=== PATIENT | female | born 1930 ===

== ENCOUNTER 2016-11-06 12:10 | Emergency (ER) | payer OTHER ==
--- NOTE | 2016-11-06 13:04 | ED PDOC ---
Lower Extremity Pain/Injury Time Seen by Provider: 11/06/16 12:40 Chief Complaint (Nursing): Abnormal Skin Integrity Chief Complaint (Provider): Lower Extremity Problem/Injury History Per: Patient History/Exam Limitations: no limitations Onset/Duration Of Symptoms: Hrs (a few hours prior to arrival ) Additional Complaint(s): 12:40 Taryn Sanchez, 86 year old female presents to the ED on 11/06/16 after experiencing an injury to her lower right foot a few hours prior to arrival. The patient states that she was walking in her kitchen, tripped, and banged her right Achilles tendon in furniture. The patient denies any loss of consciousness , dizziness, or chest pain post injury. The patient has a past medical history inclusive of hypertension and her Tetanus shot is up to date. Past Medical History Reviewed: Historical Data, Nursing Documentation, Vital Signs - Medical History PMH: Fractures (vertebral compression; rib ), HTN, Osteoporosis Denies: Arthritis, CHF, COPD, HIV, Hypercholesterolemia, Hypothyroidism, Chronic Kidney Disease, Rheumatoid Arthritis - Family History Family History: States: Unknown Family Hx - Living Arrangements Living Arrangements: With Family - Social History Current smoker - smoking cessation education provided: No - Immunization History Hx Tetanus Toxoid Vaccination: Yes (4 years ago while she was in [place]) - Home Medications Home Medications: Ambulatory Orders Medication Instructions Recorded Aspirin [Aspirin EC] 81 mg PO DAILY 08/11/14 Acetaminophen [Tylenol Extra 500 mg PO Q6 PRN 05/01/16 Strength] Isosorbide Mononitrate [Imdur] 30 mg PO DAILY 05/01/16 Losartan [Cozaar] 50 mg PO DAILY 05/01/16 Megestrol [Megace] 10 ml PO BID 05/01/16 Metoprolol Succinate [Toprol XL] 25 mg PO DAILY 05/01/16 Alendronate [Fosamax] 70 mg PO QWK@0730 #0 tab 05/05/16 Calcium Gluconate [calcium 500 mg PO TID #0 tab 05/05/16 gluconate] Cephalexin [cephalexin] 500 mg PO BID #10 cap 05/05/16 Cyanocobalamin (Vitamin B-12) 1,000 mcg PO DAILY #0 tablet.er 05/05/16 [Vitamin B-12] Ergocalciferol [Drisdol 50,000 1 cap PO Q7D #0 cap 05/05/16 Intl Units Cap] Sulfamethoxazole/Trimethoprim 1 tab PO BID #14 tab 11/06/16 [Bactrim DS 800 mg-160 mg] - Allergies Allergies/Adverse Reactions: Allergies Allergy/AdvReac Type Severity Reaction Status Date / Time No Known Allergies Allergy Verified 11/06/16 12:32 Review of Systems ROS Statement: Except As Marked, All Systems Reviewed And Found Negative Cardiovascular: Negative for: Chest Pain Musculoskeletal: Positive for: Foot Pain (right achilles tendon injury ) Neurological: Negative for: Dizziness, Other (no loss of consciousness ) Physical Exam - Reviewed Nursing Documentation Reviewed: Yes Vital Signs Reviewed: Yes - Physical Exam Appears: Positive for: Non-toxic, No Acute Distress Head Exam: Positive for: ATRAUMATIC, NORMOCEPHALIC Skin: Positive for: Normal Color, Warm, Dry Extremity: Positive for: Normal ROM, Other (4 cm avulsion of right achilles tendon) Neurologic/Psych: Positive for: Alert (awake), Oriented (x3). Negative for: Motor/Sensory Deficits Medical Decision Making Medical Decision Makin:40 Initial Impression: 86 year old female with an avulsion to her right Achilles tendon Initial Plan: * Wound Care Scribe Attestation: Documented by Dede Fenton, acting as a scribe for Makeda Lee MD. Provider Scribe Attestation: All medical record entries made by the Scribe were at my direction and personally dictated by me. I have reviewed the chart and agree that the record accurately reflects my personal performance of the history, physical exam, medical decision making, and the department course for this patient. I have also personally directed, reviewed, and agree with the discharge instructions and disposition. Disposition - Clinical Impression Clinical Impression: Avulsion of skin of right lower leg - Patient ED Disposition Is Patient to be Admitted: No Doctor Will See Patient In The: Office Counseled Patient/Family Regarding: Diagnosis, Need For Followup, Rx Given - Disposition Referrals: Brando Romo MD [Family Provider] - 11/08/16 [facility] [Outside] [employer] [Outside] Disposition: Routine/Home Disposition Time: 13:19 Condition: STABLE Prescriptions: Sulfamethoxazole/Trimethoprim [Bactrim DS 800 mg-160 mg] 1 tab PO BID #14 tab Instructions: Skin Avulsion (ED), Acute Wound Care (ED) Print Language: PORTUGUESE - POA Present On Arrival: Falls Or Trauma
[2016-11-06 13:17] VITALS: BP 127/90; PULSE 106; RESP 93; TEMP 97; O2SAT 93
[2016-11-06] MEDS ORDERED: Tmp-Smz 800 mg-160 mg DS Tab PO STA (13:17)
[2016-11-06] MEDS ORDERED: Tmp-Smz 800 mg-160 mg DS Tab ONE (13:24)
== END 2016-11-06 13:40 | disposition home or self-care (01) ==
LOC: H.ER 12:10
DX: S81.801A Unspecified open wound, right lower leg, initial encounter (principal); W22.8XXA Striking against or struck by other objects, initial encounter; Y92.000 Kitchen of unspecified non-institutional (private) residence as the place of occurrence of the external cause; I10 Essential (primary) hypertension; M81.0 Age-related osteoporosis without current pathological fracture; Z79.82 Long term (current) use of aspirin

== ENCOUNTER 2016-12-26 16:29 | Observation (INO) | payer MEDICARE, OTHER ==
[2016-12-26 16:34] VITALS: RESP 18; O2SAT 92
--- NOTE | 2016-12-26 17:46 | ED PDOC ---
HPI: Chest Pain Time Seen by Provider: 12/26/16 16:40 Chief Complaint (Nursing): Rib Injury Chief Complaint (Provider): Chest Pain History Per: Patient, EMS, Family (son), Ap Operator ([employer] #[id number]) History/Exam Limitations: no limitations Current Symptoms Are (Timing): Still Present Severity: Moderate Quality: "Pain" Additional Complaint(s): Taryn Sanchez is a 86 y/o female presenting to the ER on 12/26/2016 via EMS with complaints of right sided chest pain onset last night. Patient states pain began when she attempted to pecan picker an object under the stove. She has been feeling chest pain intermittently ever since she was diagnosed with rib fracture one year ago in same area. However, she states her pain has been at its worst yesterday. She denies blunt trauma, hematuria, palpitations, left sided chest pain, history of DVT/ PE/ leg pain, other injuries, cough, or hemoptysis. Past Medical History Reviewed: Historical Data, Nursing Documentation, Vital Signs Vital Signs: Last Vital Signs Temp 97.9 F 12/26/16 23:09 Pulse 86 12/26/16 23:05 Resp 18 12/26/16 23:09 BP 144/100 H 12/26/16 23:05 Pulse Ox 92 L 12/26/16 23:08 - Medical History PMH: Fractures (vertebral compression; rib ), HTN, Osteoporosis Denies: Arthritis, CHF, COPD, HIV, Hypercholesterolemia, Hypothyroidism, Chronic Kidney Disease, Rheumatoid Arthritis - Surgical History Surgical History: No Surg Hx - Family History Family History: States: Unknown Family Hx - Living Arrangements Living Arrangements: With Family - Social History Current smoker - smoking cessation education provided: No Alcohol: None Drugs: Denies - Immunization History Hx Tetanus Toxoid Vaccination: Yes (4 years ago while she was in [place]) - Home Medications Home Medications: Ambulatory Orders Medication Instructions Recorded Acetaminophen [Tylenol Extra 500 mg PO Q6 PRN 05/01/16 Strength] Losartan [Cozaar] 50 mg PO DAILY 05/01/16 Alendronate [Fosamax] 70 mg PO QWK 12/26/16 Isosorbide Dinitrate [Isosorbide 30 mg PO DAILY 12/26/16 Dinitrate] Lidocaine 5% [Lidoderm] 1 ea TD DAILY PRN #10 patch 12/26/16 Metoprolol Tartrate [Lopressor] 25 mg PO DAILY 12/26/16 - Allergies Allergies/Adverse Reactions: Allergies Allergy/AdvReac Type Severity Reaction Status Date / Time No Known Allergies Allergy Verified 11/06/16 12:32 Review of Systems ROS Statement: Except As Marked, All Systems Reviewed And Found Negative Cardiovascular: Positive for: Chest Pain. Negative for: Palpitations Respiratory: Negative for: Cough, Hemoptysis, Sputum Genitourinary Female: Negative for: Hematuria Physical Exam - Reviewed Nursing Documentation Reviewed: Yes Vital Signs Reviewed: Yes - Physical Exam Appears: Positive for: Non-toxic, No Acute Distress Head Exam: Positive for: ATRAUMATIC, NORMOCEPHALIC Skin: Positive for: Normal Color. Negative for: Rash Eye Exam: Positive for: Normal appearance, EOMI, PERRL Neck: Positive for: Normal Cardiovascular/Chest: Positive for: Regular Rate, Rhythm. Negative for: Chest Non Tender (minimal right sided axillary chest wall tenderness) Respiratory: Positive for: Normal Breath Sounds. Negative for: Wheezing, Respiratory Distress Gastrointestinal/Abdominal: Positive for: Normal Exam, Soft. Negative for: Tenderness Back: Positive for: Normal Inspection. Negative for: L CVA Tenderness, R CVA Tenderness Extremity: Positive for: Normal ROM. Negative for: Deformity, Swelling Neurologic/Psych: Positive for: Alert, Oriented, Other (pt is able to speak in complete sentences ). Negative for: Motor/Sensory Deficits - Laboratory Results Result Diagrams: 12/26/16 17:31 12/26/16 17:31 - ECG O2 Sat by Pulse Oximetry: 92 Medical Decision Making Medical Decision Makin:40 Initial Impression- 86 y/o female with right-sided chest pain Initial Plan- * CT Angio Chest * EKG * BNP * CMP * Troponin * CBC w/ differential * Urinalysis Pt will be placed under ED Observation. See ED OBS for further progress. Documented by Ayad Rodriguez, acting as a scribe for Familia Cobb PA-C All medical record entries made by the Scribe were at my direction and personally dictated by me. I have reviewed the chart and agree that the record accurately reflects my personal performance of the history, physical exam, medical decision making, and the department course for this patient. I have also personally directed, reviewed, and agree with the discharge instructions and disposition. ED OBSERVATION Discharge: Yes Date of observation admission: 12/26/16 Time of observation admission: 17:32 - Observation admission statement Patient is being placed in observation because:: Secondary to extensive ED workup - Goals of Observation Goals of observation are:: Pending labs and CT Angio - Progress Note Progress Note: 12/26/16 22:05 Pt. in no distress. 12/26/16 23:06 CT chest w/ contrast: IMPRESSION: Cardiomegaly and atherosclerotic disease, no aneurysm, dissection or pulmonary embolus; small left effusion with bibasilar airspace disease, atelectasis and or infiltrate; osteopenia with multiple compression fractures and exaggeration of thoracic kyphosis R rib series: no acute fx Pt. informed of results using credit consultant [id number]. Reports no chest pain or SOB. Repeat POX: 96% on RA, BP: 146/90, HR: 88 Case d/w Dr. Gayle who states pt. can be discharged with lidoderm patch. Disposition - Clinical Impression Clinical Impression: Chest pain - Patient ED Disposition Is Patient to be Admitted: No - Disposition Disposition: Routine/Home Disposition Time: 23:08 Condition: STABLE
[2016-12-26 17:48] LABS: BASO % 0.4 % (0.0-2.0); LYMPH # 0.9 K/uL (1.0-4.3); LYMPH % 17.9 % (20.0-40.0); MEAN CELL VOLUME 97.3 fl (81.0-99.0); MEAN CORPUSCULAR HEMOGLOBIN 32.5 pg (27.0-31.0); MEAN CORPUSCULAR HGB CONC 33.5 g/dL (33.0-37.0); MEAN PLATELET VOLUME 7.7 fl (7.2-11.7); MONO # 0.3 K/uL (0.0-0.8); MONO % 5.3 % (0.0-10.0); NEUT # 3.6 K/uL (1.8-7.0); NEUT % 75.4 % (50.0-75.0); NRBC % 0.3 % (0.0-0.0); RBC 3.67 Mil/uL (3.80-5.20); RED CELL DISTRIBUTION WIDTH 16.6 % (11.5-14.5); WHITE BLOOD COUNT 4.8 K/uL (4.8-10.8)
[2016-12-26 18:01] LABS: ALB/GLOB RATIO 0.7 (1.0-2.1); ALBUMIN 4.1 g/dL (3.5-5.0); ALT/SGPT 28 U/L (9-52); AST/SGOT 35 U/L (14-36); BLOOD UREA NITROGEN 11 mg/dl (7-17); CALCIUM 9.8 mg/dL (8.4-10.2); GFR AFRICAN-AMERICAN > 60; GFR NON-AFRICAN AMERICAN > 60
[2016-12-26 18:14] LABS: B-TYPE NATRIURETIC PEPTIDE 922 pg/ml (0-900)
[2016-12-26] MEDS ORDERED: Iohexol 300 100 ML IJ ONE (20:31)
[2016-12-26] MEDS ORDERED: Sodium Chloride 0.9% 50 ML IV ONE (20:31)
--- NOTE | 2016-12-26 21:46 | CT ---
EXAM: CT Angiography Chest With Intravenous Contrast CLINICAL HISTORY: 86 years old, female; Pain; Chest pain; Right-sided chest pain; Additional info: R sided chest pain; Hypoxic TECHNIQUE: Axial computed tomographic angiography images of the chest with intravenous contrast using pulmonary embolism protocol. This CT exam was performed using one or more of the following dose reduction techniques: automated exposure control, adjustment of the mA and/or kV according to patient size, and/or use of iterative reconstruction technique. MIP reconstructed images were created and reviewed. Coronal and sagittal reformatted images were created and reviewed. CONTRAST: 65 mL of omnipaque administered intravenously. EXAM DATE/TIME: 12/26/2016 5:16 PM COMPARISON: Prior images are not available for review. FINDINGS: Heart, aorta and Pulmonary arteries: The heart is enlarged. There are coronary calcifications. There is no pericardial effusion. The aorta is mildly ectatic. There calcifications in the aorta and great vessels. There are no pulmonary emboli. Lungs and pleural spaces: Trachea and main bronchi are patent. Lungs are hyperinflated. There is apical pleural-parenchymal scarring. There is atelectasis/scarring at both lung bases. There is a small left effusion. Mediastinum: There are pathologically enlarged mediastinal or hilar nodes. The esophagus is unremarkable. Thyroid: Thyroid is unremarkable Bones/joints: There is exaggeration of the thoracic kyphosis. Bony structures are diffusely osteopenic. There is mild loss of height T4, T5, T7 and T11. There is moderate compression deformity L1. There is severe compression deformities and wedging T6, T8, T9 and T12.Bony structures are osteopenic. Soft tissues: unremarkable Lymph nodes: See above. Upper abdomen: There are no acute abnormalities in the visualized portion of the abdomen. IMPRESSION: Cardiomegaly and atherosclerotic disease, no aneurysm, dissection or pulmonary embolus; small left effusion with bibasilar airspace disease, atelectasis and or infiltrate; osteopenia with multiple compression fractures and exaggeration of thoracic kyphosis Additional findings as described above.
--- NOTE | 2016-12-26 22:15 | RAD ---
EXAM: XR Right Ribs and AP Chest, 3 or More Views CLINICAL HISTORY: 86 years old, female; Pain; Other: Right sided chest pain; Additional info: R sided chest pain TECHNIQUE: Frontal and oblique views of the right ribs and frontal view of the chest. EXAM DATE/TIME: 12/26/2016 6:36 PM COMPARISON: CTA chest 12/26/16 FINDINGS: Heart: The heart is enlarged. Mediastinum: Aorta is uncoiled. There are calcifications in the aortic wall. Hilar contours are unremarkable Vascularity: Pulmonary vascularity is normal. Lungs: There is mild prominence of interstitial markings. There patchy opacities at the lung bases. Pleura: There are no large effusions. Osseous structures: Bony structures are osteopenic. There degenerative changes in the spine. There are multiple compression fractures. Severe osteopenia limits evaluation of the ribs. No acute displaced rib fractures are visualized. Monitor leads obscure right-sided ribs Upper abdomen: There is contrast during prior study kidneys collecting systems and ureters. Impression: Cardiomegaly and atherosclerotic disease; minimal airspace disease at both lung bases; osteopenia and multiple compression fractures; no acute displaced rib fracture identified An acute nondisplaced rib fracture may be radiographically occult
[2016-12-26 23:09] VITALS: BP 144/100; PULSE 86; TEMP 97.9
--- NOTE | 2016-12-27 08:19 | CARD ---
APPROVED REPORT EKG Measurement Heart [id number] [id number] <Conclusion> Normal sinus rhythm Voltage criteria for left ventricular hypertrophy Cannot rule out Anteroseptal infarct, age undetermined Prolonged QT Abnormal ECG
== END 2016-12-26 23:09 | disposition home or self-care (01) ==
LOC: H.ER 16:29 → H.EROBSV 17:32
PROVIDERS: ADMIT Emergency Medicine; ATTEND Emergency Medicine
DX: R07.9 Chest pain, unspecified (principal); I10 Essential (primary) hypertension; M81.0 Age-related osteoporosis without current pathological fracture
CPT/HCPCS: 71101; 71275; 80053; 83880; 84484; 85025; 93005; 99284; G0378; Q9967

== ENCOUNTER 2017-05-01 14:28 | Emergency (ER) | payer MEDICARE, OTHER ==
[2017-05-01 14:34] VITALS: TEMP 97; O2SAT 99
--- NOTE | 2017-05-01 14:49 | ED PDOC ---
HPI: General Adult Time Seen by Provider: 05/01/17 14:36 Chief Complaint (Nursing): Abnormal Skin Integrity Chief Complaint (Provider): Abnormal Skin Interity History Per: Patient History/Exam Limitations: no limitations Onset/Duration Of Symptoms: Hrs (x 2) Have you had recent travel within the past 21 days to any of the following countries: [place], [place], [place] or [place]?: No Current Symptoms Are (Timing): Still Present Additional Complaint(s): Taryn is an 86 year old female, who was brought by EMS, presents to the Emergency Department for evaluation of a skin avulsion on her right arm. Patient states that at around 13:00 she was sitting on a chair where she tried to reach for the refrigerator, but upon reaching the refrigerator, she fell on her side. Per homemaker, grandson called her at 14:00. Denies head trauma, loss of consciousness. PMD: Brando Romo Past Medical History Reviewed: Historical Data, Nursing Documentation, Vital Signs Vital Signs: Last Vital Signs Temp 97.0 F L 05/01/17 14:29 Pulse 95 H 05/01/17 14:45 Resp 20 05/01/17 14:45 BP 161/95 H 05/01/17 14:45 Pulse Ox 99 05/01/17 15:22 - Medical History PMH: Fractures (vertebral compression; rib ), HTN, Osteoporosis Denies: Arthritis, CHF, COPD, HIV, Hypercholesterolemia, Hypothyroidism, Chronic Kidney Disease, Rheumatoid Arthritis - Family History Family History: States: Unknown Family Hx - Immunization History Hx Tetanus Toxoid Vaccination: Yes (4 years ago while she was in [place]) - Home Medications Home Medications: Ambulatory Orders Medication Instructions Recorded Acetaminophen [Tylenol Extra 500 mg PO Q6 PRN 05/01/16 Strength] Losartan [Cozaar] 50 mg PO DAILY 05/01/16 Alendronate [Fosamax] 70 mg PO QWK 12/26/16 Isosorbide Dinitrate [Isosorbide 30 mg PO DAILY 12/26/16 Dinitrate] Lidocaine 5% [Lidoderm] 1 ea TD DAILY PRN #10 patch 12/26/16 Metoprolol Tartrate [Lopressor] 25 mg PO DAILY 12/26/16 - Allergies Allergies/Adverse Reactions: Allergies Allergy/AdvReac Type Severity Reaction Status Date / Time No Known Allergies Allergy Verified 11/06/16 12:32 Review of Systems ROS Statement: Except As Marked, All Systems Reviewed And Found Negative Neurological: Negative for: Other (loss of consciousness nad head trauma) Physical Exam - Reviewed Nursing Documentation Reviewed: Yes Vital Signs Reviewed: Yes - Physical Exam Appears: Positive for: Non-toxic, No Acute Distress Head Exam: Positive for: NORMAL INSPECTION Skin: Negative for: Normal Color (see comments) Respiratory: Negative for: Respiratory Distress Extremity: Positive for: Normal ROM (Full ROM elbow, shoulder, and wrist) Neurologic/Psych: Positive for: Alert Comments: (+): right arm - 4 X 4 cm skin avulsion ; bleeding control; no tenderness - ECG O2 Sat by Pulse Oximetry: 99 (RA) Pulse Ox Interpretation: Normal Medical Decision Making Medical Decision Makin yo with skin avulsion of arm. - sterile dressing Pt BP elevated, states she did not take her 2 antihypertensives, has medications in ED, instructed to take now. Disposition - Clinical Impression Clinical Impression: Skin avulsion - Disposition Disposition: Routine/Home Disposition Time: 15:01 Condition: STABLE Additional Instructions: FOLLOW-UP WITH PMD FOR REEVALUATION. Instructions: Skin Avulsion (ED) Forms: [employer] (Slovenian) Print Language: SAO TOMEAN
[2017-05-01 15:40] VITALS: BP 161/95; PULSE 95; RESP 20
== END 2017-05-01 15:40 | disposition home or self-care (01) ==
LOC: H.ER 14:28
DX: T14.8XXA Other injury of unspecified body region, initial encounter (principal); W22.8XXA Striking against or struck by other objects, initial encounter; Y92.89 Other specified places as the place of occurrence of the external cause

== ENCOUNTER 2017-05-12 11:38 | Observation (INO) | payer MEDICARE, OTHER ==
--- NOTE | 2017-05-12 12:04 | ED PDOC ---
HPI: Chest Pain Time Seen by Provider: 05/12/17 11:55 Chief Complaint (Nursing): Chest Pain History Per: Patient Onset/Duration Of Symptoms: Days (3) Current Symptoms Are (Timing): Intermittent Episodes Severity: Mild Pain Scale Rating Of: 2 Quality: Tightness Associated Symptoms: denies: Dyspnea Modifying Factors: None Exacerbating Factors: None Additional Complaint(s): Substernal chest pain described as tightness, nonradiating. No SOB x 3 days. No fever or cough, no leg pain Past Medical History Vital Signs: Last Vital Signs Temp 97.7 F 05/12/17 11:45 Pulse 78 05/12/17 11:45 Resp 18 05/12/17 11:45 BP 156/87 H 05/12/17 11:45 Pulse Ox 94 L 05/12/17 12:04 - Medical History PMH: Fractures (vertebral compression; rib ), HTN, Osteoporosis Denies: Arthritis, CHF, COPD, HIV, Hypercholesterolemia, Hypothyroidism, Chronic Kidney Disease, Rheumatoid Arthritis - Family History Family History: States: Unknown Family Hx - Immunization History Hx Tetanus Toxoid Vaccination: Yes (4 years ago while she was in [place]) - Home Medications Home Medications: Ambulatory Orders Medication Instructions Recorded Acetaminophen [Tylenol Extra 500 mg PO Q6 PRN 05/01/16 Strength] Losartan [Cozaar] 50 mg PO DAILY 05/01/16 Alendronate [Fosamax] 70 mg PO QWK 12/26/16 Isosorbide Dinitrate [Isosorbide 30 mg PO DAILY 12/26/16 Dinitrate] Lidocaine 5% [Lidoderm] 1 ea TD DAILY PRN #10 patch 12/26/16 Metoprolol Tartrate [Lopressor] 25 mg PO DAILY 12/26/16 - Allergies Allergies/Adverse Reactions: Allergies Allergy/AdvReac Type Severity Reaction Status Date / Time No Known Allergies Allergy Verified 11/06/16 12:32 Review of Systems ROS Statement: Except As Marked, All Systems Reviewed And Found Negative Cardiovascular: Positive for: Chest Pain Physical Exam - Reviewed Nursing Documentation Reviewed: Yes Vital Signs Reviewed: Yes - Physical Exam Appears: Positive for: Non-toxic, No Acute Distress Head Exam: Positive for: ATRAUMATIC, NORMAL INSPECTION, NORMOCEPHALIC Skin: Positive for: Normal Color, Warm, DRY Eye Exam: Positive for: EOMI, Normal appearance, PERRL ENT: Positive for: Normal ENT Inspection Neck: Positive for: Normal, Painless ROM Cardiovascular/Chest: Positive for: Regular Rate, Rhythm Respiratory: Positive for: CNT, Normal Breath Sounds Gastrointestinal/Abdominal: Positive for: Normal Exam, Bowel Sounds, Soft Back: Negative for: Normal Inspection (Kyphotic) Extremity: Positive for: Normal ROM Neurologic/Psych: Positive for: Alert, Oriented - Laboratory Results Result Diagrams: 05/12/17 12:20 05/12/17 12:20 - ECG O2 Sat by Pulse Oximetry: 94 Disposition - Clinical Impression Clinical Impression: Chest pain - Patient ED Disposition Is Patient to be Admitted: Yes - Disposition Disposition Time: 13:10 Condition: STABLE Forms: [employer] (Wolof) - Pt Status Changed To: Hospital Disposition Of: Observation - POA Present On Arrival: None
[2017-05-12 12:46] LABS: ALKALINE PHOSPHATASE 95 U/L (38-126); ALT/SGPT 19 U/L (9-52); AST/SGOT 22 U/L (14-36); BILIRUBIN,TOTAL 0.6 mg/dl (0.2-1.3); BLOOD UREA NITROGEN 14 mg/dl (7-17); CALCIUM 9.2 mg/dL (8.4-10.2); CARBON DIOXIDE 30 mmol/L (22-30); CHLORIDE 103 mmol/L (98-107); GFR AFRICAN-AMERICAN > 60; GLUCOSE,RANDOM 99 mg/dL (65-105); POTASSIUM 3.9 MMOL/L (3.6-5.0); SODIUM 146 mmol/l (132-148); TOTAL PROTEIN 9.3 G/DL (6.3-8.2)
[2017-05-12 12:50] LABS: ALB/GLOB RATIO 0.7 (1.0-2.1)
[2017-05-12 13:05] LABS: BASO % 0.3 % (0.0-2.0); EOS # 0.1 K/uL (0.0-0.7); EOS % 2.7 % (0.0-4.0); HEMATOCRIT 27.4 % (34.0-47.0); LYMPH % 31.9 % (20.0-40.0); MEAN PLATELET VOLUME 6.9 fl (7.2-11.7); MONO # 0.2 K/uL (0.0-0.8); MONO % 7.6 % (0.0-10.0); NEUT # 1.8 K/uL (1.8-7.0); NEUT % 57.5 % (50.0-75.0); NRBC % 0.4 % (0.0-0.0); RED CELL DISTRIBUTION WIDTH 17.1 % (11.5-14.5); WHITE BLOOD COUNT 3.2 K/uL (4.8-10.8)
--- NOTE | 2017-05-12 13:08 | RAD ---
HISTORY: cough COMPARISON: Chest radiograph dated 12/26/2016. FINDINGS: LUNGS: Stable chronic prominence of the bilateral interstitial markings. No focal consolidation. PLEURA: No significant pleural effusion identified, no pneumothorax apparent. CARDIOVASCULAR: Atherosclerotic aortic calcifications. Unchanged cardiomediastinal silhouette. OSSEOUS STRUCTURES: Unchanged. VISUALIZED UPPER ABDOMEN: Normal. OTHER FINDINGS: None. IMPRESSION: Stable chronic prominence of the bilateral interstitial markings. No focal consolidation or pleural effusion.
--- NOTE | 2017-05-12 13:09 | CARD ---
APPROVED REPORT EKG Measurement Heart [id number] <Conclusion> Normal sinus rhythm Minimal voltage criteria for LVH, may be normal variant Septal infarct, age undetermined Abnormal ECG
[2017-05-13 08:08] LABS: BASO % 0.2 % (0.0-2.0); EOS # 0.1 K/uL (0.0-0.7); EOS % 2.3 % (0.0-4.0); HEMATOCRIT 26.7 % (34.0-47.0); LYMPH # 1.2 K/uL (1.0-4.3); LYMPH % 36.9 % (20.0-40.0); MEAN CELL VOLUME 98.9 fl (81.0-99.0); MEAN CORPUSCULAR HEMOGLOBIN 33.1 pg (27.0-31.0); MEAN CORPUSCULAR HGB CONC 33.5 g/dL (33.0-37.0); MONO # 0.2 K/uL (0.0-0.8); NEUT # 1.8 K/uL (1.8-7.0); NEUT % 53.6 % (50.0-75.0); NRBC % 0.4 % (0.0-0.0); RED CELL DISTRIBUTION WIDTH 17.4 % (11.5-14.5); WHITE BLOOD COUNT 3.4 K/uL (4.8-10.8)
[2017-05-13 08:17] LABS: BLOOD UREA NITROGEN 16 mg/dl (7-17); CALCIUM 9.4 mg/dL (8.4-10.2); CARBON DIOXIDE 32 mmol/L (22-30); CHLORIDE 102 mmol/L (98-107); CHOLESTEROL 96 mg/dL (0-199); GFR AFRICAN-AMERICAN > 60; GLUCOSE,RANDOM 85 mg/dL (65-105); POTASSIUM 4.3 MMOL/L (3.6-5.0); SODIUM 144 mmol/l (132-148)
[2017-05-13 08:44] LABS: THYROID STIMULATING HORMONE 0.52 mIU/ML (0.46-4.68)
[2017-05-13] MEDS ORDERED: Enoxaparin 40 mg Syringe SC SCH (09:00)
[2017-05-13] MEDS ORDERED: Metoprolol Succinate 25 mg XL Tab PO SCH (09:00)
[2017-05-13 11:53] VITALS: TEMP 98.1; O2SAT 99
--- NOTE | 2017-05-13 12:42 | CARD ---
APPROVED REPORT EKG Measurement Heart [id number] <Conclusion> Normal sinus rhythm Minimal voltage criteria for LVH, may be normal variant Septal infarct, age undetermined Abnormal ECG
--- NOTE | 2017-05-13 12:46 | CARD ---
APPROVED REPORT EKG Measurement Heart [id number] <Conclusion> Normal sinus rhythm Minimal voltage criteria for LVH, may be normal variant Anterior infarct, age undetermined Abnormal ECG
--- NOTE | 2017-05-13 13:01 | CP.PCM.CON ---
History of Present Illness - History of Present Illness History of Present Illness: this 86-year-old hypertensive female came to the emergency room complaining of a vague sense of chest discomfort for approximately 3 days and finally came to the emergency room when this became more pronounced. This was not accompanied by any nausea vomiting palpitations or sudden shortness of breath. The patient does admit that there is tenderness in the right second intercostal space in the parasternal area. She denies any injury to this region. She is a hypertensive who denies any history of diabetes or prior myocardial infarction. She does not have any symptoms of congestive cardiac failure such as shortness of breath or pedal edema or orthopnea. She denied any history of smoking. She admitted to taking antihypertensives medications for a long time. Physical examination shows a thin built frail elderly female lying comfortably in bed who indicates that there is tenderness in the right parasternal region second intercostal space. Her heart rate was 64 bpm and regular and her blood pressure shirlene 110/70 mmHg. Her jugular venous pressure was not elevated and there was no edema over the lower extremities. The patient is markedly kyphotic. Her extremities were warm and and nailbeds were pink. There was no central or peripheral cyanosis. There was no clubbing. The apex was not palpable.her first and second heart sounds were normal. There was no S3 gallop and there were no rales. Abdomen was nontender and there was no organomegaly. Her electrocardiogram showed sinus rhythm with a pattern suggestive of left ventricular hypertrophy and lateral Q waves from V3 to V6. Multiple electrocardiograms did not show any evolving ST-T abnormalities of fresh Q waves. Her troponin up to 3 times in a row 8 hours apart was negative for any evidence of myocyte injury. Her hemoglobin and hematocrit show a mild drop from her hemoglobin levels of December and her MCV has gradually increased from 90 to approximately 100. B12 deficiency or folate deficiency should BE ruled out. Her BUN and creatinine were normal. Impression: chest wall pain in the patient with a history of hypertension. Acute coronary syndrome has been ruled out. The patient may be allowed to return home and be managed as an outpatient. Past Patient History - Tetanus Immunizations Tetanus Immunization: Unknown - Past Medical History & Family History Past Medical History?: Yes - Past Social History Smoking Status: Never Smoked - CARDIAC Hx Congestive Heart Failure: No Hx Hypercholesterolemia: No Hx Hypertension: Yes - PULMONARY Hx Chronic Obstructive Pulmonary Disease (COPD): No - NEUROLOGICAL Hx Neurological Disorder: No HX Cerebrovascular Accident: No - HEENT Hx HEENT Problems: No - RENAL Hx Chronic Kidney Disease: No - ENDOCRINE/METABOLIC Hx Hypothyroidism: No - HEMATOLOGICAL/ONCOLOGICAL Hx Human Immunodeficiency Virus (HIV): No - INTEGUMENTARY Hx Dermatological Problems: No - MUSCULOSKELETAL/RHEUMATOLOGICAL Hx Falls: Yes (FELL 2 DAYS AGO) Hx Osteoporosis: Yes Other/Comment: VERTEBRAL COMPRESSION FX. KYPHOSIS - GASTROINTESTINAL Hx Gastrointestinal Disorders: Yes Hx Constipation: Yes - GENITOURINARY/GYNECOLOGICAL Hx Genitourinary Disorders: No - PSYCHIATRIC Hx Substance Use: No - SURGICAL HISTORY Hx Surgeries: No - ANESTHESIA Hx Anesthesia: No Hx Anesthesia Reactions: No Hx Malignant Hyperthermia: No Has any member of the family had a problem w/ anesthesia?: No Meds Allergies/Adverse Reactions: Allergies Allergy/AdvReac Type Severity Reaction Status Date / Time No Known Allergies Allergy Verified 11/06/16 12:32 - Medications Medications: Current Medications Alendronate Sodium (Fosamax) 70 mg PO QWK@0730 [facility] Aspirin (Aspirin) 325 mg PO DAILY [facility] Last Admin: 05/13/17 08:51 Dose: 325 mg Enoxaparin Sodium (Lovenox) 40 mg SC DAILY [facility] PRN Reason: Protocol Last Admin: 05/13/17 08:52 Dose: 40 mg Isosorbide Mononitrate (Imdur Er) 30 mg PO DAILY [facility] Last Admin: 05/13/17 08:51 Dose: 30 mg Losartan Potassium (Cozaar) 25 mg PO DAILY [facility] Last Admin: 05/13/17 08:51 Dose: 25 mg Metoprolol Succinate (Toprol Xl) 25 mg PO DAILY [facility] Last Admin: 05/13/17 08:51 Dose: 25 mg Results - Vital Signs Recent Vital Signs: Last Vital Signs Temp 98.1 F 05/13/17 11:52 Pulse 109 H 05/13/17 11:52 Resp 18 05/13/17 11:52 BP 98/61 L 05/13/17 11:52 Pulse Ox 99 05/13/17 11:52 - Labs Result Diagrams: 05/13/17 06:30 05/13/17 06:30 Labs: Laboratory Results - last 24 hr 05/12/17 05/12/17 05/13/17 12:20 20:30 06:30 WBC 3.2 L RBC 2.74 L Hgb 9.0 L D Hct 27.4 L MCV 100.0 H D MCH 33.0 H MCHC 33.0 RDW 17.1 H Plt Count 204 MPV 6.9 L Neut % (Auto) 57.5 Lymph % (Auto) 31.9 Clark % (Auto) 7.6 Eos % (Auto) 2.7 Baso % (Auto) 0.3 Neut # 1.8 Lymph # 1.0 Clark # 0.2 Eos # 0.1 Baso # 0.0 Sodium 144 Potassium 4.3 Chloride 102 Carbon Dioxide 32 H Anion Gap 14 BUN 16 Creatinine 0.6 L Est GFR ( Amer) > 60 Est GFR (Non-Af Amer) > 60 Random Glucose 85 Calcium 9.4 Troponin I < 0.0120 0.0140 Triglycerides 59 Cholesterol 96 LDL Cholesterol Direct 30 HDL Cholesterol 40 TSH 3rd Generation 0.52 05/13/17 06:30 WBC 3.4 L RBC 2.70 L Hgb 8.9 L Hct 26.7 L MCV 98.9 MCH 33.1 H MCHC 33.5 RDW 17.4 H Plt Count 224 MPV 7.0 L Neut % (Auto) 53.6 Lymph % (Auto) 36.9 Clark % (Auto) 7.0 Eos % (Auto) 2.3 Baso % (Auto) 0.2 Neut # 1.8 Lymph # 1.2 Clark # 0.2 Eos # 0.1 Baso # 0.0 Sodium Potassium Chloride Carbon Dioxide Anion Gap BUN Creatinine Est GFR ( Amer) Est GFR (Non-Af Amer) Random Glucose Calcium Troponin I Triglycerides Cholesterol LDL Cholesterol Direct HDL Cholesterol TSH 3rd Generation
--- NOTE | 2017-05-13 15:54 | CP.PCM.HP ---
Past Patient History - Tetanus Immunizations Tetanus Immunization: Unknown - Past Medical History & Family History Past Medical History?: Yes - Past Social History Smoking Status: Never Smoked - CARDIAC Hx Congestive Heart Failure: No Hx Hypercholesterolemia: No Hx Hypertension: Yes - PULMONARY Hx Chronic Obstructive Pulmonary Disease (COPD): No - NEUROLOGICAL Hx Neurological Disorder: No HX Cerebrovascular Accident: No - HEENT Hx HEENT Problems: No - RENAL Hx Chronic Kidney Disease: No - ENDOCRINE/METABOLIC Hx Hypothyroidism: No - HEMATOLOGICAL/ONCOLOGICAL Hx Human Immunodeficiency Virus (HIV): No - INTEGUMENTARY Hx Dermatological Problems: No - MUSCULOSKELETAL/RHEUMATOLOGICAL Hx Falls: Yes (FELL 2 DAYS AGO) Hx Osteoporosis: Yes Other/Comment: VERTEBRAL COMPRESSION FX. KYPHOSIS - GASTROINTESTINAL Hx Gastrointestinal Disorders: Yes Hx Constipation: Yes - GENITOURINARY/GYNECOLOGICAL Hx Genitourinary Disorders: No - PSYCHIATRIC Hx Substance Use: No - SURGICAL HISTORY Hx Surgeries: No - ANESTHESIA Hx Anesthesia: No Hx Anesthesia Reactions: No Hx Malignant Hyperthermia: No Has any member of the family had a problem w/ anesthesia?: No Meds Allergies/Adverse Reactions: Allergies Allergy/AdvReac Type Severity Reaction Status Date / Time No Known Allergies Allergy Verified 11/06/16 12:32 Results - Vital Signs Recent Vital Signs: Last Vital Signs Temp 98.1 F 05/13/17 11:52 Pulse 109 H 05/13/17 11:52 Resp 18 05/13/17 11:52 BP 98/61 L 05/13/17 11:52 Pulse Ox 99 05/13/17 11:52 - Labs Result Diagrams: 05/13/17 06:30 05/13/17 06:30 Labs: Laboratory Results - last 24 hr 05/12/17 05/13/17 05/13/17 20:30 06:30 06:30 WBC 3.4 L RBC 2.70 L Hgb 8.9 L Hct 26.7 L MCV 98.9 MCH 33.1 H MCHC 33.5 RDW 17.4 H Plt Count 224 MPV 7.0 L Neut % (Auto) 53.6 Lymph % (Auto) 36.9 Porter % (Auto) 7.0 Eos % (Auto) 2.3 Baso % (Auto) 0.2 Neut # 1.8 Lymph # 1.2 Porter # 0.2 Eos # 0.1 Baso # 0.0 Sodium 144 Potassium 4.3 Chloride 102 Carbon Dioxide 32 H Anion Gap 14 BUN 16 Creatinine 0.6 L Est GFR ( Amer) > 60 Est GFR (Non-Af Amer) > 60 Random Glucose 85 Calcium 9.4 Troponin I < 0.0120 0.0140 Triglycerides 59 Cholesterol 96 LDL Cholesterol Direct 30 HDL Cholesterol 40 TSH 3rd Generation 0.52
--- NOTE | 2017-05-13 15:55 | CP.PCM.DIS ---
Provider - Provider Date of Admission: 05/12/17 13:11 Attending physician: Seamus Taylor MD Time Spent in preparation of Discharge (in minutes): 25 Hospital Course - Lab Results Lab Results: Most Recent Lab Values WBC 3.4 K/uL (4.8-10.8) L 05/13/17 06:30 RBC 2.70 Mil/uL (3.80-5.20) L 05/13/17 06:30 Hgb 8.9 g/dL (12.0-16.0) L 05/13/17 06:30 Hct 26.7 % (34.0-47.0) L 05/13/17 06:30 MCV 98.9 fl (81.0-99.0) 05/13/17 06:30 MCH 33.1 pg (27.0-31.0) H 05/13/17 06:30 MCHC 33.5 g/dL (33.0-37.0) 05/13/17 06:30 RDW 17.4 % (11.5-14.5) H 05/13/17 06:30 Plt Count 224 K/uL (130-400) 05/13/17 06:30 MPV 7.0 fl (7.2-11.7) L 05/13/17 06:30 Neut % (Auto) 53.6 % (50.0-75.0) 05/13/17 06:30 Lymph % (Auto) 36.9 % (20.0-40.0) 05/13/17 06:30 Hubbard % (Auto) 7.0 % (0.0-10.0) 05/13/17 06:30 Eos % (Auto) 2.3 % (0.0-4.0) 05/13/17 06:30 Baso % (Auto) 0.2 % (0.0-2.0) 05/13/17 06:30 Neut # 1.8 K/uL (1.8-7.0) 05/13/17 06:30 Lymph # 1.2 K/uL (1.0-4.3) 05/13/17 06:30 Hubbard # 0.2 K/uL (0.0-0.8) 05/13/17 06:30 Eos # 0.1 K/uL (0.0-0.7) 05/13/17 06:30 Baso # 0.0 K/uL (0.0-0.2) 05/13/17 06:30 Sodium 144 mmol/l (132-148) 05/13/17 06:30 Potassium 4.3 MMOL/L (3.6-5.0) 05/13/17 06:30 Chloride 102 mmol/L (98-107) 05/13/17 06:30 Carbon Dioxide 32 mmol/L (22-30) H 05/13/17 06:30 Anion Gap 14 (10-20) 05/13/17 06:30 BUN 16 mg/dl (7-17) 05/13/17 06:30 Creatinine 0.6 mg/dl (0.7-1.2) L 05/13/17 06:30 Est GFR ( Amer) > 60 05/13/17 06:30 Est GFR (Non-Af Amer) > 60 05/13/17 06:30 Random Glucose 85 mg/dL (65-105) 05/13/17 06:30 Calcium 9.4 mg/dL (8.4-10.2) 05/13/17 06:30 Total Bilirubin 0.6 mg/dl (0.2-1.3) 05/12/17 12:20 AST 22 U/L (14-36) 05/12/17 12:20 ALT 19 U/L (9-52) 05/12/17 12:20 Alkaline Phosphatase 95 U/L (38-126) 05/12/17 12:20 Troponin I 0.0140 ng/mL (0.00-0.120) 05/13/17 06:30 Total Protein 9.3 G/DL (6.3-8.2) H 05/12/17 12:20 Albumin 3.7 g/dL (3.5-5.0) 05/12/17 12:20 Globulin 5.6 gm/dL (2.2-3.9) H 05/12/17 12:20 Albumin/Globulin Ratio 0.7 (1.0-2.1) L 05/12/17 12:20 Triglycerides 59 mg/DL (0-149) 05/13/17 06:30 Cholesterol 96 mg/dL (0-199) 05/13/17 06:30 LDL Cholesterol Direct 30 mg/dL (0-129) 05/13/17 06:30 HDL Cholesterol 40 MG/DL (30-70) 05/13/17 06:30 TSH 3rd Generation 0.52 mIU/ML (0.46-4.68) 05/13/17 06:30 Discharge Exam - Head Exam Head Exam: ATRAUMATIC, NORMAL INSPECTION, NORMOCEPHALIC Discharge Plan - Follow Up Plan Condition: STABLE Disposition: HOME/ ROUTINE Instructions: Chest Pain (DC)
[2017-05-13 15:56] VITALS: BP 93/56; PULSE 99; RESP 16
[2017-05-15] MEDS ORDERED: ALENDRONATE 70 MG TAB PO SCH (07:30)
== END 2017-05-13 16:58 | disposition home or self-care (01) ==
LOC: H.ER 11:38 → H.ERHOLD 13:11 → H.TEL 16:32
PROVIDERS: ADMIT Internal Medicine; ATTEND Internal Medicine
DX: R07.89 Other chest pain (principal); R07.9 Chest pain, unspecified; I10 Essential (primary) hypertension; M40.209 Unspecified kyphosis, site unspecified; M48.50XA Collapsed vertebra, not elsewhere classified, site unspecified, initial encounter for fracture; M81.0 Age-related osteoporosis without current pathological fracture; K59.00 Constipation, unspecified; W19.XXXA Unspecified fall, initial encounter
CPT/HCPCS: 36415; 71010; 80048; 80053; 80061; 84443; 84484; 85025; 93005; 99283; G0378; J1650

== ENCOUNTER 2017-07-01 14:26 | Inpatient (IN) | payer MEDICARE, OTHER ==
[2017-07-01] MEDS ORDERED: Nitroglycerin 2% Ointment Foilpak UD TOP STA (15:28)
[2017-07-01] MEDS ORDERED: EnalaprilAT 1.25 mg/ml Inj IV STA (15:28)
[2017-07-01] MEDS ORDERED: EnalaprilAT 1.25 mg/ml Inj ONE (15:34)
[2017-07-01 15:47] LABS: ABG ALLEN TEST YES; ARTERIAL BLOOD GAS HCO3 29.6 mmol/L (21-28); ARTERIAL BLOOD GAS PCO2 47 mm/Hg (35-45); ARTERIAL BLOOD GAS PH 7.43 (7.35-7.45); ARTERIAL BLOOD GAS PO2 89 mm/Hg (80-100); ARTERIAL BLOOD GAS TCO2 32.6 mmol/L (22-28)
--- NOTE | 2017-07-01 16:06 | RAD ---
HISTORY: sob COMPARISON: Chest radiograph dated 05/12/2017. FINDINGS: LUNGS: Stable chronic prominence of the bilateral interstitial markings. PLEURA: No significant pleural effusion identified, no pneumothorax apparent. CARDIOVASCULAR: Atherosclerotic aortic calcifications. Cardiomediastinal silhouette unchanged. OSSEOUS STRUCTURES: Unchanged. VISUALIZED UPPER ABDOMEN: Normal. OTHER FINDINGS: None. IMPRESSION: Stable chronic prominence of the bilateral interstitial markings. No focal consolidation or pleural effusion.
--- NOTE | 2017-07-01 16:17 | ED PDOC ---
HPI: SOB/CHF/COPD Chief Complaint (Provider): SOB, back pain History Per: Patient History/Exam Limitations: no limitations Onset/Duration Of Symptoms: Days Current Symptoms Are (Timing): Still Present <Dora Ledezma - Last Filed: 07/01/17 19:53> <Ally Gayle - Last Filed: 07/02/17 15:13> Time Seen by Provider: 07/01/17 14:53 Chief Complaint (Nursing): Shortness Of Breath Additional Complaint(s): Pt brought in for evaluation of back pain for 2 weeks since most recent fall by he son and granddaughter. On arrival patient appears SOB and granddaughter states they did not notice patient having difficulty breathing at home. Pt denies chest pain at this time. Pt states she has had chest pain, mild over the last week on/off but did not mention it to family. Family and patient deny similar in the past. Family reports multiple falls in the last year. Dressing on right upper arm, and 2 on right lower leg with tape on skin. Family reports only HTN however patient taking isosorbide. (Dora Ledezma) Supervising Attending Note - Supervising Attending Note The Documented history was done by the: Physician Rolling Up Machine Operator, Attending Physician The documented physical exam was done by the: Physician Rolling Up Machine Operator, Attending Physician - Attestation: I have personally seen and examined this patient.: Yes I have fully participated in the care of the patient.: Yes I have reviewed all pertinent clinical information, including history, physical exam and plan: Yes <Ally Gayle - Last Filed: 07/02/17 15:13> Past Medical History Reviewed: Historical Data, Nursing Documentation, Vital Signs - Medical History PMH: CHF (?), Fractures (vertebral compression; rib ), HTN, Osteoporosis Denies: Arthritis, COPD, HIV, Hypercholesterolemia, Hypothyroidism, Chronic Kidney Disease, Rheumatoid Arthritis - Family History Family History: States: Unknown Family Hx - Living Arrangements Living Arrangements: Other (teaching aide comes daily) - Immunization History Hx Tetanus Toxoid Vaccination: Yes (4 years ago while she was in [place]) <Dora Ledezma - Last Filed: 07/01/17 19:53> <Ally Gayle - Last Filed: 07/02/17 15:13> Vital Signs: Last Vital Signs Temp 98.2 F 07/02/17 12:15 Pulse 97 H 07/02/17 12:15 Resp 18 07/02/17 12:15 BP 90/60 L 07/02/17 12:15 Pulse Ox 98 07/02/17 12:15 - Home Medications Home Medications: Ambulatory Orders Medication Instructions Recorded Alendronate Sodium [Binosto] 70 mg PO DAILY 07/01/17 Aspirin [Aspirin Chewable] 81 mg PO DAILY 07/01/17 Calcium Carbonate/Vitamin D3 1 tab PO DAILY 07/01/17 [Os-Rajeev 500-Vit D3 200 Caplet] Isosorbide Mononitrate ER [Imdur 30 mg PO DAILY 07/01/17 ER] Losartan [Cozaar] 50 mg PO DAILY 07/01/17 Metoprolol Tartrate [Lopressor] 25 mg PO DAILY 07/01/17 - Allergies Allergies/Adverse Reactions: Allergies Allergy/AdvReac Type Severity Reaction Status Date / Time No Known Allergies Allergy Verified 11/06/16 12:32 Review of Systems ROS Statement: Except As Marked, All Systems Reviewed And Found Negative Constitutional: Negative for: Fever, Chills Cardiovascular: Positive for: Chest Pain (None current, but over the last week ) Respiratory: Positive for: Shortness of Breath Musculoskeletal: Positive for: Back Pain, Other (Rib pain from previous fracture and fall ) Skin: Positive for: Other (right arm, right leg ) Psych: Negative for: Withdrawal <Doar Ledezma - Last Filed: 07/01/17 19:53> Physical Exam - Reviewed Nursing Documentation Reviewed: Yes Vital Signs Reviewed: Yes - Physical Exam Appears: Positive for: Well, Non-toxic, No Acute Distress Head Exam: Positive for: ATRAUMATIC, NORMAL INSPECTION, NORMOCEPHALIC Skin: Positive for: Warm. Negative for: Normal Color (Healing abrasion on right upper arm and right lower anterior leg, (+) abrasion on right lower anterior leg which scab removed while removing dressing and mild bleeding ) Eye Exam: Positive for: Normal appearance ENT: Positive for: Normal ENT Inspection Neck: Positive for: Normal, Painless ROM Cardiovascular/Chest: Negative for: Regular Rate, Rhythm (Tachycardi ) Respiratory: Positive for: Accessory Muscle Use, Crackles, Respiratory Distress. Negative for: Normal Breath Sounds Gastrointestinal/Abdominal: Positive for: Normal Exam, Bowel Sounds. Negative for: Tenderness Back: Positive for: Normal Inspection Extremity: Positive for: Normal ROM Neurologic/Psych: Positive for: Alert, Oriented <Dora Ledezma - Last Filed: 07/01/17 19:53> - Laboratory Results Result Diagrams: 07/01/17 16:06 07/01/17 15:20 - ECG O2 Sat by Pulse Oximetry: 98 <Dora Ledezma - Last Filed: 07/01/17 19:53> - Laboratory Results Result Diagrams: 07/01/17 16:06 07/01/17 15:20 - Critical Care Total Time (In Min): 45 Documented Critical Care: Time excludes all time spent performint seperately billable procedures <Ally Gayle - Last Filed: 07/02/17 15:13> Medical Decision Making <Dora Ledezma - Last Filed: 07/01/17 19:53> <Ally Gayle - Last Filed: 07/02/17 15:13> Medical Decision Making: PT seen and examined by Dr. Gayle. Pt endorsed pending CT scan of the chest. (Dora Ledezma) Reevaluations at 2h and 4h post arrival, patient appears much more comfortable and less dyspneic with improved lung sounds Accession No. : [id number] Patient Name / ID : GLENN TAVAREZ / [id number] Exam Date : 07/01/2017 18:57:30 ( Approved ) Study Comment : Sex / Age : F / 86Y Creator : Nany Perez MD Dictator : Business Editor : Communications Electrician Supervisor : Nany Perez MD Approver2 : Report Date : 07/01/2017 20:32:00 My Comment : [facility] Division of Radiology [address] [place] [address] Tel. no. Patient Name: CORBY ELIZABETH Pt. Address: [address] [place] [address] Rec #: [id number] [place] [id number] Ordering Dr: Irwin NIEVES, Ally Landeros Pt HOME Order Location: [facility] : 1930 Female Age: 86 Order #: [id number] Reason for exam: sob CT Scan ANGIO CHEST PE PROTOCOL Exam Date: 07/01/17 This imaging exam was performed at [facility] EXAM: CT Angiography Chest With Intravenous Contrast CLINICAL HISTORY: 86 years old, female; Signs and symptoms; Other: SOB TECHNIQUE: Axial computed tomographic angiography images of the chest with intravenous contrast using pulmonary embolism protocol. All CT scans at this facility use one or more dose reduction techniques, viz.: automated exposure control; ma/kV adjustment per patient size (including targeted exams where dose is matched to indication; i.e. head); or iterative reconstruction technique. MIP reconstructed images were created and reviewed. Coronal and sagittal reformatted images were created and reviewed. CONTRAST: 80 mL of visipaque administered intravenously. COMPARISON: CT - ANGIO CHEST PE PROTOCOL 2016-12-26 20:35 FINDINGS: Pulmonary arteries: No acute abnormality as visualized. No pulmonary embolism. Aorta: Atherosclerosis. Tortuous aorta. No thoracic aortic aneurysm. Lungs: Mild bronchiectasis and peribronchial cuffing. Hyperinflated lung vargas. Apical scarring. Atelectasis/scarring at the lung bases. Pleural space: Trace left effusion. No pneumothorax. Heart: Cardiomegaly. No significant pericardial effusion. Bones: Exaggerated thoracic kyphosis. Severe compression deformities at T5- T9 and T12. Moderate compression deformity at L1. Mild height loss involving remainder of vertebral bodies. Correlate for osteoporosis. Lymph nodes: No enlarged lymph nodes. IMPRESSION: Mild bronchiectasis and peribronchial cuffing. Hyperinflated lung vargas. Apical scarring. Atelectasis/scarring at the lung bases. Trace left effusion. No evidence of pulmonary embolism. Cardiomegaly. Atherosclerosis. Compression fractures as above. Dictated By: Nany Perez MD Dictated Date/Time: 07/01/172031 Signed By: Nany Perez Date Signed: 2031 Transcribed By: KAVIN Transcribe Date/Time : 07/01/172031 DAVID/SHIRAZ Pt to be hospitalized for mild CHF, bronchitis, dyspnea. Episode of hypotension in ER, improved with small fluid bolus 250cc. (Ally Gayle) Disposition - Patient ED Disposition Is Patient to be Admitted: Transfer of Care - Disposition Disposition: Transfer of Care Disposition Time: 19:56 <Dora Ledezma - Last Filed: 07/01/17 19:53> - Patient ED Disposition Is Patient to be Admitted: Yes Counseled Patient/Family Regarding: Studies Performed, Diagnosis - Pt Status Changed To: Hospital Disposition Of: Inpatient - Admit Certification Admit to Inpatient:: After my assessment, the patient will require hospitalization for at least two midnights. This is because of the severity of symptoms shown, intensity of services needed, and/or the medical risk in this patient being treated as an outpatient. - POA Present On Arrival: Falls Or Trauma (at home per family) <Ally Gayle - Last Filed: 07/02/17 15:13> - Clinical Impression Clinical Impression: Shortness of breath, Dyspnea, Bronchitis, Acute exacerbation of CHF ( congestive heart failure) - Disposition Condition: GUARDED
[2017-07-01 16:24] LABS: BASO % 0.2 % (0.0-2.0); EOS % 0.7 % (0.0-4.0); HEMOGLOBIN 9.8 g/dL (12.0-16.0); LYMPH # 0.8 K/uL (1.0-4.3); LYMPH % 15.8 % (20.0-40.0); MEAN CELL VOLUME 99.6 fl (81.0-99.0); MEAN CORPUSCULAR HEMOGLOBIN 33.4 pg (27.0-31.0); MEAN CORPUSCULAR HGB CONC 33.6 g/dL (33.0-37.0); MEAN PLATELET VOLUME 7.7 fl (7.2-11.7); MONO # 0.2 K/uL (0.0-0.8); MONO % 5.2 % (0.0-10.0); NEUT # 3.7 K/uL (1.8-7.0); NEUT % 78.1 % (50.0-75.0); NRBC % 0.3 % (0.0-0.0); RBC 2.94 Mil/uL (3.80-5.20); RED CELL DISTRIBUTION WIDTH 18.5 % (11.5-14.5); WHITE BLOOD COUNT 4.8 K/uL (4.8-10.8)
[2017-07-01] MEDS ORDERED: Piperacillin/Tazobact 3.375 GM in Sodium Chloride 0.9% 100 ML IV STA (16:50)
[2017-07-01] MEDS ORDERED: levoFLOXacin 500 mg in D5W 500 MG/100 ML BAG IVPB STA (16:52)
[2017-07-01 17:24] LABS: INR 1.2 (0.9-1.2); PARTIAL THROMBOPLASTIN TIME 31.5 Seconds (25.6-37.1); PROTHROMBIN TIME 12.9 Seconds (9.8-13.1)
[2017-07-01] MEDS ORDERED: Piperacillin/Tazobact 3.375 gm Inj IVPB ONE (17:54)
[2017-07-01] MEDS ORDERED: levoFLOXacin 500 mg in D5W 500 MG/100 ML BAG IVPB ONE (17:54)
[2017-07-01 18:10] LABS: B-TYPE NATRIURETIC PEPTIDE 932 pg/ml (0-900)
[2017-07-01 18:13] LABS: BLOOD UREA NITROGEN 11 mg/dl (7-17); GFR AFRICAN-AMERICAN > 60; GFR NON-AFRICAN AMERICAN > 60
[2017-07-01 18:14] LABS: ALB/GLOB RATIO 0.7 (1.0-2.1); ALBUMIN 4.1 g/dL (3.5-5.0); ALT/SGPT 12 U/L (9-52); AST/SGOT 46 U/L (14-36); CALCIUM 9.8 mg/dL (8.4-10.2); MAGNESIUM 1.7 MG/DL (1.6-2.3)
[2017-07-01] MEDS ORDERED: Iodixanol 320 MG/ML 100 ML BOTTLE IV ONE (18:54)
[2017-07-01] MEDS ORDERED: Sodium Chloride 0.9% 50 ML IV ONE (18:54)
--- NOTE | 2017-07-01 20:32 | CT ---
EXAM: CT Angiography Chest With Intravenous Contrast CLINICAL HISTORY: 86 years old, female; Signs and symptoms; Other: SOB TECHNIQUE: Axial computed tomographic angiography images of the chest with intravenous contrast using pulmonary embolism protocol. All CT scans at this facility use one or more dose reduction techniques, viz.: automated exposure control; ma/kV adjustment per patient size (including targeted exams where dose is matched to indication; i.e. head); or iterative reconstruction technique. MIP reconstructed images were created and reviewed. Coronal and sagittal reformatted images were created and reviewed. CONTRAST: 80 mL of visipaque administered intravenously. COMPARISON: CT - ANGIO CHEST PE PROTOCOL 2016-12-26 20:35 FINDINGS: Pulmonary arteries: No acute abnormality as visualized. No pulmonary embolism. Aorta: Atherosclerosis. Tortuous aorta. No thoracic aortic aneurysm. Lungs: Mild bronchiectasis and peribronchial cuffing. Hyperinflated lung vargas. Apical scarring. Atelectasis/scarring at the lung bases. Pleural space: Trace left effusion. No pneumothorax. Heart: Cardiomegaly. No significant pericardial effusion. Bones: Exaggerated thoracic kyphosis. Severe compression deformities at T5-T9 and T12. Moderate compression deformity at L1. Mild height loss involving remainder of vertebral bodies. Correlate for osteoporosis. Lymph nodes: No enlarged lymph nodes. IMPRESSION: Mild bronchiectasis and peribronchial cuffing. Hyperinflated lung vargas. Apical scarring. Atelectasis/scarring at the lung bases. Trace left effusion. No evidence of pulmonary embolism. Cardiomegaly. Atherosclerosis. Compression fractures as above.
[2017-07-01] MEDS ORDERED: Sodium Chloride 0.9% 250 ML IV STA (21:22)
[2017-07-02] MEDS ORDERED: Influenza Vaccine 18yr & older 0.5 ML/45 MCG SYR IM ONE (06:00)
[2017-07-02] MEDS ORDERED: Pneumococcal 23-Valent Vaccine IM ONE (06:00)
[2017-07-02] MEDS ORDERED: Albuterol-Ipratrop 3 mg / 0.5 (3 ml) UD INH PRN ×2 (07:45→23:20)
[2017-07-02] MEDS ORDERED: ALENDRONATE 70 MG TAB PO SCH ×2 (08:00→23:20)
[2017-07-02] MEDS ORDERED: Enoxaparin 30 mg Syringe SC SCH (09:00)
[2017-07-02] MEDS ORDERED: Calcium-Vit D 500 mg-200 Units Tab UD PO SCH (09:00)
[2017-07-02] MEDS ORDERED: levoFLOXacin 500 MG TAB PO SCH (09:00)
[2017-07-02] MEDS ORDERED: Metoprolol Succinate 25 mg XL Tab PO SCH (09:45)
[2017-07-02] MEDS ORDERED: Oxycodone/Acetaminophen 5/325 mg Tab PO ONE (22:24)
--- NOTE | 2017-07-02 22:40 | CP.PCM.HP ---
History of Present Illness - History of Present Illness History of Present Illness: This is an 86 y/o female admitted for worsening of cough and SOB for the past few days. She has a hx of HTN and was noted to be in atrial fibrillation. Family claims that she started getting easily winded with light activity. Medical hx Atrial fibrillation HTN CHF Present on Admission - Present on Admission Any Indicators Present on Admission: No History of DVT/PE: No History of Uncontrolled Diabetes: No Urinary Catheter: No Decubitus Ulcer Present: No Review of Systems - Respiratory Respiratory: Cough, Dyspnea Past Patient History - Tetanus Immunizations Tetanus Immunization: Unknown - Past Medical History & Family History Past Medical History?: Yes - Past Social History Smoking Status: Never Smoked - CARDIAC Hx Cardiac Disorders: Yes - PULMONARY Hx Chronic Obstructive Pulmonary Disease (COPD): No - NEUROLOGICAL Hx Neurological Disorder: No HX Cerebrovascular Accident: No - HEENT Hx HEENT Problems: No - RENAL Hx Chronic Kidney Disease: No - ENDOCRINE/METABOLIC Hx Hypothyroidism: No - HEMATOLOGICAL/ONCOLOGICAL Hx Human Immunodeficiency Virus (HIV): No - INTEGUMENTARY Hx Dermatological Problems: No - MUSCULOSKELETAL/RHEUMATOLOGICAL Hx Musculoskeletal Disorders: Yes Hx Falls: Yes - GASTROINTESTINAL Hx Gastrointestinal Disorders: Yes Hx Constipation: Yes - GENITOURINARY/GYNECOLOGICAL Hx Genitourinary Disorders: No - PSYCHIATRIC Hx Psychophysiologic Disorder: No Hx Substance Use: No - SURGICAL HISTORY Hx Surgeries: No - ANESTHESIA Hx Anesthesia: Yes Hx Anesthesia Reactions: No Hx Malignant Hyperthermia: No Meds Allergies/Adverse Reactions: Allergies Allergy/AdvReac Type Severity Reaction Status Date / Time No Known Allergies Allergy Verified 11/06/16 12:32 Physical Exam - Head Exam Head Exam: NORMAL INSPECTION - Eye Exam Eye Exam: Normal appearance - ENT Exam ENT Exam: Mucous Membranes Moist - Respiratory Exam Respiratory Exam: Decreased Breath Sounds, Rales - Cardiovascular Exam Cardiovascular Exam: REGULAR RHYTHM - GI/Abdominal Exam GI & Abdominal Exam: Normal Bowel Sounds - Neurological Exam Neurological exam: CN II-XII Intact - Psychiatric Exam Psychiatric exam: Anxious Results - Vital Signs Recent Vital Signs: Last Vital Signs Temp 98.8 F 07/02/17 20:01 Pulse 108 H 07/02/17 20:01 Resp 18 07/02/17 20:01 BP 111/72 07/02/17 20:01 Pulse Ox 98 07/02/17 20:01 - Labs Result Diagrams: 07/07/17 05:50 07/07/17 05:50 Labs: Laboratory Results - last 24 hr 07/01/17 07/02/17 23:30 06:55 Troponin I 0.0250 0.0260 Assessment & Plan (1) Acute exacerbation of CHF (congestive heart failure) Status: Acute (2) Atrial fibrillation Status: Acute (3) Non-STEMI (non-ST elevated myocardial infarction) Status: Acute (4) Anemia Status: Acute - Assessment and Plan (Free Text) Plan: Start iv lasix Cardiology eval ICU oxygen troponin cont meds ECHO.
[2017-07-02] MEDS ORDERED: Metoprolol 1 mg/ml Inj IVP ONE ×2 (23:02)
[2017-07-02] MEDS ORDERED: Digoxin 500 mcg/2ml (0.5 mg/2ml) Inj ONE (23:08)
[2017-07-02] MEDS ORDERED: Sodium Chloride 0.9% 250 ML IV SCH (23:15)
[2017-07-02] MEDS ORDERED: Potassium Chloride 20 mEq ER Tab PO ONE (23:54)
--- NOTE | 2017-07-03 00:34 | PCM.RRT ---
<Nathaly Parekh - Last Filed: 07/03/17 00:27> CONSULTING SALES MANAGER Nurse Assessment - Situation Location: [address] [place] [address] Room Number: 401-1 CONSULTING SALES MANAGER Reason for Call: Tachycardia CONSULTING SALES MANAGER Called By: RN - IV IV Inserted during CONSULTING SALES MANAGER?: No IV Fluids Initiated During CONSULTING SALES MANAGER?: IV fluid 0.9 NS 250ml bolus - Respiratory Oxygen Delivery Method: Nasal Cannula Received Nebulizer Treatments: No Was the Patient Ventilated with Bag/Mask 100% O2?: No Secretions Suctioned?: (N/A) Was the Patient Intubated?: No Was the Patient Placed on a Ventilator?: No - Medication Medications Administered During CONSULTING SALES MANAGER: 1) Lopressor 2.5mg IV x 1. 2) Digoxin 0.25mg IV x 1 - Diagnostic Test Ordered EKG: Yes (Showed Afib with RVR) Chest X-Ray: No CT Scan: No Other Diagnostic Test Ordered: NO CPR started during CONSULTING SALES MANAGER?: No - Vital Signs Vital Signs: Rapid Response Vital Sign Blood Pressure 91/56 Pulse Rate 190 Respiratory Rate 12 Temperature 98.6 F Oxygen Saturation 99 - Time CONSULTING SALES MANAGER Ended Time CONSULTING SALES MANAGER Ended: 23:12 - Vital Signs at end of CONSULTING SALES MANAGER Vital Signs at end of CONSULTING SALES MANAGER: Rapid Response End Vital Sign Blood Pressure 107/67 Pulse Rate 133 Respiratory Rate 12 Temperature 98.5 F O2 Sat by Pulse Oximetry 98 - Recommendations CONSULTING SALES MANAGER Level of Care Recommendations: Transfer to ICU I.Reason for CONSULTING SALES MANAGER - A) Acute Change in Patient: Subjective: CONSULTING SALES MANAGER was called by nurse for a 86 y/o F with PMHx of HTN, CHF?, osteoporosis because elevated heart rate ( 180s-190),and hypotension. Patient was admitted for worsening cough and SOB, and mild CHF exacerbation, bronchitis, and dyspnea. Patient was alert, awake, and oriented X 3 on arrival. Denies chest pain. VS: HR: 185, BP: 90/53, oxygen sat on NC 99 %, RR: 20 - Neurological Status (Select all that apply): Alert, Oriented, Verbal, Follows Commands - Respiratory Oxygen Delivery Method: Nasal Cannula @L/min - Constitutional Appears: Non-toxic, No Acute Distress - Eyes Eye Exam: Normal appearance - Respiratory Exam Respiratory Exam: Rales (lung bases bilateral), NORMAL BREATHING PATTERN. absent: Rhonchi, Wheezes - Cardiovascular Exam Cardiovascular Exam: Tachycardia, Irregular Rhythm, +S1, +S2 - GI/Abdominal Exam GI & Abdominal Exam: Soft, Normal Bowel Sounds. absent: Distended, Guarding, Rigid, Tenderness - Neurological Exam Neurological Exam: Alert, Awake, Oriented x3 - Extremities Exam Extremities Exam: Normal Inspection. absent: Calf Tenderness, Pedal Edema Plan - Assessment of Findings&Treatment Plan 86 y/o F with new onset A fib with RVR and hypotension Plan: EKG stat showed A fib with RVR NS 250 ml bolus once Metoprolol 2.5 mg IV once Digoxin 0.25 mg IV once Hold lasix, isosorbide mono, losartan 50 mg for now because hypotension TRansfer to ICU for close monitoring c/w Dr. Fernandez CONSULTING SALES MANAGER leader : Dr. Fernandez <Asim Avelar - Last Filed: 07/09/17 14:48> CONSULTING SALES MANAGER Nurse Assessment - Vital Signs Vital Signs: Rapid Response Vital Sign Blood Pressure 91/56 Pulse Rate 190 Respiratory Rate 12 Temperature 98.6 F Oxygen Saturation 99 - Vital Signs at end of CONSULTING SALES MANAGER Vital Signs at end of CONSULTING SALES MANAGER: Rapid Response End Vital Sign Blood Pressure 107/67 Pulse Rate 133 Respiratory Rate 12 Temperature 98.5 F O2 Sat by Pulse Oximetry 98
--- NOTE | 2017-07-03 01:20 | CP.PCM.CON ---
History of Present Illness - History of Present Illness History of Present Illness: CC/Reason for ICU: A fib with RVR and hypotension Brief HPI: This is an 86 y/o F with MHx of HTN and possibly CHF (though not clearly documented) who was admitted for SOB, and is being treated for respiratory infection and vol overload. This evening an [employer] was called as patient was in A fib with RVR with low BP. Patient herself without any complaints. Phys Ex: Gen: NAD, frail CV: Irregularly irregular, tachycardic Pulm: ?crackles and occasional rhonchi b/l Abd: NT/ND +BS Ext: No c/c/e Neuro: a/o x 3, no deficits EKG: A fib with RVR to 160-180s A/P: 86 y/o female with what appears to be new A fib in setting of ?CHF and ? CAP. -Will move to ICU given low BP with A fib RVR -Patient given small bolus of IVF -Metoprolol 2.5 mg IV x 1 -Dig 0.25 mg IV x 1 -Replete K -Check trops, TSH -Echo in AM -Cardiology consult per primary Critical care time spent: 60 min Past Patient History - Tetanus Immunizations Tetanus Immunization: Unknown - Past Medical History & Family History Past Medical History?: Yes - Past Social History Smoking Status: Never Smoked - CARDIAC Hx Cardiac Disorders: Yes - PULMONARY Hx Chronic Obstructive Pulmonary Disease (COPD): No - NEUROLOGICAL Hx Neurological Disorder: No HX Cerebrovascular Accident: No - HEENT Hx HEENT Problems: No - RENAL Hx Chronic Kidney Disease: No - ENDOCRINE/METABOLIC Hx Hypothyroidism: No - HEMATOLOGICAL/ONCOLOGICAL Hx Human Immunodeficiency Virus (HIV): No - INTEGUMENTARY Hx Dermatological Problems: No - MUSCULOSKELETAL/RHEUMATOLOGICAL Hx Musculoskeletal Disorders: Yes Hx Falls: Yes - GASTROINTESTINAL Hx Gastrointestinal Disorders: Yes Hx Constipation: Yes - GENITOURINARY/GYNECOLOGICAL Hx Genitourinary Disorders: No - PSYCHIATRIC Hx Psychophysiologic Disorder: No Hx Substance Use: No - SURGICAL HISTORY Hx Surgeries: No - ANESTHESIA Hx Anesthesia: Yes Hx Anesthesia Reactions: No Hx Malignant Hyperthermia: No Meds Allergies/Adverse Reactions: Allergies Allergy/AdvReac Type Severity Reaction Status Date / Time No Known Allergies Allergy Verified 11/06/16 12:32 - Medications Medications: Current Medications Albuterol/Ipratropium (Duoneb 3 Mg/0.5 Mg (3 Ml) Ud) 3 ml INH RQID PRN PRN Reason: Shortness of Breath Alendronate Sodium (Fosamax) 70 mg PO QWK [facility] Aspirin (Aspirin Chewable) 81 mg PO DAILY [facility] Calcium/Vitamin D (Oyster Shell Calcium/Vitamin D 500 Mg-200 Iu) 1 tab PO DAILY [facility] Digoxin (Lanoxin) 0.25 mg IVP ONCE ONE Stop: 07/03/17 23:07 Enoxaparin Sodium (Lovenox) 30 mg SC DAILY [facility] PRN Reason: Protocol Potassium Chloride (Potassium Cl 10meq/50ml Sterile Water) 50 mls @ 50 mls/hr IVPB Q1 [facility] Stop: 07/03/17 05:59 Isosorbide Mononitrate (Imdur Er) 30 mg PO DAILY [facility] Levofloxacin (Levaquin) 500 mg PO DAILY [facility] PRN Reason: Protocol Losartan Potassium (Cozaar) 50 mg PO DAILY [facility] Metoprolol Succinate (Toprol Xl) 25 mg PO DAILY [facility] Ondansetron HCl (Zofran Inj) 4 mg IVP Q6 PRN PRN Reason: Nausea/Vomiting Results - Vital Signs Recent Vital Signs: Last Vital Signs Temp 98.4 F 07/02/17 23:15 Pulse 156 H 07/02/17 23:15 Resp 16 07/02/17 23:15 BP 88/59 L 07/02/17 23:15 Pulse Ox 98 07/02/17 20:01 - Labs Result Diagrams: 07/01/17 16:06 07/01/17 15:20 Labs: Laboratory Results - last 24 hr 07/02/17 06:55 Troponin I 0.0260
[2017-07-03] MEDS ORDERED: Potassium CL 10 MEQ/50 ML 50 ML IVPB SCH (02:00)
[2017-07-03] MEDS ORDERED: Potassium Chloride 40 MEQ in Sodium Chloride 0.9% 500 ML IV SCH (02:00)
[2017-07-03 05:31] LABS: HEMOGLOBIN 8.2 g/dL (12.0-16.0); MEAN CELL VOLUME 101.8 fl (81.0-99.0); MEAN CORPUSCULAR HEMOGLOBIN 33.8 pg (27.0-31.0); MEAN CORPUSCULAR HGB CONC 33.2 g/dL (33.0-37.0); RBC 2.44 Mil/uL (3.80-5.20); RED CELL DISTRIBUTION WIDTH 18.6 % (11.5-14.5); WHITE BLOOD COUNT 5.9 K/uL (4.8-10.8)
[2017-07-03 05:46] LABS: CALCIUM 9.3 mg/dL (8.4-10.2)
[2017-07-03 05:49] LABS: TROPONIN I 0.119 ng/mL (0.00-0.120)
[2017-07-03] MEDS ORDERED: Metoprolol Succinate 25 mg XL Tab PO SCH (09:00)
[2017-07-03] MEDS ORDERED: Potassium Chloride 20 mEq ER Tab PO ONE ×2 (09:00)
[2017-07-03] MEDS: levoFLOXacin 500 MG TAB PO SCH (09:08)
[2017-07-03] MEDS: Enoxaparin 30 mg Syringe SC SCH (09:08)
[2017-07-03] MEDS: Calcium-Vit D 500 mg-200 Units Tab UD PO SCH (09:09)
[2017-07-03 11:00] LABS: ALB/GLOB RATIO 0.6 (1.0-2.1); ALBUMIN 3.4 g/dL (3.5-5.0); ALT/SGPT 20 U/L (9-52); AST/SGOT 36 U/L (14-36); BLOOD UREA NITROGEN 26 mg/dl (7-17); CALCIUM 9.5 mg/dL (8.4-10.2); GFR AFRICAN-AMERICAN > 60; GFR NON-AFRICAN AMERICAN > 60; MAGNESIUM 2.1 MG/DL (1.6-2.3)
[2017-07-03] MEDS ORDERED: Metoprolol Succinate 25 mg XL Tab PO ONE (11:31)
--- NOTE | 2017-07-03 12:19 | CP.CCUPN ---
CCU Subjective - Physician Review Subjective (Free Text): 86 y/o female with pmx of chronic diastolic heart failure, pulmonary HTN, moderate to severe mitral regurgitation resulting in enlargement of left atrium. Patient admitted to ICU for A-fib/flutter. 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 Patient's RVR resolved. Patient seen at bedside. Patient c/o palpitations denies any chest pain. Patient sleeping comfortably on telemetry rate controlled. 07/03/17 11:58 CCU Objective - Vital Signs / Intake & Output Vital Signs (Last 4 hours): Vital Signs Temp Pulse Resp BP Pulse Ox 07/03/17 11:39 74 117/73 07/03/17 10:00 99 H 21 94/59 L 100 07/03/17 09:43 153 H 111/59 L 99 07/03/17 09:09 142 H 115/80 07/03/17 08:00 98.9 F 84 10 L 88/53 L 100 Intake and Output (Last 8hrs): Intake & Output 07/02/17 07/03/17 07/03/17 22:59 06:59 14:59 Intake Total 1210 520 620 Output Total 200 200 Balance 1010 320 620 Weight 72 lb 9 oz Intake: IV 520 500 Oral 1200 120 Free Water Flush 10 Output: Urine 200 200 Urethral (Alvarado) 200 200 - Physical Exam Physical Exam Limitations: Negative for: Altered Mental Status Head: Positive for: Normocephalic Pupils: Positive for: PERRL Neck: Positive for: Normal Range of Motion, JVD Respiratory/Chest: Positive for: Rales Cardiovascular: Positive for: Murmurs, Normal S1, S2, Irregular Rhythm. Negative for: Regular Rate and Rhythm Abdomen: Positive for: Tenderness, Normal Bowel Sounds Upper Extremity: Positive for: Normal Inspection Lower Extremity: Positive for: Normal Inspection, Other (atrophy) - Medications Active Medications: Active Medications Generic Name Dose Route Start Last Admin Trade Name Freq PRN Reason Stop Dose Admin Alendronate Sodium 70 mg 07/02/17 23:20 Fosamax PO QWK [facility] Aspirin 81 mg 07/03/17 09:00 07/03/17 09:08 Aspirin Chewable PO 81 mg DAILY [facility] Administration Calcium/Vitamin D 1 tab 07/03/17 09:00 07/03/17 09:09 Oyster Shell Calcium/Vitamin D 500 Mg-200 Iu PO 1 tab DAILY [facility] Administration Digoxin 0.25 mg 07/03/17 23:06 Lanoxin IVP 07/03/17 23:07 ONCE ONE Enoxaparin Sodium 30 mg 07/03/17 09:00 07/03/17 09:08 Lovenox SC 30 mg DAILY J[facility] Administration Protocol Diltiazem HCl 100 mg/ Sodium 100 mls @ 5 mls/hr 07/03/17 09:45 07/03/17 10:00 Chloride IV 07/04/17 05:44 0 mg/hr .Q20H ONE 0 mls/hr Protocol Titration 5 MG/HR Isosorbide Mononitrate 30 mg 07/03/17 09:00 Imdur Er PO DAILY [facility] Levofloxacin 500 mg 07/03/17 09:00 07/03/17 09:08 Levaquin PO 500 mg DAILY [facility] Administration Protocol Metoprolol Succinate 50 mg 07/04/17 09:00 Toprol Xl PO DAILY [facility] Ondansetron HCl 4 mg 07/03/17 01:04 Zofran Inj IVP Q6 PRN Nausea/Vomiting - Patient Studies Lab Studies: Microbiology Studies 07/01/17 15:30 Blood Culture - Preliminary Blood NO GROWTH AFTER 24 HOURS 07/01/17 15:50 Blood Culture - Preliminary Blood NO GROWTH AFTER 24 HOURS Lab Studies 07/03/17 07/03/17 07/03/17 Range/Units 11:16 10:38 04:35 WBC 5.9 (4.8-10.8) K/uL RBC 2.44 L (3.80-5.20) Mil/uL Hgb 8.2 L (12.0-16.0) g/dL Hct 24.8 L (34.0-47.0) % MCV 101.8 H D (81.0-99.0) fl MCH 33.8 H (27.0-31.0) pg MCHC 33.2 (33.0-37.0) g/dL RDW 18.6 H (11.5-14.5) % Plt Count 185 (130-400) K/uL Sodium 145 (132-148) mmol/l Potassium 4.9 (3.6-5.0) MMOL/L Chloride 101 (98-107) mmol/L Carbon Dioxide 33 H (22-30) mmol/L Anion Gap 16 (10-20) BUN 26 H (7-17) mg/dl Creatinine 0.8 (0.7-1.2) mg/dl Est GFR ( Amer) > 60 Est GFR (Non-Af Amer) > 60 Random Glucose 127 H (65-105) mg/dL Calcium 9.5 (8.4-10.2) mg/dL Phosphorus 3.4 (2.5-4.5) mg/dl Magnesium 2.1 (1.6-2.3) MG/DL Total Bilirubin 0.5 (0.2-1.3) mg/dl AST 36 D (14-36) U/L ALT 20 (9-52) U/L Alkaline Phosphatase 86 (38-126) U/L Troponin I 0.1800 H* (0.00-0.120) ng/mL Total Protein 8.9 H (6.3-8.2) G/DL Albumin 3.4 L (3.5-5.0) g/dL Globulin 5.5 H (2.2-3.9) gm/dL Albumin/Globulin Ratio 0.6 L (1.0-2.1) TSH 3rd Generation (0.46-4.68) mIU/ML 07/03/17 Range/Units 04:35 WBC (4.8-10.8) K/uL RBC (3.80-5.20) Mil/uL Hgb (12.0-16.0) g/dL Hct (34.0-47.0) % MCV (81.0-99.0) fl MCH (27.0-31.0) pg MCHC (33.0-37.0) g/dL RDW (11.5-14.5) % Plt Count (130-400) K/uL Sodium 143 (132-148) mmol/l Potassium 6.0 H (3.6-5.0) MMOL/L Chloride 100 (98-107) mmol/L Carbon Dioxide 33 H (22-30) mmol/L Anion Gap 16 (10-20) BUN 29 H (7-17) mg/dl Creatinine 1.1 (0.7-1.2) mg/dl Est GFR ( Amer) 57 Est GFR (Non-Af Amer) 47 Random Glucose 117 H (65-105) mg/dL Calcium 9.3 (8.4-10.2) mg/dL Phosphorus (2.5-4.5) mg/dl Magnesium (1.6-2.3) MG/DL Total Bilirubin (0.2-1.3) mg/dl AST (14-36) U/L ALT (9-52) U/L Alkaline Phosphatase (38-126) U/L Troponin I 0.1190 (0.00-0.120) ng/mL Total Protein (6.3-8.2) G/DL Albumin (3.5-5.0) g/dL Globulin (2.2-3.9) gm/dL Albumin/Globulin Ratio (1.0-2.1) TSH 3rd Generation 1.19 (0.46-4.68) mIU/ML Laboratory Results - last 24 hr 07/03/17 07/03/17 07/03/17 04:35 04:35 10:38 WBC 5.9 RBC 2.44 L Hgb 8.2 L Hct 24.8 L MCV 101.8 H D MCH 33.8 H MCHC 33.2 RDW 18.6 H Plt Count 185 Sodium 143 145 Potassium 6.0 H 4.9 Chloride 100 101 Carbon Dioxide 33 H 33 H Anion Gap 16 16 BUN 29 H 26 H Creatinine 1.1 0.8 Est GFR ( Amer) 57 > 60 Est GFR (Non-Af Amer) 47 > 60 Random Glucose 117 H 127 H Calcium 9.3 9.5 Phosphorus 3.4 Magnesium 2.1 Total Bilirubin 0.5 AST 36 D ALT 20 Alkaline Phosphatase 86 Troponin I 0.1190 Total Protein 8.9 H Albumin 3.4 L Globulin 5.5 H Albumin/Globulin Ratio 0.6 L TSH 3rd Generation 1.19 07/03/17 11:16 WBC RBC Hgb Hct MCV MCH MCHC RDW Plt Count Sodium Potassium Chloride Carbon Dioxide Anion Gap BUN Creatinine Est GFR ( Amer) Est GFR (Non-Af Amer) Random Glucose Calcium Phosphorus Magnesium Total Bilirubin AST ALT Alkaline Phosphatase Troponin I 0.1800 H* Total Protein Albumin Globulin Albumin/Globulin Ratio TSH 3rd Generation EKG/Cardiology Studies: Cardiology / EKG Studies 07/03/17 EKG [ELECTROCARDIOGRAM] Stat Comment: Mode Of Transportation: Reason For Exam: rapid heart rate Fingerstick Blood Sugar Results: 100 Critical Care Progress Note - Nutrition Nutrition: Nutrition Category Date Time Status Heart Healthy Diet [DIET] Diets 07/02/17 Breakfast Active Assessment/Plan - Assessment and Plan (Free Text) Plan: A-fib/flutter: new onset, 2nd valvular heart disease (mitral regurgitation) resulting in left atrial enlargement, pulmonary congestion and pulmonary HTN, start AV samina dory cardioselective, no wheezing, (+)rales, (+)JVD), obtain cardiology input, CHADscore >2, risks/benefits of AC to be discussed with patient -at risk of CAD: ACS (+): consider oral asa, palvix, av samina dory and statin , given age trop (+) -anemia: check iron profile, folate and B12 level, fecal occult blood, continue to monito, obtain active type and screen -Chronic Co2 retention with pulmonary HTN: obtain PFT suspect restrictive lung disease with possible obstructive pattern, pulmonary follow up, keep spo2 >92 -continue dvt/pud ppx -continue to monitor - Date & Time Date: 07/03/17 Time: 12:29
--- NOTE | 2017-07-03 15:25 | CARD ---
APPROVED REPORT EXAM: Two-dimensional and M-mode echocardiogram with Doppler and color Doppler. Other Information Quality : LimitedRhythm : NSR INDICATION Abnormal EKG/Arrhythmia 2D DIMENSIONS LVEF (%)55.0 (>50%) Aortic Valve AI P 1/2 [id number] Mitral Valve MV E Iczzazei03.4cm/sMV DECEL [id number] A Xcefcesb52.1cm/s MV HRE60ggM/A ratio0.8MVA (PHT)4.16cm2 TDI Lateral E' Peak V7.09cm/sE/Lateral E'8.1E/Medial E'0.0 Tricuspid Valve TR Peak [id number] [id number] Peak Gr.24mmHg [id number] LEFT VENTRICLE The left ventricle is normal size. There is normal left ventricular wall thickness. The left ventricular function is normal. The left ventricular ejection fraction is within the normal range. There is normal LV segmental wall motion. Transmitral Doppler flow pattern is Grade I-abnormal relaxation pattern. RIGHT VENTRICLE The right ventricle is normal size. There is normal right ventricular wall thickness. The right ventricular systolic function is normal. ATRIA The left atrium is mildly dilated. The right atrium size is normal. AORTIC VALVE The aortic valve is mildly thickened. There is mild aortic regurgitation. There is no aortic valvular stenosis. MITRAL VALVE The mitral valve is mildly thickened. There is no mitral valve stenosis. Mitral regurgitation is mild. TRICUSPID VALVE The tricuspid valve is normal in structure. There is mild tricuspid regurgitation. There is mild pulmonary hypertension. PULMONIC VALVE The pulmonary valve is normal in structure. There is no pulmonic valvular regurgitation. GREAT VESSELS The aortic root is normal in size. The IVC was not visualized. PERICARDIAL EFFUSION The pericardium appears normal. <Conclusion> The left ventricle is normal size. There is normal left ventricular wall thickness. The left ventricular function is normal. The left ventricular ejection fraction is within the normal range. There is normal LV segmental wall motion. Transmitral Doppler flow pattern is Grade I-abnormal relaxation pattern. There is mild aortic regurgitation. Mitral regurgitation is mild. There is mild tricuspid regurgitation. There is mild pulmonary hypertension.
--- NOTE | 2017-07-03 16:43 | CARD ---
APPROVED REPORT EKG Measurement Heart [id number] <Conclusion> Atrial fibrillation with rapid ventricular response Moderate voltage criteria for LVH, may be normal variant Abnormal ECG
--- NOTE | 2017-07-03 16:48 | CARD ---
APPROVED REPORT EKG Measurement Heart [id number] <Conclusion> Atrial fibrillation with rapid ventricular response Minimal voltage criteria for LVH, may be normal variant ST & T wave abnormality, consider inferior ischemia ST & T wave abnormality, consider anterolateral ischemia Abnormal ECG
[2017-07-03] MEDS ORDERED: Digoxin 500 mcg/2ml (0.5 mg/2ml) Inj IVP ONE ×2 (23:06)
[2017-07-04 06:20] LABS: HEMOGLOBIN 6.8 g/dL (12.0-16.0); MEAN CELL VOLUME 104.4 fl (81.0-99.0); MEAN CORPUSCULAR HEMOGLOBIN 33.3 pg (27.0-31.0); MEAN CORPUSCULAR HGB CONC 31.9 g/dL (33.0-37.0); RBC 2.05 Mil/uL (3.80-5.20); RED CELL DISTRIBUTION WIDTH 18.9 % (11.5-14.5); WHITE BLOOD COUNT 3.5 K/uL (4.8-10.8)
[2017-07-04 06:30] LABS: BLOOD UREA NITROGEN 14 mg/dl (7-17); CALCIUM 7.6 mg/dL (8.4-10.2); GFR AFRICAN-AMERICAN > 60; GFR NON-AFRICAN AMERICAN > 60
[2017-07-04] MEDS: Enoxaparin 30 mg Syringe SC SCH (08:55)
[2017-07-04] MEDS: Metoprolol Succinate 50 mg XL Tab PO SCH (08:56)
[2017-07-04] MEDS: levoFLOXacin 500 MG TAB PO SCH ×2 (08:56→17:10)
[2017-07-04] MEDS: Calcium-Vit D 500 mg-200 Units Tab UD PO SCH (08:56)
[2017-07-04] MEDS: diltiaZEM 180 mg/24 Hours CD Cap PO SCH (11:25)
[2017-07-04] MEDS ORDERED: Metoprolol Succinate 25 mg XL Tab PO ONE (11:27)
--- NOTE | 2017-07-04 13:13 | CP.PCM.PN ---
<Miranda Beatty - Last Filed: 07/04/17 14:22> Subjective - Date & Time of Evaluation Date of Evaluation: 07/04/17 Time of Evaluation: 10:30 - Subjective Subjective: Patient seen and examined at bedside with attending- Dr. Avelar. Alert and Awake , cooperative with exam. Appears cachectic and chronically ill. On supplemental O2 via nasal cannula. Objective - Vital Signs/Intake and Output Vital Signs (last 24 hours): Temp Pulse Resp BP Pulse Ox 98.4 F 14 L 14 139/76 99 07/04/17 12:00 07/04/17 12:00 07/04/17 12:00 07/04/17 12:00 07/04/17 12:00 Intake and Output: 07/04/17 07/04/17 06:59 18:59 Intake Total 50 130 Output Total 400 200 Balance -350 -70 - Medications Medications: Current Medications Acetaminophen (Tylenol 325mg Tab) 650 mg PO Q6 PRN PRN Reason: Pain, Mild (1-3) Last Admin: 07/04/17 12:22 Dose: 650 mg Alendronate Sodium (Fosamax) 70 mg PO QWK [facility] Aspirin (Aspirin Chewable) 81 mg PO DAILY [facility] Last Admin: 07/04/17 08:56 Dose: 81 mg Calcium/Vitamin D (Oyster Shell Calcium/Vitamin D 500 Mg-200 Iu) 1 tab PO DAILY [facility] Last Admin: 07/04/17 08:56 Dose: 1 tab Diltiazem HCl (Cardizem Cd) 180 mg PO DAILY [facility] Last Admin: 07/04/17 11:25 Dose: 180 mg Enoxaparin Sodium (Lovenox) 30 mg SC DAILY [facility] PRN Reason: Protocol Last Admin: 07/04/17 08:55 Dose: 30 mg Isosorbide Mononitrate (Imdur Er) 30 mg PO DAILY [facility] Levofloxacin (Levaquin) 500 mg PO DAILY [facility] PRN Reason: Protocol Last Admin: 07/04/17 08:56 Dose: 500 mg Metoprolol Succinate (Toprol Xl) 50 mg PO DAILY [facility] Last Admin: 07/04/17 08:56 Dose: 50 mg - Labs Labs: 07/04/17 06:13 07/04/17 06:13 PT 12.9 Seconds (9.8-13.1) 07/01/17 15:20 INR 1.2 (0.9-1.2) 07/01/17 15:20 APTT 31.5 Seconds (25.6-37.1) 07/01/17 15:20 - Constitutional Appears: Cachectic, Chronically Ill - Head Exam Head Exam: ATRAUMATIC, NORMOCEPHALIC - Eye Exam Eye Exam: EOMI - ENT Exam ENT Exam: Mucous Membranes Moist - Neck Exam Neck Exam: Full ROM - Respiratory Exam Respiratory Exam: Decreased Breath Sounds (diffuse), Rhonchi (diffuse) - Cardiovascular Exam Cardiovascular Exam: REGULAR RHYTHM Additional comments: abnormal heart sounds - GI/Abdominal Exam GI & Abdominal Exam: Soft, Normal Bowel Sounds. absent: Tenderness - Extremities Exam Extremities Exam: Full ROM. absent: Pedal Edema - Neurological Exam Neurological Exam: Alert, Awake - Psychiatric Exam Psychiatric exam: Flat Affect, Normal Mood - Skin Skin Exam: Dry, Warm Assessment and Plan - Assessment and Plan (Free Text) Assessment: 86 yr old F admitted for CHF exacerbation and acute bronchitis, [employer] called yesterday for acute onset A-fib with RVR and transferred to ICU. -continue medical management in ICU -cardiology consult appreciated: : will follow recommendations -was on cardizem drip at 5mg/hr; now Cardizem 180mg PO QD -supplemental O2 via nasal cannula to keep SpO2 > 92% -Levofloxacin 500mg PO QD <Asim Avelar - Last Filed: 07/09/17 14:42> Objective - Vital Signs/Intake and Output Vital Signs (last 24 hours): Temp Pulse Resp BP Pulse Ox 97.4 F L 71 23 156/82 H 89 L 07/09/17 13:30 07/09/17 13:30 07/09/17 13:30 07/09/17 13:36 07/09/17 13:30 - Medications Medications: Current Medications Acetaminophen (Tylenol 325mg Tab) 650 mg PO Q6 PRN PRN Reason: Pain, Mild (1-3) Last Admin: 07/08/17 17:53 Dose: 650 mg Alendronate Sodium (Fosamax) 70 mg PO QWK [facility] Amiodarone HCl (Cordarone) 200 mg PO DAILY [facility] Last Admin: 07/09/17 08:01 Dose: 200 mg Aspirin (Aspirin Chewable) 81 mg PO DAILY [facility] Last Admin: 07/09/17 08:00 Dose: 81 mg Calcium/Vitamin D (Oyster Shell Calcium/Vitamin D 500 Mg-200 Iu) 1 tab PO DAILY [facility] Last Admin: 07/09/17 08:02 Dose: 1 tab Diltiazem HCl (Cardizem Cd) 180 mg PO DAILY [facility] Last Admin: 07/09/17 08:00 Dose: 180 mg Docusate Sodium (Colace) 100 mg PO BID [facility] Last Admin: 07/09/17 08:01 Dose: 100 mg Enoxaparin Sodium (Lovenox) 40 mg SC DAILY [facility] PRN Reason: Protocol Last Admin: 07/09/17 07:59 Dose: 40 mg Ferrous Sulfate (Feosol Liq) 300 mg PO TID [facility] Last Admin: 07/09/17 12:29 Dose: 300 mg Furosemide (Lasix) 20 mg IVP STAT STA Stop: 07/09/17 14:37 Nitroglycerin/Dextrose (Nitroglycerin 50 Mg/250 Ml D5w) 50 mg in 250 mls @ 3 mls/hr IV .Q24H ONE; 10 MCG/MIN PRN Reason: Protocol Stop: 07/10/17 14:38 Isosorbide Mononitrate (Imdur Er) 30 mg PO DAILY [facility] Levofloxacin (Levaquin) 500 mg PO DAILY@1700 [facility] PRN Reason: Protocol Last Admin: 07/08/17 17:07 Dose: 500 mg Lidocaine (Lidoderm) 1 ea TD DAILY [facility] Last Admin: 07/09/17 07:59 Dose: 1 ea Megestrol Acetate (Megace) 400 mg PO DAILY [facility] Last Admin: 07/09/17 08:02 Dose: 400 mg Metoprolol Succinate (Toprol Xl) 50 mg PO DAILY [facility] Last Admin: 07/09/17 08:02 Dose: 50 mg Tramadol HCl (Ultram) 50 mg PO DAILY PRN PRN Reason: Pain, severe (8-10) - Labs Labs: 07/07/17 05:50 07/07/17 05:50 PT 12.9 Seconds (9.8-13.1) 07/01/17 15:20 INR 1.2 (0.9-1.2) 07/01/17 15:20 APTT 31.5 Seconds (25.6-37.1) 07/01/17 15:20 Assessment and Plan (1) Acute exacerbation of CHF (congestive heart failure) Status: Acute (2) Atrial fibrillation Status: Acute (3) Non-STEMI (non-ST elevated myocardial infarction) Status: Acute (4) Anemia Status: Acute - Assessment and Plan (Free Text) Plan: I was present during evaluation and discussed with Dr Beatty re plans of care and mgt. Asim Avelar M.D.
--- NOTE | 2017-07-04 16:16 | CP.PCM.CON ---
History of Present Illness - History of Present Illness History of Present Illness: I was asked to see patient by Dr Avelar. Patient is a 86 year old female with PMH HTN, hypercholesterolemia, who initially presented with cough and dyspnea. She was found to be in atrial fibrillation with RVR. She was transferred to ICU. Cardizem was given. The patient is now in sinus rhythm. Review of Systems - Review of Systems Systems not reviewed;Unavailable: Dementia Past Patient History - Tetanus Immunizations Tetanus Immunization: Unknown - Past Medical History & Family History Past Medical History?: Yes - Past Social History Smoking Status: Never Smoked - CARDIAC Hx Cardiac Disorders: Yes - PULMONARY Hx Chronic Obstructive Pulmonary Disease (COPD): No - NEUROLOGICAL Hx Neurological Disorder: No HX Cerebrovascular Accident: No - HEENT Hx HEENT Problems: No - RENAL Hx Chronic Kidney Disease: No - ENDOCRINE/METABOLIC Hx Hypothyroidism: No - HEMATOLOGICAL/ONCOLOGICAL Hx Human Immunodeficiency Virus (HIV): No - INTEGUMENTARY Hx Dermatological Problems: No - MUSCULOSKELETAL/RHEUMATOLOGICAL Hx Musculoskeletal Disorders: Yes Hx Falls: Yes - GASTROINTESTINAL Hx Gastrointestinal Disorders: Yes Hx Constipation: Yes - GENITOURINARY/GYNECOLOGICAL Hx Genitourinary Disorders: No - PSYCHIATRIC Hx Psychophysiologic Disorder: No Hx Substance Use: No - SURGICAL HISTORY Hx Surgeries: No - ANESTHESIA Hx Anesthesia: Yes Hx Anesthesia Reactions: No Hx Malignant Hyperthermia: No Meds Allergies/Adverse Reactions: Allergies Allergy/AdvReac Type Severity Reaction Status Date / Time No Known Allergies Allergy Verified 11/06/16 12:32 - Medications Medications: Current Medications Acetaminophen (Tylenol 325mg Tab) 650 mg PO Q6 PRN PRN Reason: Pain, Mild (1-3) Last Admin: 07/04/17 12:22 Dose: 650 mg Alendronate Sodium (Fosamax) 70 mg PO QWK [facility] Aspirin (Aspirin Chewable) 81 mg PO DAILY [facility] Last Admin: 07/04/17 08:56 Dose: 81 mg Calcium/Vitamin D (Oyster Shell Calcium/Vitamin D 500 Mg-200 Iu) 1 tab PO DAILY [facility] Last Admin: 07/04/17 08:56 Dose: 1 tab Diltiazem HCl (Cardizem Cd) 180 mg PO DAILY [facility] Last Admin: 07/04/17 11:25 Dose: 180 mg Enoxaparin Sodium (Lovenox) 30 mg SC DAILY [facility] PRN Reason: Protocol Last Admin: 07/04/17 08:55 Dose: 30 mg Isosorbide Mononitrate (Imdur Er) 30 mg PO DAILY [facility] Levofloxacin (Levaquin) 500 mg PO DAILY@1700 [facility] PRN Reason: Protocol Metoprolol Succinate (Toprol Xl) 50 mg PO DAILY [facility] Last Admin: 07/04/17 08:56 Dose: 50 mg Physical Exam - Constitutional Appears: Non-toxic - Head Exam Head Exam: NORMAL INSPECTION - Eye Exam Eye Exam: Normal appearance - ENT Exam ENT Exam: Mucous Membranes Moist - Respiratory Exam Respiratory Exam: NORMAL BREATHING PATTERN - Cardiovascular Exam Cardiovascular Exam: REGULAR RHYTHM - GI/Abdominal Exam GI & Abdominal Exam: Normal Bowel Sounds - Rectal Exam Rectal Exam: Deferred - Extremities Exam Extremities exam: Negative for: pedal edema - Back Exam Back exam: NORMAL INSPECTION - Neurological Exam Neurological exam: Alert - Psychiatric Exam Psychiatric exam: Normal Affect - Skin Skin Exam: Normal Color Results - Vital Signs Recent Vital Signs: Last Vital Signs Temp 98.4 F 07/04/17 12:00 Pulse 14 L 07/04/17 12:00 Resp 22 07/04/17 14:00 BP 119/62 07/04/17 14:00 Pulse Ox 100 07/04/17 14:00 - Labs Result Diagrams: 07/04/17 06:13 07/04/17 06:13 Labs: Laboratory Results - last 24 hr 07/04/17 07/04/17 06:13 06:13 WBC 3.5 L RBC 2.05 L Hgb 6.8 L Hct 21.4 L MCV 104.4 H D MCH 33.3 H MCHC 31.9 L RDW 18.9 H Plt Count 147 Sodium 144 Potassium 3.7 Chloride 110 H Carbon Dioxide 25 Anion Gap 13 BUN 14 Creatinine 0.5 L Est GFR ( Amer) > 60 Est GFR (Non-Af Amer) > 60 Random Glucose 76 Calcium 7.6 L - EKG Data EKG Interpreted by: Myself Assessment & Plan (1) Atrial fibrillation Assessment and Plan: no documented history. LV function is normal by echocardiogram. currently in sinus rhythm. recommend repeat Hgb. The patient may need transfusion. I will not anticaogulate for atrial fibrillation given anemia. Status: Acute
[2017-07-05 05:40] LABS: HEMOGLOBIN 9.1 g/dL (12.0-16.0); MEAN CELL VOLUME 101.1 fl (81.0-99.0); MEAN CORPUSCULAR HEMOGLOBIN 33.6 pg (27.0-31.0); MEAN CORPUSCULAR HGB CONC 33.2 g/dL (33.0-37.0); RBC 2.72 Mil/uL (3.80-5.20); RED CELL DISTRIBUTION WIDTH 18.3 % (11.5-14.5); WHITE BLOOD COUNT 5.1 K/uL (4.8-10.8)
--- NOTE | 2017-07-05 08:26 | CARD ---
APPROVED REPORT EKG Measurement Heart [id number] <Conclusion> Sinus tachycardia Moderate voltage criteria for LVH, may be normal variant Cannot rule out Inferior infarct, age undetermined Cannot rule out anterolateral infarct, age undetermined Abnormal ECG
[2017-07-05] MEDS: Metoprolol Succinate 50 mg XL Tab PO SCH (09:45)
[2017-07-05] MEDS: Calcium-Vit D 500 mg-200 Units Tab UD PO SCH (09:46)
[2017-07-05] MEDS: Enoxaparin 30 mg Syringe SC SCH (09:46)
--- NOTE | 2017-07-05 11:53 | CP.CCUPN ---
CCU Subjective - Physician Review Subjective (Free Text): Awake and alert, denies any chest discomfort, SOB dizziness, palpitations at bed rest. BP borderline at 95 systolic, HR 79 in A flutter with 4:1 conduction at time and alternating with A fib with same controlled VR. No fever spikes. Other vitals and I/O's reviewed. ROS: No other pertinent negs or positives on 10+ system review. PMSFH: All other Nursing and physician documentation reviewed to date; no new pertinent info noted relevant to current medical problems. CXR: none pending EKG: A flutter 79/min, no new ischemic changes IMPRESSION / MAJOR PROBLEMS NOW: 1. s/p rapid A flutter / A Fib 2. Possible NSTEMI 3. s/p Azotemia / Dehydration 4. 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 Chronic disease Anemia PLAN: 1. Will space out PO Metoprolol Succ and Cardizem dosing. IV Cardizem to stop now. 2. Continue ASA, nitrates, add Statin, and may need increase in BB dose. 3. Check TFTs. 4. Increase Lovenox to usual dose from renal dosing. 5. Stable for transfer to [facility] bed. Discontinue Alvarado. CCU Objective - Vital Signs / Intake & Output Vital Signs (Last 4 hours): Vital Signs Temp Pulse Resp BP Pulse Ox 07/05/17 09:57 110 H 10 L 100/63 98 07/05/17 09:45 108 H 100/63 07/05/17 08:00 98.2 F 85 17 101/62 100 Intake and Output (Last 8hrs): Intake & Output 07/04/17 07/05/17 07/05/17 22:59 06:59 14:59 Intake Total 120 0 Output Total 350 Balance 120 -350 Intake: IV 0 0 Oral 120 0 Output: Urine 350 Urethral (Alvarado) 350 - Physical Exam Head: Positive for: Normocephalic Pupils: Positive for: PERRL Extroacular Muscles: Positive for: EOMI Conjunctiva: Negative for: Icteric Neck: Positive for: Normal Range of Motion. Negative for: JVD Respiratory/Chest: Positive for: Clear to Auscultation. Negative for: Accessory Muscle Use Cardiovascular: Positive for: Murmurs, Normal S1, S2, Irregular Rhythm. Negative for: Regular Rate and Rhythm Abdomen: Positive for: Normal Bowel Sounds. Negative for: Tenderness, Distention, Mass/Organomegaly Upper Extremity: Positive for: Normal Inspection Lower Extremity: Positive for: Normal Inspection, Other (atrophy). Negative for : CALF TENDERNESS, Cyanosis Neurological: Positive for: GCS=15, Motor Func Grossly Intact Skin: Positive for: Warm, Dry. Negative for: Rashes Psychiatric: Positive for: Alert, Oriented x 3 - Medications Active Medications: Active Medications Generic Name Dose Route Start Last Admin Trade Name Freq PRN Reason Stop Dose Admin Acetaminophen 650 mg 07/04/17 01:19 07/04/17 12:22 Tylenol 325mg Tab PO 650 mg Q6 PRN Administration Pain, Mild (1-3) Alendronate Sodium 70 mg 07/02/17 23:20 Fosamax PO QWK [facility] Aspirin 81 mg 07/03/17 09:00 07/05/17 09:45 Aspirin Chewable PO 81 mg DAILY [facility] Administration Calcium/Vitamin D 1 tab 07/03/17 09:00 07/05/17 09:46 Oyster Shell Calcium/Vitamin D 500 Mg-200 Iu PO 1 tab DAILY [facility] Administration Diltiazem HCl 180 mg 07/04/17 11:15 07/04/17 11:25 Cardizem Cd PO 180 mg DAILY [facility] Administration Docusate Sodium 100 mg 07/04/17 18:15 07/05/17 09:45 Colace PO 100 mg BID [facility] Administration Enoxaparin Sodium 30 mg 07/03/17 09:00 07/05/17 09:46 Lovenox SC 30 mg DAILY [facility] Administration Protocol Isosorbide Mononitrate 30 mg 07/03/17 09:00 Imdur Er PO DAILY [facility] Levofloxacin 500 mg 07/04/17 17:00 07/04/17 17:10 Levaquin PO Not Given DAILY@1700 [facility] Protocol Metoprolol Succinate 50 mg 07/04/17 09:00 07/05/17 09:45 Toprol Xl PO 50 mg DAILY [facility] Administration - Patient Studies Lab Studies: Microbiology Studies 07/01/17 15:30 Blood Culture - Preliminary Blood NO GROWTH AFTER 3 DAYS 07/01/17 15:50 Blood Culture - Preliminary Blood NO GROWTH AFTER 3 DAYS 07/02/17 08:37 MRSA Culture (Admit) - Final Naris MRSA NOT DETECTED Lab Studies 07/05/17 07/05/17 07/05/17 Range/Units 07:27 05:25 05:00 WBC (4.8-10.8) K/uL RBC (3.80-5.20) Mil/uL Hgb (12.0-16.0) g/dL Hct (34.0-47.0) % MCV (81.0-99.0) fl MCH (27.0-31.0) pg MCHC (33.0-37.0) g/dL RDW (11.5-14.5) % Plt Count (130-400) K/uL POC Glucose (mg/dL) 146 H (65-110) mg/dL Blood Type A POSITIVE Blood Type Confirm A POSITIVE Antibody Screen Negative Crossmatch See Detail BBK History Checked No verified bt 07/05/17 Range/Units 05:00 WBC 5.1 (4.8-10.8) K/uL RBC 2.72 L (3.80-5.20) Mil/uL Hgb 9.1 L D (12.0-16.0) g/dL Hct 27.5 L (34.0-47.0) % MCV 101.1 H D (81.0-99.0) fl MCH 33.6 H (27.0-31.0) pg MCHC 33.2 (33.0-37.0) g/dL RDW 18.3 H (11.5-14.5) % Plt Count 203 (130-400) K/uL POC Glucose (mg/dL) (65-110) mg/dL Blood Type Blood Type Confirm Antibody Screen Crossmatch BBK History Checked Laboratory Results - last 24 hr 07/05/17 07/05/17 07/05/17 05:00 05:00 05:25 WBC 5.1 RBC 2.72 L Hgb 9.1 L D Hct 27.5 L MCV 101.1 H D MCH 33.6 H MCHC 33.2 RDW 18.3 H Plt Count 203 POC Glucose (mg/dL) 146 H Blood Type A POSITIVE Blood Type Confirm Antibody Screen Negative Crossmatch See Detail BBK History Checked No verified bt 07/05/17 07:27 WBC RBC Hgb Hct MCV MCH MCHC RDW Plt Count POC Glucose (mg/dL) Blood Type Blood Type Confirm A POSITIVE Antibody Screen Crossmatch BBK History Checked EKG/Cardiology Studies: see above Fingerstick Blood Sugar Results: 100 Review of Systems - Review of Systems All systems: reviewed and no additional remarkable complaints except (as above) Critical Care Progress Note - Nutrition Nutrition: Nutrition Category Date Time Status Heart Healthy Diet [DIET] Diets 07/04/17 Breakfast Active
[2017-07-05] MEDS: diltiaZEM 180 mg/24 Hours CD Cap PO SCH (12:00)
--- NOTE | 2017-07-05 14:15 | CP.PCM.PN ---
<Miranda Beatty - Last Filed: 07/05/17 14:16> Subjective - Date & Time of Evaluation Date of Evaluation: 07/05/17 Time of Evaluation: 10:20 - Subjective Subjective: Patient seen and examined at bedside with attending-Dr Avelar. Awake, alert, cooperative with exam. Reports comfortable on supplemental O2 via nasal cannula. Denies chest pain, SOB, dizziness or palpitations. Objective - Vital Signs/Intake and Output Vital Signs (last 24 hours): Temp Pulse Resp BP Pulse Ox 98.1 F 93 H 21 97/61 L 99 07/05/17 12:00 07/05/17 12:00 07/05/17 12:00 07/05/17 12:00 07/05/17 12:00 Intake and Output: 07/05/17 07/05/17 06:59 18:59 Intake Total 20 Output Total 350 Balance -330 - Medications Medications: Current Medications Acetaminophen (Tylenol 325mg Tab) 650 mg PO Q6 PRN PRN Reason: Pain, Mild (1-3) Last Admin: 07/04/17 12:22 Dose: 650 mg Alendronate Sodium (Fosamax) 70 mg PO QWK [facility] Aspirin (Aspirin Chewable) 81 mg PO DAILY [facility] Last Admin: 07/05/17 09:45 Dose: 81 mg Calcium/Vitamin D (Oyster Shell Calcium/Vitamin D 500 Mg-200 Iu) 1 tab PO DAILY [facility] Last Admin: 07/05/17 09:46 Dose: 1 tab Diltiazem HCl (Cardizem Cd) 180 mg PO DAILY [facility] Last Admin: 07/04/17 11:25 Dose: 180 mg Docusate Sodium (Colace) 100 mg PO BID [facility] Last Admin: 07/05/17 09:45 Dose: 100 mg Enoxaparin Sodium (Lovenox) 30 mg SC DAILY [facility] PRN Reason: Protocol Last Admin: 07/05/17 09:46 Dose: 30 mg Isosorbide Mononitrate (Imdur Er) 30 mg PO DAILY [facility] Levofloxacin (Levaquin) 500 mg PO DAILY@1700 [facility] PRN Reason: Protocol Last Admin: 07/04/17 17:10 Dose: Not Given Metoprolol Succinate (Toprol Xl) 50 mg PO DAILY [facility] Last Admin: 07/05/17 09:45 Dose: 50 mg - Labs Labs: 07/05/17 05:00 01/16/18 06:13 PT 12.9 Seconds (9.8-13.1) 07/01/17 15:20 INR 1.2 (0.9-1.2) 07/01/17 15:20 APTT 31.5 Seconds (25.6-37.1) 07/01/17 15:20 - Constitutional Appears: Cachectic, Chronically Ill - Head Exam Head Exam: ATRAUMATIC, NORMOCEPHALIC - Eye Exam Eye Exam: EOMI - ENT Exam ENT Exam: Mucous Membranes Moist - Neck Exam Neck Exam: Full ROM - Respiratory Exam Respiratory Exam: Decreased Breath Sounds, NORMAL BREATHING PATTERN - Cardiovascular Exam Cardiovascular Exam: Irregular Rhythm, +S1, +S2, Murmur Additional comments: abnormal heart sounds - GI/Abdominal Exam GI & Abdominal Exam: Soft, Normal Bowel Sounds - Extremities Exam Extremities Exam: Full ROM. absent: Pedal Edema - Neurological Exam Neurological Exam: Alert, Awake, Oriented x3 - Psychiatric Exam Psychiatric exam: Normal Affect, Normal Mood - Skin Skin Exam: Dry, Warm Assessment and Plan - Assessment and Plan (Free Text) Assessment: 86 yr old F admitted for acute bronchitis. A-fib with RVR developed during this admission. -cardiology consult appreciated: : will follow recommendations: LV normal by echo -was on cardizem drip at 5mg/hr; now Cardizem 180mg PO QD -supplemental O2 via nasal cannula to keep SpO2 > 92% -Levofloxacin 500mg PO QD -DVT prophylaxis: Lovenox 40 mg SC QD <Asim Avelar - Last Filed: 07/09/17 14:41> Objective - Vital Signs/Intake and Output Vital Signs (last 24 hours): Temp Pulse Resp BP Pulse Ox 97.4 F L 71 23 156/82 H 89 L 07/09/17 13:30 07/09/17 13:30 07/09/17 13:30 07/09/17 13:36 07/09/17 13:30 - Medications Medications: Current Medications Acetaminophen (Tylenol 325mg Tab) 650 mg PO Q6 PRN PRN Reason: Pain, Mild (1-3) Last Admin: 07/08/17 17:53 Dose: 650 mg Alendronate Sodium (Fosamax) 70 mg PO QWK [facility] Amiodarone HCl (Cordarone) 200 mg PO DAILY [facility] Last Admin: 07/09/17 08:01 Dose: 200 mg Aspirin (Aspirin Chewable) 81 mg PO DAILY [facility] Last Admin: 07/09/17 08:00 Dose: 81 mg Calcium/Vitamin D (Oyster Shell Calcium/Vitamin D 500 Mg-200 Iu) 1 tab PO DAILY [facility] Last Admin: 07/09/17 08:02 Dose: 1 tab Diltiazem HCl (Cardizem Cd) 180 mg PO DAILY [facility] Last Admin: 07/09/17 08:00 Dose: 180 mg Docusate Sodium (Colace) 100 mg PO BID [facility] Last Admin: 07/09/17 08:01 Dose: 100 mg Enoxaparin Sodium (Lovenox) 40 mg SC DAILY [facility] PRN Reason: Protocol Last Admin: 07/09/17 07:59 Dose: 40 mg Ferrous Sulfate (Feosol Liq) 300 mg PO TID [facility] Last Admin: 07/09/17 12:29 Dose: 300 mg Furosemide (Lasix) 20 mg IV STAT STA Stop: 07/09/17 14:37 Nitroglycerin/Dextrose (Nitroglycerin 50 Mg/250 Ml D5w) 50 mg in 250 mls @ 3 mls/hr IV .Q24H ONE; 10 MCG/MIN PRN Reason: Protocol Stop: 07/10/17 14:38 Isosorbide Mononitrate (Imdur Er) 30 mg PO DAILY [facility] Levofloxacin (Levaquin) 500 mg PO DAILY@1700 [facility] PRN Reason: Protocol Last Admin: 07/08/17 17:07 Dose: 500 mg Lidocaine (Lidoderm) 1 ea TD DAILY [facility] Last Admin: 07/09/17 07:59 Dose: 1 ea Megestrol Acetate (Megace) 400 mg PO DAILY [facility] Last Admin: 07/09/17 08:02 Dose: 400 mg Metoprolol Succinate (Toprol Xl) 50 mg PO DAILY [facility] Last Admin: 07/09/17 08:02 Dose: 50 mg Tramadol HCl (Ultram) 50 mg PO DAILY PRN PRN Reason: Pain, severe (8-10) - Labs Labs: 07/07/17 05:50 07/07/17 05:50 PT 12.9 Seconds (9.8-13.1) 07/01/17 15:20 INR 1.2 (0.9-1.2) 07/01/17 15:20 APTT 31.5 Seconds (25.6-37.1) 07/01/17 15:20 Assessment and Plan (1) Acute exacerbation of CHF (congestive heart failure) Status: Acute (2) Atrial fibrillation Status: Acute (3) Non-STEMI (non-ST elevated myocardial infarction) Status: Acute (4) Anemia Status: Acute - Assessment and Plan (Free Text) Plan: I was present during evaluation and discussed with Dr Beatty re plans of care and mgt. Asim Avelar M.D.
[2017-07-05] MEDS ORDERED: Digoxin 500 mcg/2ml (0.5 mg/2ml) Inj IVP ONE ×2 (15:18→16:39)
[2017-07-05] MEDS ORDERED: Sodium Chloride 0.9% 500 ML IV ONE (15:18)
--- NOTE | 2017-07-05 16:21 | CARD ---
APPROVED REPORT EKG Measurement Heart [id number] <Conclusion> Atrial fibrillation with rapid ventricular response Moderate voltage criteria for LVH, may be normal variant Cannot rule out Septal infarct, age undetermined Abnormal ECG
[2017-07-05] MEDS ORDERED: POLYETHYLENE GLYCOL 3350 17 GM/Dose PACKET PO ONE (16:45)
[2017-07-05] MEDS: levoFLOXacin 500 MG TAB PO SCH (17:56)
[2017-07-06] MEDS ORDERED: Digoxin 500 mcg/2ml (0.5 mg/2ml) Inj IVP ONE ×2 (00:02→12:29)
[2017-07-06] MEDS: diltiaZEM 180 mg/24 Hours CD Cap PO SCH (08:28)
[2017-07-06] MEDS: Metoprolol Succinate 50 mg XL Tab PO SCH (08:29)
[2017-07-06] MEDS: Enoxaparin 40 mg Syringe SC SCH (08:29)
[2017-07-06] MEDS: Calcium-Vit D 500 mg-200 Units Tab UD PO SCH (08:29)
[2017-07-06] MEDS ORDERED: Metoprolol 1 mg/ml Inj IVP ONE (09:02)
[2017-07-06] MEDS ORDERED: Amiodarone 150mg/3 ml vial ONE (09:13)
[2017-07-06] MEDS ORDERED: Amiodarone 900 MG in Dextrose 5% In Water 500 ML IVPB SCH (09:22)
[2017-07-06 09:38] LABS: HEMOGLOBIN 9.3 g/dL (12.0-16.0); MEAN CELL VOLUME 100.6 fl (81.0-99.0); MEAN CORPUSCULAR HEMOGLOBIN 33.4 pg (27.0-31.0); MEAN CORPUSCULAR HGB CONC 33.2 g/dL (33.0-37.0); RBC 2.79 Mil/uL (3.80-5.20); RED CELL DISTRIBUTION WIDTH 18.4 % (11.5-14.5)
[2017-07-06] MEDS ORDERED: Amiodarone 150 MG in Sodium Chloride 0.9% 100 ML IVPB ONE (10:00)
[2017-07-06 10:02] LABS: BLOOD UREA NITROGEN 19 mg/dl (7-17); CALCIUM 9.9 mg/dL (8.4-10.2); GFR AFRICAN-AMERICAN > 60; GFR NON-AFRICAN AMERICAN > 60
[2017-07-06] MEDS: Amiodarone 450 MG in Sodium Chloride 0.9% 250 ML IVPB SCH ×2 (10:23→16:45)
--- NOTE | 2017-07-06 12:32 | CP.PCM.PN ---
Subjective - Date & Time of Evaluation Date of Evaluation: 07/06/17 Time of Evaluation: 12:00 - Subjective Subjective: patient has no new complaints Objective - Vital Signs/Intake and Output Vital Signs (last 24 hours): Temp Pulse Resp BP Pulse Ox 98.4 F 105 H 10 L 96/54 L 96 07/06/17 08:00 07/06/17 10:23 07/06/17 10:23 07/06/17 10:23 07/06/17 10:23 Intake and Output: 07/06/17 07/06/17 06:59 18:59 Intake Total 0 Output Total 300 Balance -300 - Medications Medications: Current Medications Acetaminophen (Tylenol 325mg Tab) 650 mg PO Q6 PRN PRN Reason: Pain, Mild (1-3) Last Admin: 07/06/17 03:30 Dose: 650 mg Alendronate Sodium (Fosamax) 70 mg PO QWK [facility] Aspirin (Aspirin Chewable) 81 mg PO DAILY [facility] Last Admin: 07/06/17 08:27 Dose: 81 mg Calcium/Vitamin D (Oyster Shell Calcium/Vitamin D 500 Mg-200 Iu) 1 tab PO DAILY [facility] Last Admin: 07/06/17 08:29 Dose: 1 tab Diltiazem HCl (Cardizem Cd) 180 mg PO DAILY [facility] Last Admin: 07/06/17 08:28 Dose: 180 mg Docusate Sodium (Colace) 100 mg PO BID [facility] Last Admin: 07/06/17 08:28 Dose: 100 mg Enoxaparin Sodium (Lovenox) 40 mg SC DAILY [facility] PRN Reason: Protocol Last Admin: 07/06/17 08:29 Dose: 40 mg Amiodarone HCl 450 mg/ Sodium (Chloride) 259 mls @ 34.53 mls/hr IVPB .Q7H31M [facility]; 1 MG/MIN PRN Reason: Protocol Last Admin: 07/06/17 10:23 Dose: 34.53 mls/hr Isosorbide Mononitrate (Imdur Er) 30 mg PO DAILY [facility] Levofloxacin (Levaquin) 500 mg PO DAILY@1700 [facility] PRN Reason: Protocol Last Admin: 07/05/17 17:56 Dose: 500 mg Metoprolol Succinate (Toprol Xl) 50 mg PO DAILY [facility] Last Admin: 07/06/17 08:29 Dose: 50 mg - Labs Labs: 07/06/17 09:31 07/06/17 09:31 PT 12.9 Seconds (9.8-13.1) 07/01/17 15:20 INR 1.2 (0.9-1.2) 07/01/17 15:20 APTT 31.5 Seconds (25.6-37.1) 07/01/17 15:20 - Constitutional Appears: Non-toxic - Head Exam Head Exam: NORMAL INSPECTION - Eye Exam Eye Exam: Normal appearance - ENT Exam ENT Exam: Mucous Membranes Moist - Neck Exam Neck Exam: Full ROM - Respiratory Exam Respiratory Exam: Decreased Breath Sounds - Cardiovascular Exam Cardiovascular Exam: Irregular Rhythm - GI/Abdominal Exam GI & Abdominal Exam: Normal Bowel Sounds - Rectal Exam Rectal Exam: Deferred - Extremities Exam Extremities Exam: absent: Pedal Edema - Back Exam Back Exam: NORMAL INSPECTION - Neurological Exam Neurological Exam: Alert - Psychiatric Exam Psychiatric exam: Normal Affect - Skin Skin Exam: Normal Color Assessment and Plan (1) Atrial fibrillation Assessment & Plan: will givne a dose of digoxin today. on amiodarone. medical therapy. follow Hgb. Status: Acute
--- NOTE | 2017-07-06 15:10 | CP.PCM.PN ---
Addendum entered and electronically signed by Miranda Baetty MD 07/07/17 07 :34: Patient was admitted for acute on chronic CHF with preserved EF. Original Note: <Miranda Beatty - Last Filed: 07/06/17 15:05> Subjective - Date & Time of Evaluation Date of Evaluation: 07/06/17 Time of Evaluation: 11:05 - Subjective Subjective: Patient seen and examined at bedside with attending- Dr. Avelar. Awake and alert. Reports comfortable on oxygen. Denies chest pain or palpitations. quality assurance monitor final displays tachycardia of 106. Objective - Vital Signs/Intake and Output Vital Signs (last 24 hours): Temp Pulse Resp BP Pulse Ox 97.7 F 92 H 13 92/55 L 100 07/06/17 12:00 07/06/17 12:00 07/06/17 12:00 07/06/17 12:00 07/06/17 12:00 Intake and Output: 07/06/17 07/06/17 06:59 18:59 Intake Total 0 Output Total 300 Balance -300 - Medications Medications: Current Medications Acetaminophen (Tylenol 325mg Tab) 650 mg PO Q6 PRN PRN Reason: Pain, Mild (1-3) Last Admin: 07/06/17 03:30 Dose: 650 mg Alendronate Sodium (Fosamax) 70 mg PO QWK [facility] Aspirin (Aspirin Chewable) 81 mg PO DAILY [facility] Last Admin: 07/06/17 08:27 Dose: 81 mg Calcium/Vitamin D (Oyster Shell Calcium/Vitamin D 500 Mg-200 Iu) 1 tab PO DAILY [facility] Last Admin: 07/06/17 08:29 Dose: 1 tab Diltiazem HCl (Cardizem Cd) 180 mg PO DAILY [facility] Last Admin: 07/06/17 08:28 Dose: 180 mg Docusate Sodium (Colace) 100 mg PO BID [facility] Last Admin: 07/06/17 08:28 Dose: 100 mg Enoxaparin Sodium (Lovenox) 40 mg SC DAILY [facility] PRN Reason: Protocol Last Admin: 07/06/17 08:29 Dose: 40 mg Amiodarone HCl 450 mg/ Sodium (Chloride) 259 mls @ 34.53 mls/hr IVPB .Q7H31M [facility]; 1 MG/MIN PRN Reason: Protocol Last Admin: 01/18/18 10:23 Dose: 34.53 mls/hr Isosorbide Mononitrate (Imdur Er) 30 mg PO DAILY [facility] Levofloxacin (Levaquin) 500 mg PO DAILY@1700 [facility] PRN Reason: Protocol Last Admin: 07/05/17 17:56 Dose: 500 mg Metoprolol Succinate (Toprol Xl) 50 mg PO DAILY [facility] Last Admin: 07/06/17 08:29 Dose: 50 mg - Labs Labs: 07/06/17 09:31 07/06/17 09:31 PT 12.9 Seconds (9.8-13.1) 07/01/17 15:20 INR 1.2 (0.9-1.2) 07/01/17 15:20 APTT 31.5 Seconds (25.6-37.1) 07/01/17 15:20 - Constitutional Appears: Cachectic, Chronically Ill - Head Exam Head Exam: ATRAUMATIC, NORMOCEPHALIC - Eye Exam Eye Exam: EOMI - ENT Exam ENT Exam: Mucous Membranes Moist - Neck Exam Neck Exam: Full ROM - Respiratory Exam Respiratory Exam: NORMAL BREATHING PATTERN - Cardiovascular Exam Cardiovascular Exam: Irregular Rhythm - GI/Abdominal Exam GI & Abdominal Exam: Normal Bowel Sounds - Extremities Exam Extremities Exam: Full ROM. absent: Pedal Edema - Neurological Exam Neurological Exam: Alert, Awake, CN II-XII Intact - Psychiatric Exam Psychiatric exam: Normal Affect, Normal Mood - Skin Skin Exam: Dry, Warm Assessment and Plan - Assessment and Plan (Free Text) Assessment: 86 yr old F admitted for acute bronchitis and acute on chronic CHF. A-fib with RVR developed during this admission. -cardiology consult appreciated: : LV normal by echo, will give a dose of digoxin, on amiodarone, f/u Hgb -was on cardizem drip at 5mg/hr; now Cardizem 180mg PO QD -supplemental O2 via nasal cannula to keep SpO2 > 92% -Levofloxacin 500mg PO QD -DVT prophylaxis: Lovenox 40 mg SC QD -f/u CBC -PT/OT <Asim Avelar - Last Filed: 07/09/17 14:43> Objective - Vital Signs/Intake and Output Vital Signs (last 24 hours): Temp Pulse Resp BP Pulse Ox 97.4 F L 71 23 156/82 H 89 L 07/09/17 13:30 07/09/17 13:30 07/09/17 13:30 07/09/17 13:36 07/09/17 13:30 - Medications Medications: Current Medications Acetaminophen (Tylenol 325mg Tab) 650 mg PO Q6 PRN PRN Reason: Pain, Mild (1-3) Last Admin: 07/08/17 17:53 Dose: 650 mg Alendronate Sodium (Fosamax) 70 mg PO QWK [facility] Amiodarone HCl (Cordarone) 200 mg PO DAILY [facility] Last Admin: 07/09/17 08:01 Dose: 200 mg Aspirin (Aspirin Chewable) 81 mg PO DAILY [facility] Last Admin: 07/09/17 08:00 Dose: 81 mg Calcium/Vitamin D (Oyster Shell Calcium/Vitamin D 500 Mg-200 Iu) 1 tab PO DAILY [facility] Last Admin: 07/09/17 08:02 Dose: 1 tab Diltiazem HCl (Cardizem Cd) 180 mg PO DAILY [facility] Last Admin: 07/09/17 08:00 Dose: 180 mg Docusate Sodium (Colace) 100 mg PO BID [facility] Last Admin: 07/09/17 08:01 Dose: 100 mg Enoxaparin Sodium (Lovenox) 40 mg SC DAILY [facility] PRN Reason: Protocol Last Admin: 07/09/17 07:59 Dose: 40 mg Ferrous Sulfate (Feosol Liq) 300 mg PO TID [facility] Last Admin: 07/09/17 12:29 Dose: 300 mg Nitroglycerin/Dextrose (Nitroglycerin 50 Mg/250 Ml D5w) 50 mg in 250 mls @ 3 mls/hr IV .Q24H ONE; 10 MCG/MIN PRN Reason: Protocol Stop: 07/10/17 14:38 Isosorbide Mononitrate (Imdur Er) 30 mg PO DAILY [facility] Levofloxacin (Levaquin) 500 mg PO DAILY@1700 [facility] PRN Reason: Protocol Last Admin: 07/08/17 17:07 Dose: 500 mg Lidocaine (Lidoderm) 1 ea TD DAILY [facility] Last Admin: 07/09/17 07:59 Dose: 1 ea Megestrol Acetate (Megace) 400 mg PO DAILY [facility] Last Admin: 07/09/17 08:02 Dose: 400 mg Metoprolol Succinate (Toprol Xl) 50 mg PO DAILY [facility] Last Admin: 07/09/17 08:02 Dose: 50 mg Tramadol HCl (Ultram) 50 mg PO DAILY PRN PRN Reason: Pain, severe (8-10) - Labs Labs: 07/07/17 05:50 07/07/17 05:50 PT 12.9 Seconds (9.8-13.1) 07/01/17 15:20 INR 1.2 (0.9-1.2) 07/01/17 15:20 APTT 31.5 Seconds (25.6-37.1) 07/01/17 15:20 Assessment and Plan (1) Acute exacerbation of CHF (congestive heart failure) Status: Acute (2) Atrial fibrillation Status: Acute (3) Non-STEMI (non-ST elevated myocardial infarction) Status: Acute (4) Anemia Status: Acute - Assessment and Plan (Free Text) Plan: I was present during evaluation and discussed with Dr Beatty re plans of care and mgt. Asim Avelar M.D.
[2017-07-06] MEDS: levoFLOXacin 500 MG TAB PO SCH (16:48)
--- NOTE | 2017-07-06 17:34 | CP.CCUPN ---
CCU Subjective - Physician Review Subjective (Free Text): Recurrent tachyarrhythmias manifest as predominant A fib with RVR now. Unresponsive to Digoxin, and too hypotensive for Cardizem IV nor IV BBs. She is not in distress nor is she c/o chest discomfort, SOB at be rest. Decision made to trial IV Amiodarone bolus. Other vitals and I/O's reviewed. ROS: No other pertinent negs or positives on 10+ system review. PMSFH: All other Nursing and physician documentation reviewed to date; no new pertinent info noted relevant to current medical problems. CXR: none pending IMPRESSION / MAJOR PROBLEMS NOW: 1. s/p rapid A flutter / A Fib 2. Possible NSTEMI 3. s/p Azotemia / Dehydration 4. 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 Chronic disease Anemia PLAN: 1. Amiodarone bolus and infusion effective so far in controlling VR. Will space out PO Metoprolol Succ and Cardizem dosing. IV Cardizem to stop now. 2. Continue ASA, nitrates, add Statin, and may need increase in BB dose. 3. Check TFTs. 4. Increase Lovenox to usual dose from renal dosing. 5. Stable for transfer to [facility] bed. Discontinue Alvarado. CCU Objective - Vital Signs / Intake & Output Vital Signs (Last 4 hours): Vital Signs Temp Pulse Resp BP Pulse Ox 07/06/17 16:45 75 23 97/56 L 100 07/06/17 16:00 97.5 F L 65 14 97/56 L 100 07/06/17 14:00 78 32 H 106/59 L 100 Intake and Output (Last 8hrs): Intake & Output 07/06/17 07/06/17 07/06/17 06:59 14:59 22:59 Intake Total 0 Output Total 200 Balance -200 Intake: Oral 0 Output: Urine 200 Urethral (Alvarado) 200 - Physical Exam Head: Positive for: Normocephalic Pupils: Positive for: PERRL Extroacular Muscles: Positive for: EOMI Conjunctiva: Negative for: Icteric Neck: Positive for: Normal Range of Motion. Negative for: JVD Respiratory/Chest: Positive for: Clear to Auscultation. Negative for: Accessory Muscle Use Cardiovascular: Positive for: Murmurs, Normal S1, S2, Irregular Rhythm. Negative for: Regular Rate and Rhythm Abdomen: Positive for: Normal Bowel Sounds. Negative for: Tenderness, Distention, Mass/Organomegaly Upper Extremity: Positive for: Normal Inspection Lower Extremity: Positive for: Normal Inspection, Other (atrophy). Negative for : CALF TENDERNESS, Cyanosis Neurological: Positive for: GCS=15, Motor Func Grossly Intact Skin: Positive for: Warm, Dry. Negative for: Rashes Psychiatric: Positive for: Alert, Oriented x 3 - Medications Active Medications: Active Medications Generic Name Dose Route Start Last Admin Trade Name Freq PRN Reason Stop Dose Admin Acetaminophen 650 mg 07/04/17 01:19 07/06/17 03:30 Tylenol 325mg Tab PO 650 mg Q6 PRN Administration Pain, Mild (1-3) Alendronate Sodium 70 mg 07/02/17 23:20 Fosamax PO QWK [facility] Aspirin 81 mg 07/03/17 09:00 07/06/17 08:27 Aspirin Chewable PO 81 mg DAILY [facility] Administration Calcium/Vitamin D 1 tab 07/03/17 09:00 07/06/17 08:29 Oyster Shell Calcium/Vitamin D 500 Mg-200 Iu PO 1 tab DAILY [facility] Administration Diltiazem HCl 180 mg 07/04/17 11:15 07/06/17 08:28 Cardizem Cd PO 180 mg DAILY [facility] Administration Docusate Sodium 100 mg 07/04/17 18:15 07/06/17 16:48 Colace PO 100 mg BID [facility] Administration Enoxaparin Sodium 40 mg 07/06/17 09:00 07/06/17 08:29 Lovenox SC 40 mg DAILY [facility] Administration Protocol Amiodarone HCl 450 mg/ Sodium 259 mls @ 34.53 mls/hr 07/06/17 09:25 07/06/17 16:45 Chloride IVPB 16.7 mls/hr .Q7H31M [facility] Administration Protocol 1 MG/MIN Isosorbide Mononitrate 30 mg 07/03/17 09:00 Imdur Er PO DAILY [facility] Levofloxacin 500 mg 07/04/17 17:00 07/06/17 16:48 Levaquin PO 500 mg DAILY@1700 [facility] Administration Protocol Metoprolol Succinate 50 mg 07/04/17 09:00 07/06/17 08:29 Toprol Xl PO 50 mg DAILY [facility] Administration - Patient Studies Lab Studies: Microbiology Studies 07/01/17 15:30 Blood Culture - Final Blood NO GROWTH AFTER 5 DAYS Gram Stain - Final TEST NOT PERFORMED 07/01/17 15:50 Blood Culture - Final Blood NO GROWTH AFTER 5 DAYS Gram Stain - Final TEST NOT PERFORMED Lab Studies 07/06/17 07/06/17 Range/Units 09:31 09:31 WBC 4.0 L (4.8-10.8) K/uL RBC 2.79 L (3.80-5.20) Mil/uL Hgb 9.3 L (12.0-16.0) g/dL Hct 28.1 L (34.0-47.0) % MCV 100.6 H (81.0-99.0) fl MCH 33.4 H (27.0-31.0) pg MCHC 33.2 (33.0-37.0) g/dL RDW 18.4 H (11.5-14.5) % Plt Count 217 (130-400) K/uL Sodium 143 (132-148) mmol/l Potassium 3.9 (3.6-5.0) MMOL/L Chloride 99 (98-107) mmol/L Carbon Dioxide 33 H (22-30) mmol/L Anion Gap 15 (10-20) BUN 19 H (7-17) mg/dl Creatinine 0.6 L (0.7-1.2) mg/dl Est GFR ( Amer) > 60 Est GFR (Non-Af Amer) > 60 Random Glucose 174 H (65-105) mg/dL Calcium 9.9 (8.4-10.2) mg/dL Laboratory Results - last 24 hr 07/06/17 07/06/17 09:31 09:31 WBC 4.0 L RBC 2.79 L Hgb 9.3 L Hct 28.1 L MCV 100.6 H MCH 33.4 H MCHC 33.2 RDW 18.4 H Plt Count 217 Sodium 143 Potassium 3.9 Chloride 99 Carbon Dioxide 33 H Anion Gap 15 BUN 19 H Creatinine 0.6 L Est GFR ( Amer) > 60 Est GFR (Non-Af Amer) > 60 Random Glucose 174 H Calcium 9.9 Fingerstick Blood Sugar Results: 100 Review of Systems - Review of Systems All systems: reviewed and no additional remarkable complaints except (see above , none reported by family at the bedside) Critical Care Progress Note - Nutrition Nutrition: Nutrition Category Date Time Status Heart Healthy Diet [DIET] Diets 07/04/17 Breakfast Active
[2017-07-07 06:25] LABS: HEMOGLOBIN 8.4 g/dL (12.0-16.0); MEAN CELL VOLUME 101.9 fl (81.0-99.0); MEAN CORPUSCULAR HEMOGLOBIN 33.4 pg (27.0-31.0); MEAN CORPUSCULAR HGB CONC 32.7 g/dL (33.0-37.0); RBC 2.52 Mil/uL (3.80-5.20); RED CELL DISTRIBUTION WIDTH 18.1 % (11.5-14.5); WHITE BLOOD COUNT 4.3 K/uL (4.8-10.8)
[2017-07-07 06:30] LABS: BLOOD UREA NITROGEN 19 mg/dl (7-17); CALCIUM 9.7 mg/dL (8.4-10.2); GFR AFRICAN-AMERICAN > 60; GFR NON-AFRICAN AMERICAN > 60
--- NOTE | 2017-07-07 07:02 | CP.CCUPN ---
CCU Subjective - Physician Review Subjective (Free Text): Tachyarrhythmias finally controlled after initiation of IV Amiodarone, after approx 18 hours on maintenance drip, became bradycardic to 50, and Amiodarone discontinued. HR now 59 and in NSR. She is not in distress nor is she c/o chest discomfort, SOB at be rest. Other vitals and I/O's reviewed. ROS: No other pertinent negs or positives on 10+ system review. PMSFH: All other Nursing and physician documentation reviewed to date; no new pertinent info noted relevant to current medical problems. CXR: none pending IMPRESSION / MAJOR PROBLEMS NOW: 1. s/p rapid A flutter / A Fib 2. Possible NSTEMI 3. s/p Azotemia / Dehydration 4. 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 Chronic disease Anemia PLAN: 1. Off Amiodarone for now. Staggered dosing of PO Metoprolol Succ and Cardizem , watch BP levels. 2. Continue ASA, nitrates, add Statin?. 3. Check TFTs. 4. Increase Lovenox to usual dose from renal dosing. 5. Stable for transfer to [facility] bed. Discontinue Alvarado. CCU Objective - Vital Signs / Intake & Output Vital Signs (Last 4 hours): Vital Signs Pulse Resp BP Pulse Ox 07/07/17 06:00 50 L 17 113/50 L 100 07/07/17 05:00 59 L 17 92/56 L 100 07/07/17 04:00 65 19 106/69 100 07/07/17 03:00 62 17 92/62 L 100 Intake and Output (Last 8hrs): Intake & Output 07/06/17 07/06/17 07/07/17 14:59 22:59 06:59 Intake Total 630 165 Output Total 500 100 Balance 130 65 Intake: IV 300 165 Oral 330 Output: Urine 500 100 Urethral (Alvarado) 300 Urine, Voided 200 100 Other: # Voids Urine, Voided 1 1 # Bowel Movements 0 - Physical Exam Head: Positive for: Normocephalic Pupils: Positive for: PERRL Extroacular Muscles: Positive for: EOMI Conjunctiva: Negative for: Icteric Neck: Positive for: Normal Range of Motion. Negative for: JVD Respiratory/Chest: Positive for: Clear to Auscultation. Negative for: Accessory Muscle Use Cardiovascular: Positive for: Murmurs, Normal S1, S2, Irregular Rhythm. Negative for: Regular Rate and Rhythm Abdomen: Positive for: Normal Bowel Sounds. Negative for: Tenderness, Distention, Mass/Organomegaly Upper Extremity: Positive for: Normal Inspection Lower Extremity: Positive for: Normal Inspection, Other (atrophy). Negative for : CALF TENDERNESS, Cyanosis Neurological: Positive for: GCS=15, Motor Func Grossly Intact Skin: Positive for: Warm, Dry. Negative for: Rashes Psychiatric: Positive for: Alert, Oriented x 3 - Medications Active Medications: Active Medications Generic Name Dose Route Start Last Admin Trade Name Freq PRN Reason Stop Dose Admin Acetaminophen 650 mg 07/04/17 01:19 07/07/17 01:52 Tylenol 325mg Tab PO 650 mg Q6 PRN Administration Pain, Mild (1-3) Alendronate Sodium 70 mg 07/02/17 23:20 Fosamax PO QWK [facility] Aspirin 81 mg 07/03/17 09:00 07/06/17 08:27 Aspirin Chewable PO 81 mg DAILY [facility] Administration Calcium/Vitamin D 1 tab 07/03/17 09:00 07/06/17 08:29 Oyster Shell Calcium/Vitamin D 500 Mg-200 Iu PO 1 tab DAILY [facility] Administration Diltiazem HCl 180 mg 07/04/17 11:15 07/06/17 08:28 Cardizem Cd PO 180 mg DAILY [facility] Administration Docusate Sodium 100 mg 07/04/17 18:15 07/06/17 16:48 Colace PO 100 mg BID [facility] Administration Enoxaparin Sodium 40 mg 07/06/17 09:00 07/06/17 08:29 Lovenox SC 40 mg DAILY [facility] Administration Protocol Amiodarone HCl 450 mg/ 259 mls @ 34.53 mls/hr 07/06/17 19:45 07/07/17 06:14 Dextrose IVPB Not Given .Q7H31M [facility] Protocol 1 MG/MIN Isosorbide Mononitrate 30 mg 07/03/17 09:00 Imdur Er PO DAILY [facility] Levofloxacin 500 mg 07/04/17 17:00 07/06/17 16:48 Levaquin PO 500 mg DAILY@1700 [facility] Administration Protocol Metoprolol Succinate 50 mg 07/04/17 09:00 07/06/17 08:29 Toprol Xl PO 50 mg DAILY [facility] Administration - Patient Studies Lab Studies: Microbiology Studies 07/01/17 15:30 Blood Culture - Final Blood NO GROWTH AFTER 5 DAYS Gram Stain - Final TEST NOT PERFORMED 07/01/17 15:50 Blood Culture - Final Blood NO GROWTH AFTER 5 DAYS Gram Stain - Final TEST NOT PERFORMED Lab Studies 07/07/17 07/07/17 07/06/17 Range/Units 05:50 05:50 09:31 WBC 4.3 L (4.8-10.8) K/uL RBC 2.52 L (3.80-5.20) Mil/uL Hgb 8.4 L (12.0-16.0) g/dL Hct 25.7 L (34.0-47.0) % MCV 101.9 H (81.0-99.0) fl MCH 33.4 H (27.0-31.0) pg MCHC 32.7 L (33.0-37.0) g/dL RDW 18.1 H (11.5-14.5) % Plt Count 224 (130-400) K/uL Sodium 140 143 (132-148) mmol/l Potassium 5.0 3.9 (3.6-5.0) MMOL/L Chloride 97 L 99 (98-107) mmol/L Carbon Dioxide 34 H 33 H (22-30) mmol/L Anion Gap 14 15 (10-20) BUN 19 H 19 H (7-17) mg/dl Creatinine 0.6 L 0.6 L (0.7-1.2) mg/dl Est GFR ( Amer) > 60 > 60 Est GFR (Non-Af Amer) > 60 > 60 Random Glucose 101 174 H (65-105) mg/dL Calcium 9.7 9.9 (8.4-10.2) mg/dL 07/06/17 Range/Units 09:31 WBC 4.0 L (4.8-10.8) K/uL RBC 2.79 L (3.80-5.20) Mil/uL Hgb 9.3 L (12.0-16.0) g/dL Hct 28.1 L (34.0-47.0) % MCV 100.6 H (81.0-99.0) fl MCH 33.4 H (27.0-31.0) pg MCHC 33.2 (33.0-37.0) g/dL RDW 18.4 H (11.5-14.5) % Plt Count 217 (130-400) K/uL Sodium (132-148) mmol/l Potassium (3.6-5.0) MMOL/L Chloride (98-107) mmol/L Carbon Dioxide (22-30) mmol/L Anion Gap (10-20) BUN (7-17) mg/dl Creatinine (0.7-1.2) mg/dl Est GFR ( Amer) Est GFR (Non-Af Amer) Random Glucose (65-105) mg/dL Calcium (8.4-10.2) mg/dL Laboratory Results - last 24 hr 07/06/17 07/06/17 07/07/17 09:31 09:31 05:50 WBC 4.0 L 4.3 L RBC 2.79 L 2.52 L Hgb 9.3 L 8.4 L Hct 28.1 L 25.7 L MCV 100.6 H 101.9 H MCH 33.4 H 33.4 H MCHC 33.2 32.7 L RDW 18.4 H 18.1 H Plt Count 217 224 Sodium 143 Potassium 3.9 Chloride 99 Carbon Dioxide 33 H Anion Gap 15 BUN 19 H Creatinine 0.6 L Est GFR ( Amer) > 60 Est GFR (Non-Af Amer) > 60 Random Glucose 174 H Calcium 9.9 07/07/17 05:50 WBC RBC Hgb Hct MCV MCH MCHC RDW Plt Count Sodium 140 Potassium 5.0 Chloride 97 L Carbon Dioxide 34 H Anion Gap 14 BUN 19 H Creatinine 0.6 L Est GFR ( Amer) > 60 Est GFR (Non-Af Amer) > 60 Random Glucose 101 Calcium 9.7 Fingerstick Blood Sugar Results: 100 Review of Systems - Review of Systems All systems: reviewed and no additional remarkable complaints except (as above) Critical Care Progress Note - Nutrition Nutrition: Nutrition Category Date Time Status Heart Healthy Diet [DIET] Diets 07/04/17 Breakfast Active
--- NOTE | 2017-07-07 07:07 | PQF GENQUE ---
This form is a permanent part of the medical record Dr. Avelar, Please clarify the type of Acute on Chronic CHF in your progress notes. Patient presents with chest pain and sob. Diagnoses include Bronchitis and Acute exacerbation of CHF. Pro BNP 932. CXR: Stable chronic prominence of bilateral interstitial markings. ECHO: EF normal range with abnormal relaxation pattern. Treated with IV Lasix. Clarification of your documentation is requested to better reflect the severity of illness and intensity of treatment of your patient. Indicators present [] Specify: [] [] Specify: [] [] Specify: [] [] Specify: [] Location in the medical record that reflects the above clinical findings: [] Treatment Provided: [] PHYSICIAN'S RESPONSE Based on your medical judgment of the clinical indicators outlined above please clarify the following: [] Practitioner response [] If unable to determine, please check the box, sign and date. Present On Admission (POA) Indicator: [] Present at the time of admission [] Not present at the time of admission [] Clinically Undetermined In responding to this query, please exercise your independent professional judgment. The fact that a question is asked does not imply that any particular answer is desired or expected. Thank you for your clarification on this documentation. If you have any questions please call:ext [phone] * Thank you, Shannan Jain RN CDMP [facility]
[2017-07-07] MEDS: Metoprolol Succinate 50 mg XL Tab PO SCH (09:04)
[2017-07-07] MEDS: Enoxaparin 40 mg Syringe SC SCH (09:04)
[2017-07-07] MEDS: Calcium-Vit D 500 mg-200 Units Tab UD PO SCH (09:04)
[2017-07-07] MEDS: diltiaZEM 180 mg/24 Hours CD Cap PO SCH (09:04)
--- NOTE | 2017-07-07 09:31 | CP.PCM.PN ---
Subjective - Date & Time of Evaluation Date of Evaluation: 07/07/17 Time of Evaluation: 09:27 - Subjective Subjective: Patient is sitted comfortably. Has no chest pain or SOB BP is normal VT is 64. still on amiodarone Objective - Vital Signs/Intake and Output Vital Signs (last 24 hours): Temp Pulse Resp BP Pulse Ox 97.5 F L 63 21 124/62 100 07/07/17 08:00 07/07/17 09:04 07/07/17 08:00 07/07/17 09:04 07/07/17 08:00 Intake and Output: 07/07/17 07/07/17 06:59 18:59 Intake Total 281 Output Total 300 Balance -19 - Medications Medications: Current Medications Acetaminophen (Tylenol 325mg Tab) 650 mg PO Q6 PRN PRN Reason: Pain, Mild (1-3) Last Admin: 07/07/17 01:52 Dose: 650 mg Alendronate Sodium (Fosamax) 70 mg PO QWK [facility] Aspirin (Aspirin Chewable) 81 mg PO DAILY [facility] Last Admin: 07/07/17 09:03 Dose: 81 mg Calcium/Vitamin D (Oyster Shell Calcium/Vitamin D 500 Mg-200 Iu) 1 tab PO DAILY [facility] Last Admin: 07/07/17 09:04 Dose: 1 tab Diltiazem HCl (Cardizem Cd) 180 mg PO DAILY [facility] Last Admin: 07/07/17 09:04 Dose: 180 mg Docusate Sodium (Colace) 100 mg PO BID [facility] Last Admin: 07/07/17 09:03 Dose: 100 mg Enoxaparin Sodium (Lovenox) 40 mg SC DAILY [facility] PRN Reason: Protocol Last Admin: 07/07/17 09:04 Dose: 40 mg Amiodarone HCl 450 mg/ (Dextrose) 259 mls @ 34.53 mls/hr IVPB .Q7H31M JEB; 1 MG /MIN PRN Reason: Protocol Last Admin: 07/07/17 06:14 Dose: Not Given Isosorbide Mononitrate (Imdur Er) 30 mg PO DAILY [facility] Levofloxacin (Levaquin) 500 mg PO DAILY@1700 [facility] PRN Reason: Protocol Last Admin: 07/06/17 16:48 Dose: 500 mg Metoprolol Succinate (Toprol Xl) 50 mg PO DAILY [facility] Last Admin: 07/07/17 09:04 Dose: 50 mg - Labs Labs: 07/07/17 05:50 07/07/17 05:50 PT 12.9 Seconds (9.8-13.1) 07/01/17 15:20 INR 1.2 (0.9-1.2) 07/01/17 15:20 APTT 31.5 Seconds (25.6-37.1) 07/01/17 15:20 - Head Exam Head Exam: NORMAL INSPECTION - Eye Exam Eye Exam: Normal appearance - ENT Exam ENT Exam: Mucous Membranes Moist - Respiratory Exam Respiratory Exam: Clear to Ausculation Bilateral - Cardiovascular Exam Cardiovascular Exam: Irregular Rhythm - GI/Abdominal Exam GI & Abdominal Exam: Normal Bowel Sounds - Neurological Exam Neurological Exam: Awake, Oriented x3 - Psychiatric Exam Psychiatric exam: Normal Mood Assessment and Plan (1) Non-STEMI (non-ST elevated myocardial infarction) Status: Acute (2) Acute exacerbation of CHF (congestive heart failure) Status: Acute (3) Atrial fibrillation Status: Acute (4) Anemia Status: Acute - Assessment and Plan (Free Text) Plan: Cont meds Cont tx DC iv amidarone amiodarone 400 bid cont meds transfer to reg floor start phys therapy
[2017-07-07] MEDS: levoFLOXacin 500 MG TAB PO SCH (16:19)
[2017-07-07] MEDS: Ferrous Sulfate 300 mg/5 mL Liq UD PO SCH (16:19)
[2017-07-07] MEDS: Sodium Chloride 0.9% 1,000 ML IV SCH (19:59)
[2017-07-07] MEDS: Megestrol Acetate 40 mg/ml Cup PO SCH (20:42)
[2017-07-08] MEDS ORDERED: Megestrol Acetate 40 mg/ml Cup PO SCH (09:00)
[2017-07-08] MEDS: diltiaZEM 180 mg/24 Hours CD Cap PO SCH (10:16)
[2017-07-08] MEDS: Ferrous Sulfate 300 mg/5 mL Liq UD PO SCH ×3 (10:17→17:05)
[2017-07-08] MEDS: Enoxaparin 40 mg Syringe SC SCH (10:17)
[2017-07-08] MEDS: Metoprolol Succinate 50 mg XL Tab PO SCH (10:18)
[2017-07-08] MEDS: Calcium-Vit D 500 mg-200 Units Tab UD PO SCH (10:18)
[2017-07-08] MEDS: Megestrol Acetate 40 mg/ml Cup PO SCH (10:18)
--- NOTE | 2017-07-08 16:13 | CP.PCM.PN ---
Subjective - Date & Time of Evaluation Date of Evaluation: 07/08/17 Time of Evaluation: 16:10 - Subjective Subjective: heart rate is controlled. will start amiodarone 200mg daily tomorrow. Objective - Vital Signs/Intake and Output Vital Signs (last 24 hours): Temp Pulse Resp BP Pulse Ox 97.5 F L 72 20 122/66 99 07/08/17 07:44 07/08/17 10:18 07/08/17 07:44 07/08/17 10:18 07/08/17 07:44 Intake and Output: 07/08/17 07/08/17 06:59 18:59 Intake Total 250 Balance 250 - Medications Medications: Current Medications Acetaminophen (Tylenol 325mg Tab) 650 mg PO Q6 PRN PRN Reason: Pain, Mild (1-3) Last Admin: 07/07/17 01:52 Dose: 650 mg Alendronate Sodium (Fosamax) 70 mg PO QWK [facility] Amiodarone HCl (Cordarone) 400 mg PO BID [facility] Stop: 07/08/17 17:00 Last Admin: 07/08/17 10:16 Dose: 400 mg Aspirin (Aspirin Chewable) 81 mg PO DAILY [facility] Last Admin: 07/08/17 10:15 Dose: 81 mg Calcium/Vitamin D (Oyster Shell Calcium/Vitamin D 500 Mg-200 Iu) 1 tab PO DAILY [facility] Last Admin: 07/08/17 10:18 Dose: 1 tab Diltiazem HCl (Cardizem Cd) 180 mg PO DAILY [facility] Last Admin: 07/08/17 10:16 Dose: 180 mg Docusate Sodium (Colace) 100 mg PO BID [facility] Last Admin: 07/08/17 10:16 Dose: 100 mg Enoxaparin Sodium (Lovenox) 40 mg SC DAILY [facility] PRN Reason: Protocol Last Admin: 07/08/17 10:17 Dose: 40 mg Ferrous Sulfate (Feosol Liq) 300 mg PO TID [facility] Last Admin: 07/08/17 10:17 Dose: 300 mg Sodium Chloride (Sodium Chloride 0.9%) 1,000 mls @ 50 mls/hr IV .Q20H [facility] Stop: 07/08/17 16:46 Last Admin: 07/07/17 19:59 Dose: Not Given Isosorbide Mononitrate (Imdur Er) 30 mg PO DAILY [facility] Levofloxacin (Levaquin) 500 mg PO DAILY@1700 [facility] PRN Reason: Protocol Last Admin: 07/07/17 16:19 Dose: 500 mg Megestrol Acetate (Megace) 400 mg PO DAILY [facility] Last Admin: 07/08/17 10:18 Dose: 400 mg Metoprolol Succinate (Toprol Xl) 50 mg PO DAILY [facility] Last Admin: 07/08/17 10:18 Dose: 50 mg - Labs Labs: 07/07/17 05:50 07/07/17 05:50 PT 12.9 Seconds (9.8-13.1) 07/01/17 15:20 INR 1.2 (0.9-1.2) 07/01/17 15:20 APTT 31.5 Seconds (25.6-37.1) 07/01/17 15:20 Assessment and Plan (1) Atrial fibrillation Status: Acute
[2017-07-08] MEDS: levoFLOXacin 500 MG TAB PO SCH (17:07)
[2017-07-08] MEDS: Sodium Chloride 0.9% 1,000 ML IV SCH (17:08)
[2017-07-08] MEDS: Lidocaine 5% Patch TD SCH (18:43)
[2017-07-09] MEDS: Lidocaine 5% Patch TD SCH (07:59)
[2017-07-09] MEDS: Enoxaparin 40 mg Syringe SC SCH (07:59)
[2017-07-09] MEDS: diltiaZEM 180 mg/24 Hours CD Cap PO SCH (08:00)
[2017-07-09] MEDS: Ferrous Sulfate 300 mg/5 mL Liq UD PO SCH ×3 (08:00→16:38)
[2017-07-09] MEDS: Metoprolol Succinate 50 mg XL Tab PO SCH (08:02)
[2017-07-09] MEDS: Megestrol Acetate 40 mg/ml Cup PO SCH (08:02)
[2017-07-09] MEDS: Calcium-Vit D 500 mg-200 Units Tab UD PO SCH (08:02)
--- NOTE | 2017-07-09 14:06 | CP.CCUPN ---
CCU Subjective - Physician Review Events Since Last Encounter (Free Text): 07/09/17 14:02 86 YOF who was transferred from ICU on 07/07/17, now has SOB , and tachypnic and on 2 L N/C oxy sat is 88%. Pt was in ICU with rapid afib, she was transferred after her rate was controlled . A quick EKG just done and she in SR , no CP, , BP is 157/86. no cough , no fever. Pt is on PO cardizem and amiodorone and just givem 40 mg IV lasix. CXR just done, and I reviewed the film she has bilateral pulm congestion, causing SOB. CCU Objective - Vital Signs / Intake & Output Vital Signs (Last 4 hours): Vital Signs Temp Pulse Resp BP Pulse Ox 07/09/17 13:36 156/82 H 07/09/17 13:30 97.4 F L 71 23 157/81 H 89 L 07/09/17 10:21 93 L - Physical Exam Head: Positive for: Normocephalic Pupils: Positive for: PERRL Extroacular Muscles: Positive for: EOMI Conjunctiva: Negative for: Icteric Neck: Positive for: Normal Range of Motion. Negative for: JVD Respiratory/Chest: Positive for: Clear to Auscultation, Rales. Negative for: Accessory Muscle Use Cardiovascular: Positive for: Murmurs, Normal S1, S2, Irregular Rhythm. Negative for: Regular Rate and Rhythm Abdomen: Positive for: Normal Bowel Sounds. Negative for: Tenderness, Distention, Mass/Organomegaly Upper Extremity: Positive for: Normal Inspection Lower Extremity: Positive for: Normal Inspection, Other (atrophy). Negative for : CALF TENDERNESS, Cyanosis Neurological: Positive for: GCS=15, Motor Func Grossly Intact Skin: Positive for: Warm, Dry. Negative for: Rashes Psychiatric: Positive for: Alert, Oriented x 3 - Medications Active Medications: Active Medications Generic Name Dose Route Start Last Admin Trade Name Freq PRN Reason Stop Dose Admin Acetaminophen 650 mg 07/04/17 01:19 07/08/17 17:53 Tylenol 325mg Tab PO 650 mg Q6 PRN Administration Pain, Mild (1-3) Alendronate Sodium 70 mg 07/02/17 23:20 Fosamax PO QWK [facility] Amiodarone HCl 200 mg 07/09/17 09:00 07/09/17 08:01 Cordarone PO 200 mg DAILY [facility] Administration Aspirin 81 mg 07/03/17 09:00 07/09/17 08:00 Aspirin Chewable PO 81 mg DAILY [facility] Administration Calcium/Vitamin D 1 tab 07/03/17 09:00 07/09/17 08:02 Oyster Shell Calcium/Vitamin D 500 Mg-200 Iu PO 1 tab DAILY [facility] Administration Diltiazem HCl 180 mg 07/04/17 11:15 07/09/17 08:00 Cardizem Cd PO 180 mg DAILY [facility] Administration Docusate Sodium 100 mg 07/04/17 18:15 07/09/17 08:01 Colace PO 100 mg BID [facility] Administration Enoxaparin Sodium 40 mg 07/06/17 09:00 07/09/17 07:59 Lovenox SC 40 mg DAILY [facility] Administration Protocol Ferrous Sulfate 300 mg 07/07/17 17:00 07/09/17 12:29 Feosol Liq PO 300 mg TID [facility] Administration Isosorbide Mononitrate 30 mg 07/03/17 09:00 Imdur Er PO DAILY [facility] Levofloxacin 500 mg 07/04/17 17:00 07/08/17 17:07 Levaquin PO 500 mg DAILY@1700 [facility] Administration Protocol Lidocaine 1 ea 07/08/17 18:30 07/09/17 07:59 Lidoderm TD 1 ea DAILY [facility] Administration Megestrol Acetate 400 mg 07/07/17 16:46 07/09/17 08:02 Megace PO 400 mg DAILY [facility] Administration Metoprolol Succinate 50 mg 07/04/17 09:00 07/09/17 08:02 Toprol Xl PO 50 mg DAILY [facility] Administration Tramadol HCl 50 mg 07/09/17 18:45 Ultram PO DAILY PRN Pain, severe (8-10) - Patient Studies Lab Studies: Microbiology Studies 07/07/17 08:40 MRSA Culture (Admit) - Final Naris MRSA NOT DETECTED EKG/Cardiology Studies: Cardiology / EKG Studies 07/09/17 EKG [ELECTROCARDIOGRAM] Stat Comment: Mode Of Transportation: Reason For Exam: labored breathing Fingerstick Blood Sugar Results: 100 Review of Systems - Review of Systems Systems not reviewed;Unavailable: Respiratory Distress - Constitutional Constitutional: Weakness - Cardiovascular Cardiovascular: Dyspnea, Edema - Respiratory Respiratory: Dyspnea, Chest Congestion - Gastrointestinal Gastrointestinal: As Per HPI Critical Care Progress Note - Nutrition Nutrition: Nutrition Category Date Time Status Heart Healthy Diet [DIET] Diets 07/04/17 Breakfast Active Assessment/Plan - Assessment and Plan (Free Text) Assessment: Resp distress: Pulm edema A fib, now in SR HTN CHF exacerbation. Plan: IV lasix 40 mg IV stat CXR and EKG ordered and reviewed Transferred to ICU for close monitoring BMP now and in am CXR in am Continue other meds, reviewed, including amiodorone and cardizem.
[2017-07-09 14:33] LABS: HEMOGLOBIN 8.3 g/dL (12.0-16.0); MEAN CELL VOLUME 102.4 fl (81.0-99.0); MEAN CORPUSCULAR HEMOGLOBIN 32.7 pg (27.0-31.0); MEAN CORPUSCULAR HGB CONC 31.9 g/dL (33.0-37.0); RBC 2.55 Mil/uL (3.80-5.20); RED CELL DISTRIBUTION WIDTH 18.4 % (11.5-14.5); WHITE BLOOD COUNT 5.5 K/uL (4.8-10.8)
[2017-07-09] MEDS ORDERED: Nitroglycerin 50mg in D5W 50 MG/250 ML BOTTLE IV ONE (14:39)
--- NOTE | 2017-07-09 14:44 | CP.PCM.PN ---
Subjective - Date & Time of Evaluation Date of Evaluation: 07/08/17 Time of Evaluation: 10:10 - Subjective Subjective: Patient remains stable Has slight back pain Has no chest pain Objective - Vital Signs/Intake and Output Vital Signs (last 24 hours): Temp Pulse Resp BP Pulse Ox 97.4 F L 71 23 156/82 H 89 L 07/09/17 13:30 07/09/17 13:30 07/09/17 13:30 07/09/17 13:36 07/09/17 13:30 - Medications Medications: Current Medications Acetaminophen (Tylenol 325mg Tab) 650 mg PO Q6 PRN PRN Reason: Pain, Mild (1-3) Last Admin: 07/08/17 17:53 Dose: 650 mg Alendronate Sodium (Fosamax) 70 mg PO QWK [facility] Amiodarone HCl (Cordarone) 200 mg PO DAILY [facility] Last Admin: 07/09/17 08:01 Dose: 200 mg Aspirin (Aspirin Chewable) 81 mg PO DAILY [facility] Last Admin: 07/09/17 08:00 Dose: 81 mg Calcium/Vitamin D (Oyster Shell Calcium/Vitamin D 500 Mg-200 Iu) 1 tab PO DAILY [facility] Last Admin: 07/09/17 08:02 Dose: 1 tab Diltiazem HCl (Cardizem Cd) 180 mg PO DAILY [facility] Last Admin: 07/09/17 08:00 Dose: 180 mg Docusate Sodium (Colace) 100 mg PO BID [facility] Last Admin: 07/09/17 08:01 Dose: 100 mg Enoxaparin Sodium (Lovenox) 40 mg SC DAILY [facility] PRN Reason: Protocol Last Admin: 07/09/17 07:59 Dose: 40 mg Ferrous Sulfate (Feosol Liq) 300 mg PO TID [facility] Last Admin: 07/09/17 12:29 Dose: 300 mg Nitroglycerin/Dextrose (Nitroglycerin 50 Mg/250 Ml D5w) 50 mg in 250 mls @ 3 mls/hr IV .Q24H ONE; 10 MCG/MIN PRN Reason: Protocol Stop: 07/10/17 14:38 Isosorbide Mononitrate (Imdur Er) 30 mg PO DAILY [facility] Levofloxacin (Levaquin) 500 mg PO DAILY@1700 [facility] PRN Reason: Protocol Last Admin: 07/08/17 17:07 Dose: 500 mg Lidocaine (Lidoderm) 1 ea TD DAILY [facility] Last Admin: 07/09/17 07:59 Dose: 1 ea Megestrol Acetate (Megace) 400 mg PO DAILY [facility] Last Admin: 07/09/17 08:02 Dose: 400 mg Metoprolol Succinate (Toprol Xl) 50 mg PO DAILY [facility] Last Admin: 07/09/17 08:02 Dose: 50 mg Tramadol HCl (Ultram) 50 mg PO DAILY PRN PRN Reason: Pain, severe (8-10) - Labs Labs: 07/07/17 05:50 07/07/17 05:50 PT 12.9 Seconds (9.8-13.1) 07/01/17 15:20 INR 1.2 (0.9-1.2) 07/01/17 15:20 APTT 31.5 Seconds (25.6-37.1) 07/01/17 15:20 - Head Exam Head Exam: NORMAL INSPECTION - Eye Exam Eye Exam: Normal appearance - ENT Exam ENT Exam: Mucous Membranes Moist - Respiratory Exam Respiratory Exam: Decreased Breath Sounds - Cardiovascular Exam Cardiovascular Exam: REGULAR RHYTHM - GI/Abdominal Exam GI & Abdominal Exam: Normal Bowel Sounds Assessment and Plan (1) Acute exacerbation of CHF (congestive heart failure) Status: Acute (2) Atrial fibrillation Status: Acute (3) Non-STEMI (non-ST elevated myocardial infarction) Status: Acute (4) Anemia Status: Acute - Assessment and Plan (Free Text) Plan: Cont meds Cont tx pain meds prn.
--- NOTE | 2017-07-09 14:47 | CP.PCM.PN ---
Subjective - Date & Time of Evaluation Date of Evaluation: 07/09/17 Time of Evaluation: 14:44 - Subjective Subjective: Noted to have labored breathing around 11am. Exam showed decreased breath sounds bilaterally Has no chest pain or SOB. She had a lot of back pain last night and was given Tramadol. Objective - Vital Signs/Intake and Output Vital Signs (last 24 hours): Temp Pulse Resp BP Pulse Ox 97.4 F L 71 23 156/82 H 89 L 07/09/17 13:30 07/09/17 13:30 07/09/17 13:30 07/09/17 13:36 07/09/17 13:30 - Medications Medications: Current Medications Acetaminophen (Tylenol 325mg Tab) 650 mg PO Q6 PRN PRN Reason: Pain, Mild (1-3) Last Admin: 07/08/17 17:53 Dose: 650 mg Alendronate Sodium (Fosamax) 70 mg PO QWK [facility] Amiodarone HCl (Cordarone) 200 mg PO DAILY [facility] Last Admin: 07/09/17 08:01 Dose: 200 mg Aspirin (Aspirin Chewable) 81 mg PO DAILY [facility] Last Admin: 07/09/17 08:00 Dose: 81 mg Calcium/Vitamin D (Oyster Shell Calcium/Vitamin D 500 Mg-200 Iu) 1 tab PO DAILY [facility] Last Admin: 07/09/17 08:02 Dose: 1 tab Diltiazem HCl (Cardizem Cd) 180 mg PO DAILY [facility] Last Admin: 07/09/17 08:00 Dose: 180 mg Docusate Sodium (Colace) 100 mg PO BID [facility] Last Admin: 07/09/17 08:01 Dose: 100 mg Enoxaparin Sodium (Lovenox) 40 mg SC DAILY [facility] PRN Reason: Protocol Last Admin: 07/09/17 07:59 Dose: 40 mg Ferrous Sulfate (Feosol Liq) 300 mg PO TID [facility] Last Admin: 07/09/17 12:29 Dose: 300 mg Nitroglycerin/Dextrose (Nitroglycerin 50 Mg/250 Ml D5w) 50 mg in 250 mls @ 3 mls/hr IV .Q24H ONE; 10 MCG/MIN PRN Reason: Protocol Stop: 07/10/17 14:38 Isosorbide Mononitrate (Imdur Er) 30 mg PO DAILY [facility] Levofloxacin (Levaquin) 500 mg PO DAILY@1700 [facility] PRN Reason: Protocol Last Admin: 07/08/17 17:07 Dose: 500 mg Lidocaine (Lidoderm) 1 ea TD DAILY [facility] Last Admin: 07/09/17 07:59 Dose: 1 ea Megestrol Acetate (Megace) 400 mg PO DAILY [facility] Last Admin: 07/09/17 08:02 Dose: 400 mg Metoprolol Succinate (Toprol Xl) 50 mg PO DAILY [facility] Last Admin: 07/09/17 08:02 Dose: 50 mg Tramadol HCl (Ultram) 50 mg PO DAILY PRN PRN Reason: Pain, severe (8-10) - Labs Labs: 07/07/17 05:50 07/07/17 05:50 PT 12.9 Seconds (9.8-13.1) 07/01/17 15:20 INR 1.2 (0.9-1.2) 07/01/17 15:20 APTT 31.5 Seconds (25.6-37.1) 07/01/17 15:20 - Head Exam Head Exam: NORMAL INSPECTION - Eye Exam Eye Exam: Normal appearance - Respiratory Exam Respiratory Exam: Decreased Breath Sounds, Rales - Cardiovascular Exam Cardiovascular Exam: REGULAR RHYTHM - GI/Abdominal Exam GI & Abdominal Exam: Normal Bowel Sounds Assessment and Plan (1) Acute exacerbation of CHF (congestive heart failure) Status: Acute (2) Atrial fibrillation Status: Acute (3) Non-STEMI (non-ST elevated myocardial infarction) Status: Acute (4) Anemia Status: Acute - Assessment and Plan (Free Text) Plan: Start IV lasix CXR EKG probnp cbc cmp discussed with Intensiv[facility] Dr Chin. will transfer patient to ICU.
[2017-07-09 14:49] LABS: B-TYPE NATRIURETIC PEPTIDE 4830 pg/ml (0-900)
[2017-07-09 15:18] LABS: ALB/GLOB RATIO 0.6 (1.0-2.1); ALBUMIN 3.6 g/dL (3.5-5.0); ALT/SGPT 26 U/L (9-52); AST/SGOT 47 U/L (14-36); BLOOD UREA NITROGEN 22 mg/dl (7-17); CALCIUM 9.8 mg/dL (8.4-10.2); GFR AFRICAN-AMERICAN > 60; GFR NON-AFRICAN AMERICAN > 60
[2017-07-09] MEDS ORDERED: Morphine 4 MG/ML VIAL IVP ONE (16:09)
[2017-07-09] MEDS ORDERED: Albuterol-Ipratrop 3 mg / 0.5 (3 ml) UD INH PRN (16:11)
--- NOTE | 2017-07-09 17:13 | CARD ---
APPROVED REPORT EKG Measurement Heart [id number] <Conclusion> Normal sinus rhythm Normal ECG
[2017-07-10 05:26] LABS: MEAN CELL VOLUME 101.5 fl (81.0-99.0); MEAN CORPUSCULAR HEMOGLOBIN 33.3 pg (27.0-31.0); MEAN CORPUSCULAR HGB CONC 32.8 g/dL (33.0-37.0); RBC 2.41 Mil/uL (3.80-5.20); WHITE BLOOD COUNT 5.4 K/uL (4.8-10.8)
[2017-07-10 05:38] LABS: BLOOD UREA NITROGEN 25 mg/dl (7-17); CALCIUM 9.5 mg/dL (8.4-10.2); GFR AFRICAN-AMERICAN > 60; GFR NON-AFRICAN AMERICAN > 60
--- NOTE | 2017-07-10 08:09 | RAD ---
HISTORY: labored breathing COMPARISON: Portable chest 07/01/2017. FINDINGS: LUNGS: Patient rotated toward the right somewhat accentuating the left hilar vascular markings. Underlying developing infiltrate or atelectasis not excluded at the mid to inferior left lung zones with mild chronic interstitial pulmonary changes again evident bilaterally. Pulmonary vascular may be increasing in the interval and clinically correlate for potential pulmonary venous congestion. PLEURA: No right pleural effusion. No pneumothorax bilaterally. Trace left pleural effusion not excluded. CARDIOVASCULAR: Cardiomegaly appears stable. OSSEOUS STRUCTURES: No significant abnormalities. VISUALIZED UPPER ABDOMEN: Normal. OTHER FINDINGS: None. IMPRESSION: Potential developing CHF with early infiltrate atelectasis the mid to inferior left lung zone not excluded. Underlying chronic interstitial pulmonary changes appear stable.
[2017-07-10] MEDS: Metoprolol Succinate 50 mg XL Tab PO SCH (09:06)
[2017-07-10] MEDS: Calcium-Vit D 500 mg-200 Units Tab UD PO SCH (09:06)
[2017-07-10] MEDS: Lidocaine 5% Patch TD SCH (09:08)
[2017-07-10] MEDS: Enoxaparin 40 mg Syringe SC SCH (09:08)
[2017-07-10] MEDS: Megestrol Acetate 40 mg/ml Cup PO SCH (09:10)
[2017-07-10] MEDS: Ferrous Sulfate 300 mg/5 mL Liq UD PO SCH ×3 (09:10→17:44)
--- NOTE | 2017-07-10 10:28 | CP.CCUPN ---
CCU Subjective - Physician Review Events Since Last Encounter (Free Text): 07/10/17 16:56 The patient was Seen/interviewed and examined by me at the bedside during ICU round, Medical records reviewed and Management issues were discussed and formulated with the house staff. Events reviewed 86 Years old Female who was transferred from ICU on 07/07/17, back to ICU on for rapid A-Fib/ flutter, worsening SOB Heart rate was controlled with PO Cardizem, Toprol XL and amiodorone Also received Lasix 20mg given IVP, duoneb nebulizer and 16 fr herrera inserted and > 1000 cc urine output. This morning he feels better and is hemodynamically stable, denies any chest pain or SOB Afebrile, NSR on the monitor Last 24H I&O 354/1650 This morning labs revealed no Leucocytosis, H/H Stable, mild worsening renal function BUN/Cr up to 25/0.7 CCU Objective - Vital Signs / Intake & Output Vital Signs (Last 4 hours): Vital Signs Pulse Resp BP Pulse Ox 07/10/17 09:07 110/55 L 07/10/17 09:06 70 110/50 L 07/10/17 06:30 59 L 18 121/60 100 Intake and Output (Last 8hrs): Intake & Output 07/09/17 07/10/17 07/10/17 22:59 06:59 14:59 Intake Total 112 242 Output Total 1000 650 Balance -888 -408 Weight 74 lb Intake: IV 12 42 Oral 100 200 Tube Feeding 0 Output: Urine 1000 650 Urethral (Herrera) 1000 650 - Physical Exam Head: Positive for: Normocephalic Pupils: Positive for: PERRL Extroacular Muscles: Positive for: EOMI Conjunctiva: Negative for: Icteric Neck: Positive for: Normal Range of Motion. Negative for: JVD Respiratory/Chest: Positive for: Clear to Auscultation, Rales. Negative for: Accessory Muscle Use Cardiovascular: Positive for: Murmurs, Normal S1, S2, Irregular Rhythm. Negative for: Regular Rate and Rhythm Abdomen: Positive for: Normal Bowel Sounds. Negative for: Tenderness, Distention, Mass/Organomegaly Upper Extremity: Positive for: Normal Inspection Lower Extremity: Positive for: Normal Inspection, Other (atrophy). Negative for : CALF TENDERNESS, Cyanosis Neurological: Positive for: GCS=15, Motor Func Grossly Intact Skin: Positive for: Warm, Dry. Negative for: Rashes Psychiatric: Positive for: Alert, Oriented x 3 - Medications Active Medications: Active Medications Generic Name Dose Route Start Last Admin Trade Name Freq PRN Reason Stop Dose Admin Acetaminophen 650 mg 07/04/17 01:19 07/08/17 17:53 Tylenol 325mg Tab PO 650 mg Q6 PRN Administration Pain, Mild (1-3) Albuterol/Ipratropium 3 ml 07/09/17 16:11 07/09/17 16:23 Duoneb 3 Mg/0.5 Mg (3 Ml) Ud INH 3 ml RQ4 PRN Administration Shortness of Breath Alendronate Sodium 70 mg 07/02/17 23:20 07/10/17 09:09 Fosamax PO 70 mg QWK [facility] Administration Amiodarone HCl 200 mg 07/10/17 13:00 Cordarone PO DAILY@1300 [facility] Aspirin 81 mg 07/03/17 09:00 07/10/17 09:09 Aspirin Chewable PO 81 mg DAILY [facility] Administration Calcium/Vitamin D 1 tab 07/03/17 09:00 07/10/17 09:06 Oyster Shell Calcium/Vitamin D 500 Mg-200 Iu PO 1 tab DAILY [facility] Administration Diltiazem HCl 180 mg 07/10/17 17:00 Cardizem Cd PO QD5 [facility] Docusate Sodium 100 mg 07/04/17 18:15 07/10/17 09:07 Colace PO 100 mg BID [facility] Administration Enoxaparin Sodium 40 mg 07/06/17 09:00 07/10/17 09:08 Lovenox SC 40 mg DAILY [facility] Administration Protocol Ferrous Sulfate 300 mg 07/07/17 17:00 07/10/17 09:10 Feosol Liq PO 300 mg TID [facility] Administration Furosemide 20 mg 07/09/17 17:00 07/10/17 09:07 Lasix IVP 20 mg BID [facility] Administration Nitroglycerin/Dextrose 50 mg in 250 mls @ 3 mls/hr 07/09/17 14:39 07/09/17 15 :30 Nitroglycerin 50 Mg/250 Ml D5w IV 07/10/17 14:38 3 mls/hr .Q24H ONE Infusion Protocol 10 MCG/MIN Isosorbide Mononitrate 30 mg 07/03/17 09:00 Imdur Er PO DAILY [facility] Levofloxacin 500 mg 07/04/17 17:00 07/08/17 17:07 Levaquin PO 500 mg DAILY@1700 [facility] Administration Protocol Lidocaine 1 ea 07/08/17 18:30 07/10/17 09:08 Lidoderm TD 1 ea DAILY [facility] Administration Megestrol Acetate 400 mg 07/07/17 16:46 07/10/17 09:10 Megace PO 400 mg DAILY [facility] Administration Metoprolol Succinate 50 mg 07/04/17 09:00 07/10/17 09:06 Toprol Xl PO 50 mg DAILY [facility] Administration Tramadol HCl 50 mg 07/09/17 18:45 Ultram PO DAILY PRN Pain, severe (8-10) - Patient Studies Lab Studies: Microbiology Studies 07/07/17 08:40 MRSA Culture (Admit) - Final Naris MRSA NOT DETECTED Lab Studies 07/10/17 07/10/17 07/09/17 Range/Units 04:35 04:35 14:45 WBC 5.4 (4.8-10.8) K/uL RBC 2.41 L (3.80-5.20) Mil/uL Hgb 8.0 L (12.0-16.0) g/dL Hct 24.5 L (34.0-47.0) % MCV 101.5 H (81.0-99.0) fl MCH 33.3 H (27.0-31.0) pg MCHC 32.8 L (33.0-37.0) g/dL RDW 18.0 H (11.5-14.5) % Plt Count 202 (130-400) K/uL Sodium 149 H 148 (132-148) mmol/l Potassium 4.1 4.9 (3.6-5.0) MMOL/L Chloride 95 L 99 (98-107) mmol/L Carbon Dioxide 40 H* 34 H (22-30) mmol/L Anion Gap 18 20 (10-20) BUN 25 H 22 H (7-17) mg/dl Creatinine 0.7 0.7 (0.7-1.2) mg/dl Est GFR ( Amer) > 60 > 60 Est GFR (Non-Af Amer) > 60 > 60 Random Glucose 125 H 141 H (65-105) mg/dL Calcium 9.5 9.8 (8.4-10.2) mg/dL Total Bilirubin 0.5 (0.2-1.3) mg/dl AST 47 H D (14-36) U/L ALT 26 (9-52) U/L Alkaline Phosphatase 84 (38-126) U/L NT-Pro-B Natriuret Pep 4830 H (0-900) pg/ml Total Protein 9.4 H (6.3-8.2) G/DL Albumin 3.6 (3.5-5.0) g/dL Globulin 5.8 H (2.2-3.9) gm/dL Albumin/Globulin Ratio 0.6 L (1.0-2.1) 07/09/17 Range/Units 14:15 WBC 5.5 (4.8-10.8) K/uL RBC 2.55 L (3.80-5.20) Mil/uL Hgb 8.3 L (12.0-16.0) g/dL Hct 26.1 L (34.0-47.0) % MCV 102.4 H (81.0-99.0) fl MCH 32.7 H (27.0-31.0) pg MCHC 31.9 L (33.0-37.0) g/dL RDW 18.4 H (11.5-14.5) % Plt Count 244 (130-400) K/uL Sodium (132-148) mmol/l Potassium (3.6-5.0) MMOL/L Chloride (98-107) mmol/L Carbon Dioxide (22-30) mmol/L Anion Gap (10-20) BUN (7-17) mg/dl Creatinine (0.7-1.2) mg/dl Est GFR ( Amer) Est GFR (Non-Af Amer) Random Glucose (65-105) mg/dL Calcium (8.4-10.2) mg/dL Total Bilirubin (0.2-1.3) mg/dl AST (14-36) U/L ALT (9-52) U/L Alkaline Phosphatase (38-126) U/L NT-Pro-B Natriuret Pep (0-900) pg/ml Total Protein (6.3-8.2) G/DL Albumin (3.5-5.0) g/dL Globulin (2.2-3.9) gm/dL Albumin/Globulin Ratio (1.0-2.1) Laboratory Results - last 24 hr 07/09/17 07/09/17 07/10/17 14:15 14:45 04:35 WBC 5.5 5.4 RBC 2.55 L 2.41 L Hgb 8.3 L 8.0 L Hct 26.1 L 24.5 L MCV 102.4 H 101.5 H MCH 32.7 H 33.3 H MCHC 31.9 L 32.8 L RDW 18.4 H 18.0 H Plt Count 244 202 Sodium 148 Potassium 4.9 Chloride 99 Carbon Dioxide 34 H Anion Gap 20 BUN 22 H Creatinine 0.7 Est GFR ( Amer) > 60 Est GFR (Non-Af Amer) > 60 Random Glucose 141 H Calcium 9.8 Total Bilirubin 0.5 AST 47 H D ALT 26 Alkaline Phosphatase 84 NT-Pro-B Natriuret Pep 4830 H Total Protein 9.4 H Albumin 3.6 Globulin 5.8 H Albumin/Globulin Ratio 0.6 L 07/10/17 04:35 WBC RBC Hgb Hct MCV MCH MCHC RDW Plt Count Sodium 149 H Potassium 4.1 Chloride 95 L Carbon Dioxide 40 H* Anion Gap 18 BUN 25 H Creatinine 0.7 Est GFR ( Amer) > 60 Est GFR (Non-Af Amer) > 60 Random Glucose 125 H Calcium 9.5 Total Bilirubin AST ALT Alkaline Phosphatase NT-Pro-B Natriuret Pep Total Protein Albumin Globulin Albumin/Globulin Ratio Fingerstick Blood Sugar Results: 100 Critical Care Progress Note - Nutrition Nutrition: Nutrition Category Date Time Status Heart Healthy Diet [DIET] Diets 07/04/17 Breakfast Active Assessment/Plan (1) Acute exacerbation of CHF (congestive heart failure) Current Visit: Yes Status: Acute (2) Atrial fibrillation Current Visit: Yes Status: Acute (3) Bronchitis Current Visit: Yes Status: Acute (4) Dyspnea Current Visit: Yes Status: Acute (5) Non-STEMI (non-ST elevated myocardial infarction) Current Visit: Yes Status: Acute (6) Shortness of breath Current Visit: Yes Status: Acute (7) DVT prophylaxis Current Visit: No Status: Acute Comment: Lovenox 40mg sc daily - Assessment and Plan (Free Text) Assessment: Acute Respiratory insuffiency Acute Pulm edema, CHF exacerbation. R/O Pneumonia A fib, now in NSR HTN Plan: Continue with SICU for hemodynamic and Respiratory monitoring Monitor Respiratory status HR control with PO Toprol XL, amiodorone and cardizem. PO Levaquine IV diuresis with lasix 20 mg IV BID Wean NTG drip BMP Monitor renaL FUNCTION CXR and EKG in am BD nebs Q 6H PRN
--- NOTE | 2017-07-10 17:13 | CP.PCM.PN ---
Subjective - Date & Time of Evaluation Date of Evaluation: 07/10/17 Time of Evaluation: 17:00 - Subjective Subjective: patient ransferred to ICU for dyspnea. currently improved. on medical therapy Objective - Vital Signs/Intake and Output Vital Signs (last 24 hours): Temp Pulse Resp BP Pulse Ox 97.8 F 72 74 H 126/65 100 07/10/17 12:00 07/10/17 13:15 07/10/17 13:00 07/10/17 13:15 07/10/17 13:00 Intake and Output: 07/10/17 07/10/17 06:59 18:59 Intake Total 348 143 Output Total 650 300 Balance -302 -157 - Medications Medications: Current Medications Acetaminophen (Tylenol 325mg Tab) 650 mg PO Q6 PRN PRN Reason: Pain, Mild (1-3) Last Admin: 07/08/17 17:53 Dose: 650 mg Albuterol/Ipratropium (Duoneb 3 Mg/0.5 Mg (3 Ml) Ud) 3 ml INH RQ4 PRN PRN Reason: Shortness of Breath Last Admin: 07/09/17 16:23 Dose: 3 ml Alendronate Sodium (Fosamax) 70 mg PO QWK [facility] Last Admin: 07/10/17 09:09 Dose: 70 mg Amiodarone HCl (Cordarone) 200 mg PO DAILY@1300 [facility] Last Admin: 07/10/17 13:15 Dose: 200 mg Aspirin (Aspirin Chewable) 81 mg PO DAILY [facility] Last Admin: 07/10/17 09:09 Dose: 81 mg Calcium/Vitamin D (Oyster Shell Calcium/Vitamin D 500 Mg-200 Iu) 1 tab PO DAILY [facility] Last Admin: 07/10/17 09:06 Dose: 1 tab Diltiazem HCl (Cardizem Cd) 180 mg PO QD5 [facility] Docusate Sodium (Colace) 100 mg PO BID [facility] Last Admin: 07/10/17 09:07 Dose: 100 mg Enoxaparin Sodium (Lovenox) 40 mg SC DAILY [facility] PRN Reason: Protocol Last Admin: 07/10/17 09:08 Dose: 40 mg Ferrous Sulfate (Feosol Liq) 300 mg PO TID [facility] Last Admin: 07/10/17 13:16 Dose: 300 mg Furosemide (Lasix) 20 mg IVP BID [facility] Last Admin: 07/10/17 09:07 Dose: 20 mg Isosorbide Mononitrate (Imdur Er) 30 mg PO DAILY [facility] Lidocaine (Lidoderm) 1 ea TD DAILY [facility] Last Admin: 07/10/17 09:08 Dose: 1 ea Megestrol Acetate (Megace) 400 mg PO DAILY [facility] Last Admin: 07/10/17 09:10 Dose: 400 mg Metoprolol Succinate (Toprol Xl) 50 mg PO DAILY [facility] Last Admin: 07/10/17 09:06 Dose: 50 mg Tramadol HCl (Ultram) 50 mg PO DAILY PRN PRN Reason: Pain, severe (8-10) - Labs Labs: 07/10/17 04:35 07/10/17 04:35 PT 12.9 Seconds (9.8-13.1) 07/01/17 15:20 INR 1.2 (0.9-1.2) 07/01/17 15:20 APTT 31.5 Seconds (25.6-37.1) 07/01/17 15:20 - Constitutional Appears: Non-toxic - Head Exam Head Exam: NORMAL INSPECTION - Eye Exam Eye Exam: Normal appearance - ENT Exam ENT Exam: Mucous Membranes Moist - Neck Exam Neck Exam: Full ROM - Respiratory Exam Respiratory Exam: Decreased Breath Sounds - Cardiovascular Exam Cardiovascular Exam: REGULAR RHYTHM - GI/Abdominal Exam GI & Abdominal Exam: Normal Bowel Sounds - Rectal Exam Rectal Exam: Deferred - Extremities Exam Extremities Exam: absent: Pedal Edema - Back Exam Back Exam: NORMAL INSPECTION - Neurological Exam Neurological Exam: Alert - Psychiatric Exam Psychiatric exam: Normal Affect - Skin Skin Exam: Normal Color Assessment and Plan (1) Atrial fibrillation Assessment & Plan: will maintain amiodarone. Toprol, cardizem. rate controlled. continue diuresis. Status: Acute
[2017-07-10] MEDS: diltiaZEM 180 mg/24 Hours CD Cap PO SCH (17:43)
[2017-07-10] MEDS: levoFLOXacin 500 MG TAB PO SCH (17:49)
--- NOTE | 2017-07-10 18:22 | CARD ---
APPROVED REPORT EKG Measurement Heart [id number] <Conclusion> Normal sinus rhythm Voltage criteria for left ventricular hypertrophy Nonspecific T wave abnormality Abnormal ECG
--- NOTE | 2017-07-11 08:09 | CP.CCUPN ---
CCU Subjective - Physician Review Events Since Last Encounter (Free Text): 07/11/17 17:15 The patient was Seen/interviewed and examined by me at the bedside, Medical records reviewed and Management issues were discussed and formulated with the house staff. Events reviewed 86 Years old Female who was transferred from ICU on 07/07/17, back to ICU on for rapid A-Fib/ flutter, worsening SOB Heart rate was controlled with PO Cardizem, Toprol XL and amiodorone Also received Lasix 20mg given IVP, duoneb nebulizer and 16 fr herrera inserted and > 1000 cc urine output. This morning she feels better and is hemodynamically stable, denies any chest pain or SOB OFF NTG drip Afebrile, A Fib on the monitor Last 24H I&O 360/800 Labs revealed no Leucocytosis, H/H Stable, mild worsening renal function BUN/Cr up to 25/0.7 CCU Objective - Vital Signs / Intake & Output Vital Signs (Last 4 hours): Vital Signs Pulse Resp BP Pulse Ox 07/11/17 06:00 87 17 125/57 L 100 07/11/17 05:00 81 22 105/50 L 100 Intake and Output (Last 8hrs): Intake & Output 07/10/17 07/11/17 07/11/17 22:59 06:59 14:59 Intake Total 216 0 Output Total 100 400 Balance 116 -400 Intake: IV 16 Oral 200 0 Output: Urine 100 400 Urethral (Herrera) 100 400 - Physical Exam Head: Positive for: Normocephalic Pupils: Positive for: PERRL Extroacular Muscles: Positive for: EOMI Conjunctiva: Negative for: Icteric Neck: Positive for: Normal Range of Motion. Negative for: JVD Respiratory/Chest: Positive for: Clear to Auscultation, Rales. Negative for: Accessory Muscle Use Cardiovascular: Positive for: Murmurs, Normal S1, S2, Irregular Rhythm. Negative for: Regular Rate and Rhythm Abdomen: Positive for: Normal Bowel Sounds. Negative for: Tenderness, Distention, Mass/Organomegaly Upper Extremity: Positive for: Normal Inspection Lower Extremity: Positive for: Normal Inspection, Other (atrophy). Negative for : CALF TENDERNESS, Cyanosis Neurological: Positive for: GCS=15, Motor Func Grossly Intact Skin: Positive for: Warm, Dry. Negative for: Rashes Psychiatric: Positive for: Alert, Oriented x 3 - Medications Active Medications: Active Medications Generic Name Dose Route Start Last Admin Trade Name Freq PRN Reason Stop Dose Admin Acetaminophen 650 mg 07/04/17 01:19 07/08/17 17:53 Tylenol 325mg Tab PO 650 mg Q6 PRN Administration Pain, Mild (1-3) Albuterol/Ipratropium 3 ml 07/09/17 16:11 07/09/17 16:23 Duoneb 3 Mg/0.5 Mg (3 Ml) Ud INH 3 ml RQ4 PRN Administration Shortness of Breath Alendronate Sodium 70 mg 07/02/17 23:20 07/10/17 09:09 Fosamax PO 70 mg QWK [facility] Administration Amiodarone HCl 200 mg 07/10/17 13:00 07/10/17 13:15 Cordarone PO 200 mg DAILY@1300 [facility] Administration Aspirin 81 mg 07/03/17 09:00 07/10/17 09:09 Aspirin Chewable PO 81 mg DAILY [facility] Administration Calcium/Vitamin D 1 tab 07/03/17 09:00 07/10/17 09:06 Oyster Shell Calcium/Vitamin D 500 Mg-200 Iu PO 1 tab DAILY [facility] Administration Diltiazem HCl 180 mg 07/10/17 17:00 07/10/17 17:43 Cardizem Cd PO 180 mg QD5 [facility] Administration Docusate Sodium 100 mg 07/04/17 18:15 07/10/17 17:43 Colace PO 100 mg BID [facility] Administration Enoxaparin Sodium 40 mg 07/06/17 09:00 07/10/17 09:08 Lovenox SC 40 mg DAILY [facility] Administration Protocol Ferrous Sulfate 300 mg 07/07/17 17:00 07/10/17 17:44 Feosol Liq PO 300 mg TID [facility] Administration Furosemide 20 mg 07/09/17 17:00 07/10/17 17:49 Lasix IVP 20 mg BID [facility] Administration Isosorbide Mononitrate 30 mg 07/03/17 09:00 Imdur Er PO DAILY [facility] Lidocaine 1 ea 07/08/17 18:30 07/10/17 09:08 Lidoderm TD 1 ea DAILY [facility] Administration Megestrol Acetate 400 mg 07/07/17 16:46 07/10/17 09:10 Megace PO 400 mg DAILY [facility] Administration Metoprolol Succinate 50 mg 07/04/17 09:00 07/10/17 09:06 Toprol Xl PO 50 mg DAILY [facility] Administration Tramadol HCl 50 mg 07/09/17 18:45 Ultram PO DAILY PRN Pain, severe (8-10) - Patient Studies Fingerstick Blood Sugar Results: 100 Critical Care Progress Note - Extremities/Vascular Does the Patient have a Central Venous Catheter?: No Does the Patient need a Central Venous Catheter?: No Does the Patient have a Herrera Catheter?: Yes Does the Patient need a Herrera Catheter?: No (Will remove today) - Nutrition Nutrition: Nutrition Category Date Time Status Heart Healthy Diet [DIET] Diets 07/04/17 Breakfast Active Assessment/Plan (1) Acute exacerbation of CHF (congestive heart failure) Current Visit: Yes Status: Acute (2) Atrial fibrillation Current Visit: Yes Status: Acute (3) Bronchitis Current Visit: Yes Status: Acute (4) Dyspnea Current Visit: Yes Status: Acute (5) Non-STEMI (non-ST elevated myocardial infarction) Current Visit: Yes Status: Acute (6) Shortness of breath Current Visit: Yes Status: Acute (7) DVT prophylaxis Current Visit: No Status: Acute Comment: Lovenox 40mg sc daily - Assessment and Plan (Free Text) Assessment: Acute Respiratory insuffiency secondary to Acute Pulmonary edema, CHF exacerbation. Bronchitis, R/O Pneumonia Non-STEMI (non-ST elevated myocardial infarction) A fib, now in NSR, S/P RVR Mild Azotemia HTN Plan: Continue with SICU for hemodynamic and Respiratory monitoring Off Amiodarone and Crdiazem drip Off NTG drip Monitor Respiratory status HR control with PO Toprol XL, amiodorone and cardizem. PO Levaquine IV diuresis with lasix 20 mg IV BID Supplemental Oxygen BMP Monitor renaL function CXR and EKG in am BD nebs Q 6H PRN Pt on Megace 400 mg PO daily or appetite stimulant DVT PPX: Lovenox 40 mg SC DAILY Stable for transfer to Telemetry
[2017-07-11] MEDS: Ferrous Sulfate 300 mg/5 mL Liq UD PO SCH ×3 (08:18→17:42)
[2017-07-11] MEDS: Megestrol Acetate 40 mg/ml Cup PO SCH (08:18)
[2017-07-11] MEDS: Lidocaine 5% Patch TD SCH (08:21)
[2017-07-11] MEDS: Calcium-Vit D 500 mg-200 Units Tab UD PO SCH (08:23)
[2017-07-11] MEDS: Enoxaparin 40 mg Syringe SC SCH (08:23)
[2017-07-11] MEDS: Metoprolol Succinate 50 mg XL Tab PO SCH (08:24)
--- NOTE | 2017-07-11 09:48 | PQF GENQUE ---
This form is a permanent part of the medical record 07/11/17 Dr. Paige Xiong, Please clarify the type of atrial fibrillation: >> Chronic >> Paroxysmal >> Permanent >> Persistent >> Other (please specify type) >> Clinically unable to determine >> Unknown Clarification of your documentation is requested to better reflect the severity of illness and intensity of treatment of your patient. Indicators present [] Specify: [] [] Specify: [] [] Specify: [] [] Specify: [] Location in the medical record that reflects the above clinical findings: [] Treatment Provided: [] PHYSICIAN'S RESPONSE Based on your medical judgment of the clinical indicators outlined above please clarify the following: [] Practitioner response [] If unable to determine, please check the box, sign and date. Present On Admission (POA) Indicator: [] Present at the time of admission [] Not present at the time of admission [] Clinically Undetermined In responding to this query, please exercise your independent professional judgment. The fact that a question is asked does not imply that any particular answer is desired or expected. Thank you for your clarification on this documentation. If you have any questions please call:ext [phone] * Thank you, Shannan Jain RN [facility]
--- NOTE | 2017-07-11 17:21 | CP.PCM.PN ---
Subjective - Date & Time of Evaluation Date of Evaluation: 07/11/17 Time of Evaluation: 09:55 - Subjective Subjective: Patient seen and examined at bedside with attending-Dr. Avelar. Patient awake, lethargic with mild respiratory distress, on supplemental O2 via nasal cannula. Objective - Vital Signs/Intake and Output Vital Signs (last 24 hours): Temp Pulse Resp BP Pulse Ox 97.5 F L 77 25 H 98/62 L 100 07/11/17 16:00 07/11/17 16:00 07/11/17 16:00 07/11/17 16:00 07/11/17 16:00 Intake and Output: 07/11/17 07/11/17 06:59 18:59 Intake Total 100 250 Output Total 400 Balance -300 250 - Medications Medications: Current Medications Acetaminophen (Tylenol 325mg Tab) 650 mg PO Q6 PRN PRN Reason: Pain, Mild (1-3) Last Admin: 07/08/17 17:53 Dose: 650 mg Albuterol/Ipratropium (Duoneb 3 Mg/0.5 Mg (3 Ml) Ud) 3 ml INH RQ4 PRN PRN Reason: Shortness of Breath Last Admin: 07/09/17 16:23 Dose: 3 ml Alendronate Sodium (Fosamax) 70 mg PO QWK [facility] Last Admin: 07/10/17 09:09 Dose: 70 mg Amiodarone HCl (Cordarone) 200 mg PO DAILY@1300 [facility] Last Admin: 07/11/17 12:28 Dose: Not Given Aspirin (Aspirin Chewable) 81 mg PO DAILY [facility] Last Admin: 07/11/17 08:19 Dose: 81 mg Calcium/Vitamin D (Oyster Shell Calcium/Vitamin D 500 Mg-200 Iu) 1 tab PO DAILY [facility] Last Admin: 07/11/17 08:23 Dose: 1 tab Diltiazem HCl (Cardizem Cd) 180 mg PO QD5 [facility] Last Admin: 07/10/17 17:43 Dose: 180 mg Docusate Sodium (Colace) 100 mg PO BID [facility] Last Admin: 07/11/17 08:19 Dose: 100 mg Enoxaparin Sodium (Lovenox) 40 mg SC DAILY [facility] PRN Reason: Protocol Last Admin: 07/11/17 08:23 Dose: 40 mg Ferrous Sulfate (Feosol Liq) 300 mg PO TID [facility] Last Admin: 07/11/17 12:28 Dose: 300 mg Furosemide (Lasix) 20 mg IVP BID [facility] Last Admin: 07/11/17 08:20 Dose: 20 mg Isosorbide Mononitrate (Imdur Er) 30 mg PO DAILY [facility] Lidocaine (Lidoderm) 1 ea TD DAILY [facility] Last Admin: 07/11/17 08:21 Dose: 1 ea Megestrol Acetate (Megace) 400 mg PO DAILY [facility] Last Admin: 07/11/17 08:18 Dose: 400 mg Metoprolol Succinate (Toprol Xl) 50 mg PO DAILY [facility] Last Admin: 07/11/17 08:24 Dose: 50 mg Tramadol HCl (Ultram) 50 mg PO DAILY PRN PRN Reason: Pain, severe (8-10) - Labs Labs: 07/10/17 04:35 07/10/17 04:35 PT 12.9 Seconds (9.8-13.1) 07/01/17 15:20 INR 1.2 (0.9-1.2) 07/01/17 15:20 APTT 31.5 Seconds (25.6-37.1) 07/01/17 15:20 - Constitutional Appears: Cachectic, Chronically Ill - Head Exam Head Exam: ATRAUMATIC, NORMOCEPHALIC - Eye Exam Eye Exam: EOMI, PERRL - ENT Exam ENT Exam: Mucous Membranes Moist - Neck Exam Neck Exam: Full ROM. absent: Lymphadenopathy - Respiratory Exam Respiratory Exam: Accessory Muscle Use (minimal), Rhonchi (diffuse) - Cardiovascular Exam Cardiovascular Exam: Irregular Rhythm, +S1, +S2 - GI/Abdominal Exam GI & Abdominal Exam: Soft, Normal Bowel Sounds. absent: Tenderness - Extremities Exam Extremities Exam: absent: Calf Tenderness, Pedal Edema - Neurological Exam Neurological Exam: Awake - Psychiatric Exam Psychiatric exam: Flat Affect, Normal Mood - Skin Skin Exam: Dry, Intact, Warm Assessment and Plan - Assessment and Plan (Free Text) Assessment: 86 yr old F admitted for acute on chronic CHF with preserved EF, now with rate controlled A-fib, s/p NSTEMI, anemia of chronic disease. -continue management in ICU -Cardiology on consult: will follow recommendations: maintain amiodarone, toprol , cardizem, continue with diuresis -f/u CBC, will consider blood transfusion -Lovenox 40 mg SC QD for DVT prophylaxis
[2017-07-11] MEDS: diltiaZEM 180 mg/24 Hours CD Cap PO SCH (17:41)
[2017-07-12 05:38] LABS: MEAN CORPUSCULAR HEMOGLOBIN 32.8 pg (27.0-31.0); MEAN CORPUSCULAR HGB CONC 32.5 g/dL (33.0-37.0); RBC 2.44 Mil/uL (3.80-5.20); RED CELL DISTRIBUTION WIDTH 18.2 % (11.5-14.5)
[2017-07-12 06:09] LABS: BLOOD UREA NITROGEN 24 mg/dl (7-17); CALCIUM 8.9 mg/dL (8.4-10.2); GFR AFRICAN-AMERICAN > 60; GFR NON-AFRICAN AMERICAN > 60
[2017-07-12 08:05] LABS: ABG ALLEN TEST YES; ARTERIAL BLOOD GAS HCO3 42.4 mmol/L (21-28); ARTERIAL BLOOD GAS HEMOGLOBIN 8.4 g/dL (11.7-17.4); ARTERIAL BLOOD GAS O2 CAPACITY 12.1 mL/dL (16-24); ARTERIAL BLOOD GAS O2 SAT 99.5 % (95-98); ARTERIAL BLOOD GAS PCO2 67 mm/Hg (35-45); ARTERIAL BLOOD GAS PH 7.47 (7.35-7.45); ARTERIAL BLOOD GAS PO2 191 mm/Hg (80-100); ARTERIAL BLOOD GAS TCO2 50.9 mmol/L (22-28)
[2017-07-12] MEDS: Lidocaine 5% Patch TD SCH (10:01)
[2017-07-12] MEDS: Enoxaparin 40 mg Syringe SC SCH (10:03)
[2017-07-12] MEDS: Ferrous Sulfate 300 mg/5 mL Liq UD PO SCH ×3 (10:03→17:19)
[2017-07-12] MEDS: Calcium-Vit D 500 mg-200 Units Tab UD PO SCH (10:05)
[2017-07-12] MEDS: Megestrol Acetate 40 mg/ml Cup PO SCH (10:05)
[2017-07-12] MEDS: Metoprolol Succinate 50 mg XL Tab PO SCH (10:05)
[2017-07-12] MEDS: Albuterol-Ipratrop 3 mg / 0.5 (3 ml) UD INH SCH ×3 (11:25→19:19)
[2017-07-12] MEDS ORDERED: Potassium Chloride 20 mEq/15 ml LIQ UD PO ONE ×2 (12:58→16:00)
--- NOTE | 2017-07-12 13:06 | CP.CCUPN ---
CCU Subjective - Physician Review Subjective (Free Text): Sleeping and easily arousable, does not appear distressed at bed rest. Tachycardic again upto HR 140s in A Fib with RVR, denies any chest discomfort, nor any worsening dyspnea. Has diuresed over 550 ml last 24H, on IV Lasix BID. SPO2 100% on nasal cannula. Other vitals and I/O's reviewed. ROS: No other pertinent negs or positives on 10+ system review. PMSFH: All other Nursing and physician documentation reviewed to date; no new pertinent info noted relevant to current medical problems. CXR: none pending IMPRESSION / MAJOR PROBLEMS NOW: 1. Recurrent rapid A flutter / A Fib 2. Azotemia / Dehydration 3. 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 Chronic disease Anemia PLAN: 1. IV Amiodarone bolus now; will hold on infusion unless tachycardia persists after bolus. 2. Marked hypercarbia noted in assoc with severe Bicarb elevation. Will decrease Lasix to QD dosing and substitute with trial of IV Acetazolamide. 3. Decrease oxygen to 1-2 LPM flow as tolerated. Repeat ABG ordered. 4. Repeat CXR for f/u from lasttsudy done on 07/09/17. 5. Check for any Advance Directives. CCU Objective - Vital Signs / Intake & Output Vital Signs (Last 4 hours): Vital Signs Temp Pulse Resp BP Pulse Ox 07/12/17 12:36 136 H 109/68 07/12/17 12:00 98.3 F 116 H 28 H 92/53 L 100 07/12/17 10:05 101 H 111/60 07/12/17 10:00 102 H 18 111/60 100 Intake and Output (Last 8hrs): Intake & Output 07/11/17 07/12/17 07/12/17 22:59 06:59 14:59 Intake Total 270 Output Total 300 Balance -30 Intake: Oral 270 Output: Urine 300 Urethral (Alvarado) 300 - Physical Exam Head: Positive for: Normocephalic Pupils: Positive for: PERRL Extroacular Muscles: Positive for: EOMI Conjunctiva: Negative for: Icteric Neck: Positive for: Normal Range of Motion. Negative for: JVD Respiratory/Chest: Positive for: Clear to Auscultation, Rales. Negative for: Accessory Muscle Use Cardiovascular: Positive for: Murmurs, Normal S1, S2, Irregular Rhythm. Negative for: Regular Rate and Rhythm Abdomen: Positive for: Normal Bowel Sounds. Negative for: Tenderness, Distention, Mass/Organomegaly Upper Extremity: Positive for: Normal Inspection Lower Extremity: Positive for: Normal Inspection, Other (atrophy). Negative for : CALF TENDERNESS, Cyanosis Neurological: Positive for: GCS=15, Motor Func Grossly Intact Skin: Positive for: Warm, Dry. Negative for: Rashes Psychiatric: Positive for: Alert, Oriented x 3 - Medications Active Medications: Active Medications Generic Name Dose Route Start Last Admin Trade Name Freq PRN Reason Stop Dose Admin Acetaminophen 650 mg 07/04/17 01:19 07/08/17 17:53 Tylenol 325mg Tab PO 650 mg Q6 PRN Administration Pain, Mild (1-3) Acetazolamide 500 mg 07/12/17 11:00 07/12/17 12:38 Diamox 500 Mg Inj IV 07/14/17 09:01 500 mg DAILY JEB Administration Albuterol/Ipratropium 3 ml 07/12/17 10:00 07/12/17 11:25 Duoneb 3 Mg/0.5 Mg (3 Ml) Ud INH 3 ml Q6 JEB Administration Alendronate Sodium 70 mg 07/02/17 23:20 07/10/17 09:09 Fosamax PO 70 mg QWK JEB Administration Amiodarone HCl 200 mg 07/10/17 13:00 07/12/17 12:36 Cordarone PO 200 mg DAILY@1300 JEB Administration Aspirin 81 mg 07/03/17 09:00 07/12/17 10:03 Aspirin Chewable PO 81 mg DAILY JEB Administration Calcium/Vitamin D 1 tab 07/03/17 09:00 07/12/17 10:05 Oyster Shell Calcium/Vitamin D 500 Mg-200 Iu PO 1 tab DAILY JEB Administration Diltiazem HCl 180 mg 07/10/17 17:00 07/11/17 17:41 Cardizem Cd PO 180 mg QD5 JEB Administration Docusate Sodium 100 mg 07/04/17 18:15 07/12/17 10:03 Colace PO 100 mg BID JEB Administration Enoxaparin Sodium 40 mg 07/06/17 09:00 07/12/17 10:03 Lovenox SC 40 mg DAILY JEB Administration Protocol Ferrous Sulfate 300 mg 07/07/17 17:00 07/12/17 12:38 Feosol Liq PO 300 mg TID JEB Administration Furosemide 20 mg 07/13/17 09:00 Lasix IVP DAILY JEB Amiodarone HCl 150 mg/ 103 mls @ 618 mls/hr 07/12/17 13:02 Dextrose IVPB 07/12/17 13:11 ONCE ONE Protocol 15 MG/MIN Isosorbide Mononitrate 30 mg 07/03/17 09:00 Imdur Er PO DAILY JEB Lidocaine 1 ea 07/08/17 18:30 07/12/17 10:01 Lidoderm TD 1 ea DAILY JEB Administration Megestrol Acetate 400 mg 07/07/17 16:46 07/12/17 10:05 Megace PO 400 mg DAILY JEB Administration Metoprolol Succinate 50 mg 07/04/17 09:00 07/12/17 10:05 Toprol Xl PO 50 mg DAILY JEB Administration Potassium Chloride 20 meq 07/12/17 12:58 Potassium Chloride Oral Soln PO 07/12/17 12:59 ONCE ONE Potassium Chloride 20 meq 07/12/17 16:00 Potassium Chloride Oral Soln PO 07/12/17 16:01 ONCE ONE Tramadol HCl 50 mg 07/09/17 18:45 Ultram PO DAILY PRN Pain, severe (8-10) - Patient Studies Lab Studies: Microbiology Studies 07/09/17 15:55 MRSA Culture (Admit) - Final Naris MRSA NOT DETECTED Lab Studies 07/12/17 07/12/17 07/12/17 Range/Units 07:45 04:50 04:50 WBC 3.0 L (4.8-10.8) K/uL RBC 2.44 L (3.80-5.20) Mil/uL Hgb 8.0 L (12.0-16.0) g/dL Hct 24.6 L (34.0-47.0) % MCV 101.0 H (81.0-99.0) fl MCH 32.8 H (27.0-31.0) pg MCHC 32.5 L (33.0-37.0) g/dL RDW 18.2 H (11.5-14.5) % Plt Count 256 (130-400) K/uL pCO2 67 H (35-45) mm/Hg pO2 191 H (80-100) mm/Hg HCO3 42.4 H* (21-28) mmol/L ABG pH 7.47 H (7.35-7.45) ABG Total CO2 50.9 H (22-28) mmol/L ABG O2 Saturation 99.5 H (95-98) % ABG O2 Content 12.0 L (15-23) ML/dL ABG Base Excess 22.4 H (-2.0-3.0) mmol/L ABG Hemoglobin 8.4 L (11.7-17.4) g/dL ABG Carboxyhemoglobin 0.4 L (0.5-1.5) % POC ABG HHb (Measured) 0.5 (0.0-5.0) % ABG Methemoglobin 1.1 (0.0-3.0) % ABG O2 Capacity 12.1 L (16-24) mL/dL Hiram Test Yes A-a O2 Difference -47.0 mm/Hg Hgb O2 Saturation 97.9 (95.0-98.0) % FiO2 32.0 % Crit Value Called To Shaylee walker Crit Value Called By 23 Crit Value Read Back Y Blood Gas Notified Time 803 Sodium 147 (132-148) mmol/l Potassium 3.3 L (3.6-5.0) MMOL/L Chloride 92 L (98-107) mmol/L Carbon Dioxide 44 H* (22-30) mmol/L Anion Gap 14 (10-20) BUN 24 H (7-17) mg/dl Creatinine 0.7 (0.7-1.2) mg/dl Est GFR ( Amer) > 60 Est GFR (Non-Af Amer) > 60 Random Glucose 103 (65-105) mg/dL Calcium 8.9 (8.4-10.2) mg/dL Laboratory Results - last 24 hr 07/12/17 07/12/17 07/12/17 04:50 04:50 07:45 WBC 3.0 L RBC 2.44 L Hgb 8.0 L Hct 24.6 L MCV 101.0 H MCH 32.8 H MCHC 32.5 L RDW 18.2 H Plt Count 256 pCO2 67 H pO2 191 H HCO3 42.4 H* ABG pH 7.47 H ABG Total CO2 50.9 H ABG O2 Saturation 99.5 H ABG O2 Content 12.0 L ABG Base Excess 22.4 H ABG Hemoglobin 8.4 L ABG Carboxyhemoglobin 0.4 L POC ABG HHb (Measured) 0.5 ABG Methemoglobin 1.1 ABG O2 Capacity 12.1 L Hiram Test Yes A-a O2 Difference -47.0 Hgb O2 Saturation 97.9 FiO2 32.0 Crit Value Called To Shaylee walker Crit Value Called By 23 Crit Value Read Back Y Blood Gas Notified Time 803 Sodium 147 Potassium 3.3 L Chloride 92 L Carbon Dioxide 44 H* Anion Gap 14 BUN 24 H Creatinine 0.7 Est GFR ( Amer) > 60 Est GFR (Non-Af Amer) > 60 Random Glucose 103 Calcium 8.9 Fingerstick Blood Sugar Results: 100 Review of Systems - Review of Systems All systems: reviewed and no additional remarkable complaints except (as above) Critical Care Progress Note - Nutrition Nutrition: Nutrition Category Date Time Status Heart Healthy Diet [DIET] Diets 07/04/17 Breakfast Active
[2017-07-12] MEDS ORDERED: Amiodarone 150mg/3 ml vial ONE (14:23)
--- NOTE | 2017-07-12 15:53 | CP.PCM.PN ---
Subjective - Date & Time of Evaluation Date of Evaluation: 07/12/17 Time of Evaluation: 10:05 - Subjective Subjective: Patient seen and examined at beside with attending- Dr. Avelar. More alert and awake today, reports less SOB, more verbal. Objective - Vital Signs/Intake and Output Vital Signs (last 24 hours): Temp Pulse Resp BP Pulse Ox 98.3 F 140 H 25 H 114/64 98 07/12/17 12:00 07/12/17 14:32 07/12/17 14:32 07/12/17 14:32 07/12/17 14:32 - Medications Medications: Current Medications Acetaminophen (Tylenol 325mg Tab) 650 mg PO Q6 PRN PRN Reason: Pain, Mild (1-3) Last Admin: 07/08/17 17:53 Dose: 650 mg Acetazolamide (Diamox 500 Mg Inj) 500 mg IV DAILY [facility] Stop: 07/14/17 09:01 Last Admin: 07/12/17 12:38 Dose: 500 mg Albuterol/Ipratropium (Duoneb 3 Mg/0.5 Mg (3 Ml) Ud) 3 ml INH Q6 [facility] Last Admin: 07/12/17 15:30 Dose: 3 ml Alendronate Sodium (Fosamax) 70 mg PO QWK [facility] Last Admin: 07/10/17 09:09 Dose: 70 mg Amiodarone HCl (Cordarone) 200 mg PO DAILY@1300 [facility] Last Admin: 07/12/17 12:36 Dose: 200 mg Aspirin (Aspirin Chewable) 81 mg PO DAILY [facility] Last Admin: 07/12/17 10:03 Dose: 81 mg Calcium/Vitamin D (Oyster Shell Calcium/Vitamin D 500 Mg-200 Iu) 1 tab PO DAILY [facility] Last Admin: 07/12/17 10:05 Dose: 1 tab Diltiazem HCl (Cardizem Cd) 180 mg PO QD5 [facility] Last Admin: 07/11/17 17:41 Dose: 180 mg Docusate Sodium (Colace) 100 mg PO BID [facility] Last Admin: 07/12/17 10:03 Dose: 100 mg Enoxaparin Sodium (Lovenox) 40 mg SC DAILY [facility] PRN Reason: Protocol Last Admin: 07/12/17 10:03 Dose: 40 mg Ferrous Sulfate (Feosol Liq) 300 mg PO TID [facility] Last Admin: 07/12/17 12:38 Dose: 300 mg Furosemide (Lasix) 20 mg IVP DAILY [facility] Isosorbide Mononitrate (Imdur Er) 30 mg PO DAILY [facility] Lidocaine (Lidoderm) 1 ea TD DAILY [facility] Last Admin: 07/12/17 10:01 Dose: 1 ea Megestrol Acetate (Megace) 400 mg PO DAILY [facility] Last Admin: 07/12/17 10:05 Dose: 400 mg Metoprolol Succinate (Toprol Xl) 50 mg PO DAILY [facility] Last Admin: 07/12/17 10:05 Dose: 50 mg Potassium Chloride (Potassium Chloride Oral Soln) 20 meq PO ONCE ONE Stop: 07/12/17 16:01 Tramadol HCl (Ultram) 50 mg PO DAILY PRN PRN Reason: Pain, severe (8-10) - Labs Labs: 07/12/17 04:50 07/12/17 04:50 PT 12.9 Seconds (9.8-13.1) 07/01/17 15:20 INR 1.2 (0.9-1.2) 07/01/17 15:20 APTT 31.5 Seconds (25.6-37.1) 07/01/17 15:20 - Constitutional Appears: No Acute Distress, Cachectic, Chronically Ill - Head Exam Head Exam: ATRAUMATIC, NORMOCEPHALIC - Eye Exam Eye Exam: EOMI Pupil Exam: PERRL - ENT Exam ENT Exam: Mucous Membranes Moist - Neck Exam Neck Exam: Full ROM - Respiratory Exam Respiratory Exam: Rhonchi (diffuse) - Cardiovascular Exam Cardiovascular Exam: Irregular Rhythm - GI/Abdominal Exam GI & Abdominal Exam: Distended, Normal Bowel Sounds. absent: Tenderness - Extremities Exam Extremities Exam: Full ROM. absent: Calf Tenderness, Pedal Edema - Neurological Exam Neurological Exam: Alert, Awake, CN II-XII Intact - Psychiatric Exam Psychiatric exam: Normal Affect, Normal Mood - Skin Skin Exam: Dry, Warm Assessment and Plan - Assessment and Plan (Free Text) Assessment: 86 yr old F admitted for acute on chronic CHF with preserved EF, now with rate controlled A-fib, s/p NSTEMI, anemia of chronic disease. -transfer to tele -Cardiology on consult: will follow recommendations: maintain amiodarone, toprol , cardizem, continue with diuresis -f/u CBC, will consider blood transfusion -Lovenox 40 mg SC QD for DVT prophylaxis -lactulose 30mg PO once
[2017-07-12] MEDS: diltiaZEM 180 mg/24 Hours CD Cap PO SCH (17:16)
[2017-07-12] MEDS ORDERED: Digoxin 500 mcg/2ml (0.5 mg/2ml) Inj IVP ONE (18:44)
--- NOTE | 2017-07-12 18:46 | CP.PCM.PN ---
Subjective - Date & Time of Evaluation Date of Evaluation: 07/12/17 Time of Evaluation: 18:35 - Subjective Subjective: no current chest pain. Patient has noted tachycardia. Objective - Vital Signs/Intake and Output Vital Signs (last 24 hours): Temp Pulse Resp BP Pulse Ox 97.7 F 118 H 22 110/66 99 07/12/17 16:00 07/12/17 18:00 07/12/17 18:00 07/12/17 18:00 07/12/17 18:00 Intake and Output: 07/12/17 07/12/17 06:59 18:59 Intake Total 200 Output Total 500 Balance -300 - Medications Medications: Current Medications Acetaminophen (Tylenol 325mg Tab) 650 mg PO Q6 PRN PRN Reason: Pain, Mild (1-3) Last Admin: 07/08/17 17:53 Dose: 650 mg Acetazolamide (Diamox 500 Mg Inj) 500 mg IV DAILY [facility] Stop: 07/14/17 09:01 Last Admin: 07/12/17 12:38 Dose: 500 mg Albuterol/Ipratropium (Duoneb 3 Mg/0.5 Mg (3 Ml) Ud) 3 ml INH Q6 [facility] Last Admin: 07/12/17 15:30 Dose: 3 ml Alendronate Sodium (Fosamax) 70 mg PO QWK [facility] Last Admin: 07/10/17 09:09 Dose: 70 mg Amiodarone HCl (Cordarone) 200 mg PO DAILY@1300 [facility] Last Admin: 07/12/17 12:36 Dose: 200 mg Aspirin (Aspirin Chewable) 81 mg PO DAILY [facility] Last Admin: 07/12/17 10:03 Dose: 81 mg Calcium/Vitamin D (Oyster Shell Calcium/Vitamin D 500 Mg-200 Iu) 1 tab PO DAILY [facility] Last Admin: 07/12/17 10:05 Dose: 1 tab Diltiazem HCl (Cardizem Cd) 180 mg PO QD5 [facility] Last Admin: 07/12/17 17:16 Dose: 180 mg Docusate Sodium (Colace) 100 mg PO BID [facility] Last Admin: 07/12/17 17:18 Dose: 100 mg Enoxaparin Sodium (Lovenox) 40 mg SC DAILY [facility] PRN Reason: Protocol Last Admin: 07/12/17 10:03 Dose: 40 mg Ferrous Sulfate (Feosol Liq) 300 mg PO TID [facility] Last Admin: 07/12/17 17:19 Dose: 300 mg Furosemide (Lasix) 20 mg IVP DAILY [facility] Isosorbide Mononitrate (Imdur Er) 30 mg PO DAILY [facility] Lidocaine (Lidoderm) 1 ea TD DAILY [facility] Last Admin: 07/12/17 10:01 Dose: 1 ea Megestrol Acetate (Megace) 400 mg PO DAILY [facility] Last Admin: 07/12/17 10:05 Dose: 400 mg Metoprolol Succinate (Toprol Xl) 50 mg PO DAILY [facility] Last Admin: 07/12/17 10:05 Dose: 50 mg Tramadol HCl (Ultram) 50 mg PO DAILY PRN PRN Reason: Pain, severe (8-10) - Labs Labs: 07/12/17 04:50 07/12/17 04:50 PT 12.9 Seconds (9.8-13.1) 07/01/17 15:20 INR 1.2 (0.9-1.2) 07/01/17 15:20 APTT 31.5 Seconds (25.6-37.1) 07/01/17 15:20 - Constitutional Appears: Non-toxic - Head Exam Head Exam: NORMAL INSPECTION - Eye Exam Eye Exam: Normal appearance - ENT Exam ENT Exam: Mucous Membranes Moist - Neck Exam Neck Exam: Full ROM - Respiratory Exam Respiratory Exam: Decreased Breath Sounds - Cardiovascular Exam Cardiovascular Exam: Irregular Rhythm - GI/Abdominal Exam GI & Abdominal Exam: Normal Bowel Sounds - Rectal Exam Rectal Exam: Deferred - Extremities Exam Extremities Exam: absent: Pedal Edema - Back Exam Back Exam: NORMAL INSPECTION - Neurological Exam Neurological Exam: Alert - Psychiatric Exam Psychiatric exam: Normal Affect - Skin Skin Exam: Normal Color Assessment and Plan (1) Atrial fibrillation Assessment & Plan: will recommend digoxin. isaac peck. Status: Acute
[2017-07-12 19:05] VITALS: PULSE 121
[2017-07-13] MEDS: Albuterol-Ipratrop 3 mg / 0.5 (3 ml) UD INH SCH ×4 (01:02→19:10)
[2017-07-13 05:55] LABS: MEAN CELL VOLUME 101.2 fl (81.0-99.0); MEAN CORPUSCULAR HEMOGLOBIN 33.3 pg (27.0-31.0); MEAN CORPUSCULAR HGB CONC 32.9 g/dL (33.0-37.0); RBC 2.7 Mil/uL (3.80-5.20); RED CELL DISTRIBUTION WIDTH 18.5 % (11.5-14.5)
[2017-07-13 06:14] LABS: BLOOD UREA NITROGEN 15 mg/dl (7-17); CALCIUM 9.3 mg/dL (8.4-10.2); GFR AFRICAN-AMERICAN > 60; GFR NON-AFRICAN AMERICAN > 60
[2017-07-13] MEDS: Ferrous Sulfate 300 mg/5 mL Liq UD PO SCH ×3 (09:23→17:04)
[2017-07-13] MEDS: Enoxaparin 40 mg Syringe SC SCH (09:26)
[2017-07-13] MEDS: Lidocaine 5% Patch TD SCH (09:26)
[2017-07-13] MEDS: Metoprolol Succinate 50 mg XL Tab PO SCH (09:27)
[2017-07-13] MEDS: Megestrol Acetate 40 mg/ml Cup PO SCH (09:27)
[2017-07-13] MEDS: Calcium-Vit D 500 mg-200 Units Tab UD PO SCH (09:27)
--- NOTE | 2017-07-13 13:39 | CP.CCUPN ---
CCU Subjective - Physician Review Subjective (Free Text): Remains alert when awakened and appropriately responsive, no distress. Tachycardia resolved, HR 75-83 and rhythm appears more as A Flutter with occas variable conduction, but mostly 4:1, denies any chest discomfort, nor any worsening dyspnea. SPO2 100% on nasal cannula. Other vitals and I/O's reviewed. Negative 0.3 L fluid balance last 24H. ROS: No other pertinent negs or positives on 10+ system review. PMSFH: All other Nursing and physician documentation reviewed to date; no new pertinent info noted relevant to current medical problems. CXR: none pending IMPRESSION / MAJOR PROBLEMS NOW: 1. Recurrent A flutter now / A Fib with RVR yesterday 2. Azotemia / Dehydration 3. 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 Chronic disease Anemia PLAN: 1. On large dose once a day Cardizem, BP levels remain very borderline, ?? effect of Cardizem on overall rate control, consider reducing dosage. As Cardizem dosage is reduced, may try slight increase in Toprol or Amiodarone PO dose / regimen. 2. Ongoing Acetazolamide trial, repeat ABGs ordered, not done yesterday. 3. Repeat CXR for f/u from last study done on 07/09/17. 4. Check for any Advance Directives. CCU Objective - Vital Signs / Intake & Output Vital Signs (Last 4 hours): Vital Signs Temp Pulse Resp BP Pulse Ox 07/13/17 12:25 79 101/62 07/13/17 12:00 98.3 F 78 19 78/48 L 100 Intake and Output (Last 8hrs): Intake & Output 07/12/17 07/13/17 07/13/17 22:59 06:59 14:59 Intake Total 200 Output Total 500 Balance -300 Weight 74 lb Intake: Oral 200 Output: Urine 500 Urethral (Alvarado) 500 Other: # Bowel Movements 1 - Physical Exam Head: Positive for: Normocephalic Pupils: Positive for: PERRL Extroacular Muscles: Positive for: EOMI Conjunctiva: Negative for: Icteric Neck: Positive for: Normal Range of Motion. Negative for: JVD Respiratory/Chest: Positive for: Clear to Auscultation, Rales. Negative for: Accessory Muscle Use Cardiovascular: Positive for: Murmurs, Normal S1, S2, Irregular Rhythm. Negative for: Regular Rate and Rhythm Abdomen: Positive for: Normal Bowel Sounds. Negative for: Tenderness, Distention, Mass/Organomegaly Upper Extremity: Positive for: Normal Inspection Lower Extremity: Positive for: Normal Inspection, Other (atrophy). Negative for : CALF TENDERNESS, Cyanosis Neurological: Positive for: GCS=15, Motor Func Grossly Intact Skin: Positive for: Warm, Dry. Negative for: Rashes Psychiatric: Positive for: Alert, Oriented x 3 - Medications Active Medications: Active Medications Generic Name Dose Route Start Last Admin Trade Name Freq PRN Reason Stop Dose Admin Acetaminophen 650 mg 07/04/17 01:19 07/08/17 17:53 Tylenol 325mg Tab PO 650 mg Q6 PRN Administration Pain, Mild (1-3) Acetazolamide 500 mg 07/12/17 11:00 07/13/17 09:23 Diamox 500 Mg Inj IV 07/14/17 09:01 500 mg DAILY JEB Administration Albuterol/Ipratropium 3 ml 07/13/17 14:00 07/13/17 13:14 Duoneb 3 Mg/0.5 Mg (3 Ml) Ud INH 3 ml RQ6 JEB Administration Alendronate Sodium 70 mg 07/02/17 23:20 07/10/17 09:09 Fosamax PO 70 mg QWK JEB Administration Amiodarone HCl 200 mg 07/10/17 13:00 07/12/17 12:36 Cordarone PO 200 mg DAILY@1300 JEB Administration Aspirin 81 mg 07/03/17 09:00 07/13/17 09:22 Aspirin Chewable PO 81 mg DAILY JEB Administration Calcium/Vitamin D 1 tab 07/03/17 09:00 07/13/17 09:27 Oyster Shell Calcium/Vitamin D 500 Mg-200 Iu PO 1 tab DAILY JEB Administration Diltiazem HCl 180 mg 07/10/17 17:00 07/12/17 17:16 Cardizem Cd PO 180 mg QD5 JEB Administration Docusate Sodium 100 mg 07/04/17 18:15 07/13/17 09:22 Colace PO 100 mg BID JEB Administration Enoxaparin Sodium 40 mg 07/06/17 09:00 07/13/17 09:26 Lovenox SC 40 mg DAILY JEB Administration Protocol Ferrous Sulfate 300 mg 07/07/17 17:00 07/13/17 09:23 Feosol Liq PO 300 mg TID JEB Administration Furosemide 20 mg 07/13/17 09:00 07/13/17 09:25 Lasix IVP 20 mg DAILY JEB Administration Isosorbide Mononitrate 30 mg 07/03/17 09:00 Imdur Er PO DAILY JEB Lidocaine 1 ea 07/08/17 18:30 07/13/17 09:26 Lidoderm TD 1 ea DAILY JEB Administration Megestrol Acetate 400 mg 07/07/17 16:46 07/13/17 09:27 Megace PO 400 mg DAILY JEB Administration Metoprolol Succinate 50 mg 07/04/17 09:00 07/13/17 09:27 Toprol Xl PO 50 mg DAILY JEB Administration Tramadol HCl 50 mg 07/09/17 18:45 Ultram PO DAILY PRN Pain, severe (8-10) - Patient Studies Lab Studies: Lab Studies 07/13/17 07/13/17 Range/Units 04:25 04:25 WBC 3.0 L (4.8-10.8) K/uL RBC 2.70 L (3.80-5.20) Mil/uL Hgb 9.0 L (12.0-16.0) g/dL Hct 27.4 L (34.0-47.0) % MCV 101.2 H (81.0-99.0) fl MCH 33.3 H (27.0-31.0) pg MCHC 32.9 L (33.0-37.0) g/dL RDW 18.5 H (11.5-14.5) % Plt Count 287 (130-400) K/uL Sodium 146 (132-148) mmol/l Potassium 3.6 (3.6-5.0) MMOL/L Chloride 99 (98-107) mmol/L Carbon Dioxide 34 H (22-30) mmol/L Anion Gap 17 (10-20) BUN 15 (7-17) mg/dl Creatinine 0.7 (0.7-1.2) mg/dl Est GFR ( Amer) > 60 Est GFR (Non-Af Amer) > 60 Random Glucose 108 H (65-105) mg/dL Calcium 9.3 (8.4-10.2) mg/dL Laboratory Results - last 24 hr 01/25/18 01/25/18 04:25 04:25 WBC 3.0 L RBC 2.70 L Hgb 9.0 L Hct 27.4 L MCV 101.2 H MCH 33.3 H MCHC 32.9 L RDW 18.5 H Plt Count 287 Sodium 146 Potassium 3.6 Chloride 99 Carbon Dioxide 34 H Anion Gap 17 BUN 15 Creatinine 0.7 Est GFR ( Amer) > 60 Est GFR (Non-Af Amer) > 60 Random Glucose 108 H Calcium 9.3 Fingerstick Blood Sugar Results: 100 Review of Systems - Review of Systems All systems: reviewed and no additional remarkable complaints except (as above) Critical Care Progress Note - Nutrition Nutrition: Nutrition Category Date Time Status Heart Healthy Diet [DIET] Diets 07/04/17 Breakfast Active
--- NOTE | 2017-07-13 13:53 | CP.PCM.PN ---
Subjective - Date & Time of Evaluation Date of Evaluation: 07/13/17 Time of Evaluation: 10:20 - Subjective Subjective: Patient seen and examined at bedside with attending-Dr. Avelar. Awake, alert, cooperative with physical exam. Reports she feels mildly better. Tolerating PO diet. Denies chest pain. Objective - Vital Signs/Intake and Output Vital Signs (last 24 hours): Temp Pulse Resp BP Pulse Ox 98.3 F 79 19 101/62 100 07/13/17 12:00 07/13/17 12:25 07/13/17 12:00 07/13/17 12:25 07/13/17 12:00 - Medications Medications: Current Medications Acetaminophen (Tylenol 325mg Tab) 650 mg PO Q6 PRN PRN Reason: Pain, Mild (1-3) Last Admin: 07/08/17 17:53 Dose: 650 mg Acetazolamide (Diamox 500 Mg Inj) 500 mg IV DAILY [facility] Stop: 07/14/17 09:01 Last Admin: 07/13/17 09:23 Dose: 500 mg Albuterol/Ipratropium (Duoneb 3 Mg/0.5 Mg (3 Ml) Ud) 3 ml INH RQ6 [facility] Last Admin: 07/13/17 13:14 Dose: 3 ml Alendronate Sodium (Fosamax) 70 mg PO QWK [facility] Last Admin: 07/10/17 09:09 Dose: 70 mg Amiodarone HCl (Cordarone) 200 mg PO DAILY@1300 [facility] Last Admin: 07/12/17 12:36 Dose: 200 mg Aspirin (Aspirin Chewable) 81 mg PO DAILY [facility] Last Admin: 07/13/17 09:22 Dose: 81 mg Calcium/Vitamin D (Oyster Shell Calcium/Vitamin D 500 Mg-200 Iu) 1 tab PO DAILY [facility] Last Admin: 07/13/17 09:27 Dose: 1 tab Diltiazem HCl (Cardizem Cd) 180 mg PO QD5 [facility] Last Admin: 07/12/17 17:16 Dose: 180 mg Docusate Sodium (Colace) 100 mg PO BID [facility] Last Admin: 07/13/17 09:22 Dose: 100 mg Enoxaparin Sodium (Lovenox) 40 mg SC DAILY [facility] PRN Reason: Protocol Last Admin: 07/13/17 09:26 Dose: 40 mg Ferrous Sulfate (Feosol Liq) 300 mg PO TID [facility] Last Admin: 07/13/17 09:23 Dose: 300 mg Furosemide (Lasix) 20 mg IVP DAILY [facility] Last Admin: 07/13/17 09:25 Dose: 20 mg Isosorbide Mononitrate (Imdur Er) 30 mg PO DAILY [facility] Lidocaine (Lidoderm) 1 ea TD DAILY [facility] Last Admin: 07/13/17 09:26 Dose: 1 ea Megestrol Acetate (Megace) 400 mg PO DAILY [facility] Last Admin: 07/13/17 09:27 Dose: 400 mg Metoprolol Succinate (Toprol Xl) 50 mg PO DAILY [facility] Last Admin: 07/13/17 09:27 Dose: 50 mg Sodium Phosphate (Fleet Enema) 135 ml [place] DAILY PRN PRN Reason: Constipation Tramadol HCl (Ultram) 50 mg PO DAILY PRN PRN Reason: Pain, severe (8-10) - Labs Labs: 07/13/17 04:25 07/13/17 04:25 PT 12.9 Seconds (9.8-13.1) 07/01/17 15:20 INR 1.2 (0.9-1.2) 07/01/17 15:20 APTT 31.5 Seconds (25.6-37.1) 07/01/17 15:20 - Constitutional Appears: Cachectic, Chronically Ill - Head Exam Head Exam: ATRAUMATIC, NORMOCEPHALIC - Eye Exam Eye Exam: EOMI - ENT Exam ENT Exam: Mucous Membranes Moist - Neck Exam Neck Exam: Full ROM - Respiratory Exam Respiratory Exam: NORMAL BREATHING PATTERN - Cardiovascular Exam Cardiovascular Exam: REGULAR RHYTHM, +S1, +S2 - GI/Abdominal Exam GI & Abdominal Exam: Normal Bowel Sounds - Extremities Exam Extremities Exam: Full ROM. absent: Pedal Edema - Neurological Exam Neurological Exam: Alert, Awake, CN II-XII Intact - Psychiatric Exam Psychiatric exam: Normal Affect, Normal Mood - Skin Skin Exam: Dry, Warm Assessment and Plan - Assessment and Plan (Free Text) Assessment: 86 yr old F admitted for acute on chronic CHF with preserved EF, now with rate controlled A-fib, s/p NSTEMI, anemia of chronic disease. -transfer to med/surg -Cardiology on consult: will follow recommendations: Digoxin 0.5mg given yesterday, maintain amiodarone, toprol, cardizem, continue with diuresis -CBC stable -Lasix 20mg PO BID -Lovenox 40 mg SC QD for DVT prophylaxis -fleet enema PRN for constipation
[2017-07-13] MEDS: diltiaZEM 180 mg/24 Hours CD Cap PO SCH (17:03)
[2017-07-14] MEDS: Albuterol-Ipratrop 3 mg / 0.5 (3 ml) UD INH SCH ×4 (01:06→19:00)
[2017-07-14 05:28] LABS: BASO % 0.3 % (0.0-2.0); EOS % 1.3 % (0.0-4.0); LYMPH % 29.4 % (20.0-40.0); MEAN CELL VOLUME 101.3 fl (81.0-99.0); MEAN CORPUSCULAR HEMOGLOBIN 32.5 pg (27.0-31.0); MEAN CORPUSCULAR HGB CONC 32.1 g/dL (33.0-37.0); MEAN PLATELET VOLUME 7.1 fl (7.2-11.7); MONO # 0.4 K/uL (0.0-0.8); MONO % 10.9 % (0.0-10.0); NEUT % 58.1 % (50.0-75.0); RBC 2.46 Mil/uL (3.80-5.20); RED CELL DISTRIBUTION WIDTH 18.6 % (11.5-14.5); WHITE BLOOD COUNT 3.4 K/uL (4.8-10.8)
[2017-07-14 05:47] LABS: ALB/GLOB RATIO 0.6 (1.0-2.1); ALBUMIN 2.9 g/dL (3.5-5.0); ALT/SGPT 22 U/L (9-52); AST/SGOT 30 U/L (14-36); BLOOD UREA NITROGEN 20 mg/dl (7-17); GFR AFRICAN-AMERICAN > 60; GFR NON-AFRICAN AMERICAN > 60
[2017-07-14] MEDS: Ferrous Sulfate 300 mg/5 mL Liq UD PO SCH ×3 (08:43→17:18)
[2017-07-14] MEDS: Lidocaine 5% Patch TD SCH (08:44)
[2017-07-14] MEDS: Enoxaparin 40 mg Syringe SC SCH (08:45)
[2017-07-14] MEDS: Metoprolol Succinate 50 mg XL Tab PO SCH (08:46)
[2017-07-14] MEDS: Calcium-Vit D 500 mg-200 Units Tab UD PO SCH (08:46)
[2017-07-14] MEDS: Megestrol Acetate 40 mg/ml Cup PO SCH (08:46)
--- NOTE | 2017-07-14 14:10 | CP.PCM.PN ---
Subjective - Date & Time of Evaluation Date of Evaluation: 07/14/17 Time of Evaluation: 10:20 - Subjective Subjective: Patient seen and examined at bedside with attending-Dr. Avelar. Patient is awake and alert. Denies chest pain, weakness or dizziness. Tolerating PO diet, normal urine output. On supplemental O2 via nasal cannula. Objective - Vital Signs/Intake and Output Vital Signs (last 24 hours): Temp Pulse Resp BP Pulse Ox 97.4 F L 57 L 17 109/55 L 100 07/14/17 12:18 07/14/17 12:46 07/14/17 12:18 07/14/17 12:46 07/14/17 12:18 Intake and Output: 07/14/17 07/14/17 06:59 18:59 Intake Total 120 240 Output Total 200 Balance -80 240 - Medications Medications: Current Medications Acetaminophen (Tylenol 325mg Tab) 650 mg PO Q6 PRN PRN Reason: Pain, Mild (1-3) Last Admin: 07/08/17 17:53 Dose: 650 mg Albuterol/Ipratropium (Duoneb 3 Mg/0.5 Mg (3 Ml) Ud) 3 ml INH RQ6 [facility] Last Admin: 07/14/17 13:04 Dose: 3 ml Alendronate Sodium (Fosamax) 70 mg PO QWK [facility] Last Admin: 07/10/17 09:09 Dose: 70 mg Amiodarone HCl (Cordarone) 200 mg PO DAILY@1300 [facility] Last Admin: 07/14/17 12:46 Dose: 200 mg Aspirin (Aspirin Chewable) 81 mg PO DAILY [facility] Last Admin: 07/14/17 08:41 Dose: 81 mg Calcium/Vitamin D (Oyster Shell Calcium/Vitamin D 500 Mg-200 Iu) 1 tab PO DAILY [facility] Last Admin: 07/14/17 08:46 Dose: 1 tab Diltiazem HCl (Cardizem Cd) 180 mg PO QD5 [facility] Last Admin: 07/13/17 17:03 Dose: 180 mg Docusate Sodium (Colace) 100 mg PO BID [facility] Last Admin: 07/14/17 08:41 Dose: 100 mg Enoxaparin Sodium (Lovenox) 40 mg SC DAILY [facility] PRN Reason: Protocol Last Admin: 07/14/17 08:45 Dose: 40 mg Ferrous Sulfate (Feosol Liq) 300 mg PO TID [facility] Last Admin: 07/14/17 12:47 Dose: 300 mg Furosemide (Lasix) 20 mg PO BID [facility] Last Admin: 07/14/17 08:43 Dose: 20 mg Isosorbide Mononitrate (Imdur Er) 30 mg PO DAILY [facility] Lidocaine (Lidoderm) 1 ea TD DAILY [facility] Last Admin: 07/14/17 08:44 Dose: 1 ea Megestrol Acetate (Megace) 400 mg PO DAILY [facility] Last Admin: 07/14/17 08:46 Dose: 400 mg Metoprolol Succinate (Toprol Xl) 50 mg PO DAILY [facility] Last Admin: 07/14/17 08:46 Dose: 50 mg Sodium Phosphate (Fleet Enema) 135 ml [place] DAILY PRN PRN Reason: Constipation - Labs Labs: 07/14/17 04:20 07/14/17 04:25 PT 12.9 Seconds (9.8-13.1) 07/01/17 15:20 INR 1.2 (0.9-1.2) 07/01/17 15:20 APTT 31.5 Seconds (25.6-37.1) 07/01/17 15:20 - Constitutional Appears: Cachectic, Chronically Ill - Head Exam Head Exam: ATRAUMATIC, NORMOCEPHALIC - Eye Exam Eye Exam: EOMI - ENT Exam ENT Exam: Mucous Membranes Moist - Neck Exam Neck Exam: Full ROM - Respiratory Exam Respiratory Exam: Rhonchi (diffuse) - Cardiovascular Exam Cardiovascular Exam: Irregular Rhythm, +S1, +S2 - GI/Abdominal Exam GI & Abdominal Exam: Soft, Normal Bowel Sounds. absent: Tenderness - Extremities Exam Extremities Exam: Full ROM. absent: Calf Tenderness - Neurological Exam Neurological Exam: Alert, Awake, CN II-XII Intact - Psychiatric Exam Psychiatric exam: Normal Affect, Normal Mood - Skin Skin Exam: Dry, Normal Color, Warm Assessment and Plan - Assessment and Plan (Free Text) Assessment: 86 yr old F admitted for acute on chronic CHF with preserved EF, now with rate controlled A-fib, s/p NSTEMI, anemia of chronic disease. -transfer to med/surg -Cardiology on consult: will follow recommendations: maintain amiodarone, toprol , cardizem, continue with diuresis -Lasix 20mg PO BID -Lovenox 40 mg SC QD for DVT prophylaxis -fleet enema PRN for constipation -PT/OT
[2017-07-14] MEDS: diltiaZEM 180 mg/24 Hours CD Cap PO SCH (17:17)
[2017-07-15] MEDS: Albuterol-Ipratrop 3 mg / 0.5 (3 ml) UD INH SCH ×4 (01:01→19:17)
[2017-07-15] MEDS: Ferrous Sulfate 300 mg/5 mL Liq UD PO SCH ×3 (10:28→17:46)
[2017-07-15] MEDS: Enoxaparin 40 mg Syringe SC SCH (10:31)
[2017-07-15] MEDS: Lidocaine 5% Patch TD SCH (10:31)
[2017-07-15] MEDS: Megestrol Acetate 40 mg/ml Cup PO SCH (10:32)
[2017-07-15] MEDS: Metoprolol Succinate 50 mg XL Tab PO SCH (10:32)
[2017-07-15] MEDS: Calcium-Vit D 500 mg-200 Units Tab UD PO SCH (10:32)
--- NOTE | 2017-07-15 12:54 | CP.PCM.PN ---
Subjective - Date & Time of Evaluation Date of Evaluation: 07/15/17 Time of Evaluation: 12:54 - Subjective Subjective: Noted to have low Hgb No site of bleed. Has mild SOB BP and pR are normal. Objective - Vital Signs/Intake and Output Vital Signs (last 24 hours): Temp Pulse Resp BP Pulse Ox 97.6 F 63 20 103/63 100 07/15/17 08:14 07/15/17 10:32 07/15/17 08:14 07/15/17 10:32 07/15/17 08:14 Intake and Output: 07/15/17 07/15/17 06:59 18:59 Output Total 275 Balance -275 - Medications Medications: Current Medications Acetaminophen (Tylenol 325mg Tab) 650 mg PO Q6 PRN PRN Reason: Pain, Mild (1-3) Last Admin: 07/08/17 17:53 Dose: 650 mg Albuterol/Ipratropium (Duoneb 3 Mg/0.5 Mg (3 Ml) Ud) 3 ml INH RQ6 [facility] Last Admin: 07/15/17 07:05 Dose: 3 ml Alendronate Sodium (Fosamax) 70 mg PO QWK [facility] Last Admin: 07/10/17 09:09 Dose: 70 mg Amiodarone HCl (Cordarone) 200 mg PO DAILY@1300 [facility] Last Admin: 07/14/17 12:46 Dose: 200 mg Aspirin (Aspirin Chewable) 81 mg PO DAILY [facility] Last Admin: 07/15/17 10:27 Dose: 81 mg Calcium/Vitamin D (Oyster Shell Calcium/Vitamin D 500 Mg-200 Iu) 1 tab PO DAILY [facility] Last Admin: 07/15/17 10:32 Dose: 1 tab Diltiazem HCl (Cardizem Cd) 180 mg PO QD5 [facility] Last Admin: 07/14/17 17:17 Dose: 180 mg Docusate Sodium (Colace) 100 mg PO BID [facility] Last Admin: 07/15/17 10:21 Dose: 100 mg Enoxaparin Sodium (Lovenox) 40 mg SC DAILY [facility] PRN Reason: Protocol Last Admin: 07/15/17 10:31 Dose: 40 mg Ferrous Sulfate (Feosol Liq) 300 mg PO TID [facility] Last Admin: 07/15/17 10:28 Dose: 300 mg Furosemide (Lasix) 20 mg PO BID [facility] Last Admin: 07/15/17 10:28 Dose: 20 mg Isosorbide Mononitrate (Imdur Er) 30 mg PO DAILY [facility] Lidocaine (Lidoderm) 1 ea TD DAILY [facility] Last Admin: 07/15/17 10:31 Dose: 1 ea Megestrol Acetate (Megace) 400 mg PO DAILY [facility] Last Admin: 07/15/17 10:32 Dose: 400 mg Metoprolol Succinate (Toprol Xl) 50 mg PO DAILY [facility] Last Admin: 07/15/17 10:32 Dose: 50 mg Sodium Phosphate (Fleet Enema) 135 ml [place] DAILY PRN PRN Reason: Constipation - Labs Labs: 07/14/17 04:20 07/14/17 04:25 PT 12.9 Seconds (9.8-13.1) 07/01/17 15:20 INR 1.2 (0.9-1.2) 07/01/17 15:20 APTT 31.5 Seconds (25.6-37.1) 07/01/17 15:20 - Head Exam Head Exam: NORMAL INSPECTION - Eye Exam Eye Exam: Normal appearance - ENT Exam ENT Exam: Mucous Membranes Moist - Respiratory Exam Respiratory Exam: Clear to Ausculation Bilateral, NORMAL BREATHING PATTERN - Cardiovascular Exam Cardiovascular Exam: REGULAR RHYTHM - GI/Abdominal Exam GI & Abdominal Exam: Soft, Normal Bowel Sounds - Neurological Exam Neurological Exam: CN II-XII Intact Assessment and Plan (1) Acute exacerbation of CHF (congestive heart failure) Status: Acute (2) Atrial fibrillation Status: Acute (3) Non-STEMI (non-ST elevated myocardial infarction) Status: Acute (4) Anemia Status: Acute - Assessment and Plan (Free Text) Plan: Cont meds Cont tx Cont diuretic monitor labs
[2017-07-15] MEDS: diltiaZEM 180 mg/24 Hours CD Cap PO SCH (17:33)
[2017-07-16] MEDS: Albuterol-Ipratrop 3 mg / 0.5 (3 ml) UD INH SCH ×4 (01:22→19:22)
[2017-07-16] MEDS: Calcium-Vit D 500 mg-200 Units Tab UD PO SCH (10:35)
[2017-07-16] MEDS: Metoprolol Succinate 50 mg XL Tab PO SCH (10:35)
[2017-07-16] MEDS: Enoxaparin 40 mg Syringe SC SCH (10:36)
[2017-07-16] MEDS: Ferrous Sulfate 300 mg/5 mL Liq UD PO SCH ×3 (10:37→17:24)
[2017-07-16] MEDS: Lidocaine 5% Patch TD SCH (10:38)
[2017-07-16] MEDS: Megestrol Acetate 40 mg/ml Cup PO SCH (10:40)
[2017-07-16] MEDS: diltiaZEM 180 mg/24 Hours CD Cap PO SCH (17:23)
[2017-07-17] MEDS: Albuterol-Ipratrop 3 mg / 0.5 (3 ml) UD INH SCH ×4 (01:04→19:19)
[2017-07-17] MEDS: Ferrous Sulfate 300 mg/5 mL Liq UD PO SCH ×3 (09:24→17:45)
[2017-07-17] MEDS: Lidocaine 5% Patch TD SCH (09:25)
[2017-07-17] MEDS: Megestrol Acetate 40 mg/ml Cup PO SCH (09:25)
[2017-07-17] MEDS: Calcium-Vit D 500 mg-200 Units Tab UD PO SCH (09:26)
[2017-07-17] MEDS: Metoprolol Succinate 50 mg XL Tab PO SCH (09:28)
[2017-07-17 10:04] VITALS: BMI 15.7
--- NOTE | 2017-07-17 14:36 | IP.NPCORE ---
Heart Failure Core Measure - Heart Failure Ejection Fraction: 40 % or Greater
[2017-07-17 15:15] LABS: HEMOGLOBIN 7.3 g/dL (12.0-16.0); MEAN CELL VOLUME 101.6 fl (81.0-99.0); MEAN CORPUSCULAR HEMOGLOBIN 33.2 pg (27.0-31.0); MEAN CORPUSCULAR HGB CONC 32.7 g/dL (33.0-37.0); RBC 2.19 Mil/uL (3.80-5.20); WHITE BLOOD COUNT 3.7 K/uL (4.8-10.8)
[2017-07-17 15:33] LABS: BLOOD UREA NITROGEN 18 mg/dl (7-17); CALCIUM 9.4 mg/dL (8.4-10.2); GFR AFRICAN-AMERICAN > 60; GFR NON-AFRICAN AMERICAN > 60
[2017-07-17 17:33] LABS: IRON 30 ug/dL (37-170)
[2017-07-17 17:42] LABS: % IRON SATURATION 13 % (20-55); TOTAL IRON BINDING CAPACITY 241 ug/dL (250-450)
[2017-07-17] MEDS: diltiaZEM 180 mg/24 Hours CD Cap PO SCH (17:44)
[2017-07-17 18:04] LABS: FERRITIN 51.2 ng/Ml (11.1-264.0)
--- NOTE | 2017-07-17 23:43 | CP.PCM.PN ---
Subjective - Date & Time of Evaluation Date of Evaluation: 07/16/17 Time of Evaluation: 10:35 - Subjective Subjective: Patient continues to do well Has no chest pain or SOB Afebrile Was able to eat well. Objective - Vital Signs/Intake and Output Vital Signs (last 24 hours): Temp Pulse Resp BP Pulse Ox 97.3 F L 63 20 90/60 L 100 07/17/17 16:20 07/17/17 16:20 07/17/17 16:20 07/17/17 17:47 07/17/17 16:20 - Medications Medications: Current Medications Acetaminophen (Tylenol 325mg Tab) 650 mg PO Q6 PRN PRN Reason: Pain, Mild (1-3) Last Admin: 07/17/17 10:47 Dose: 650 mg Albuterol/Ipratropium (Duoneb 3 Mg/0.5 Mg (3 Ml) Ud) 3 ml INH RQ6 [facility] Last Admin: 07/17/17 19:19 Dose: 3 ml Alendronate Sodium (Fosamax) 70 mg PO QWK [facility] Last Admin: 07/10/17 09:09 Dose: 70 mg Amiodarone HCl (Cordarone) 200 mg PO DAILY@1300 [facility] Last Admin: 07/17/17 13:30 Dose: Not Given Aspirin (Aspirin Chewable) 81 mg PO DAILY [facility] Last Admin: 07/17/17 09:22 Dose: 81 mg Calcium/Vitamin D (Oyster Shell Calcium/Vitamin D 500 Mg-200 Iu) 1 tab PO DAILY [facility] Last Admin: 07/17/17 09:26 Dose: 1 tab Diltiazem HCl (Cardizem Cd) 180 mg PO QD5 [facility] Last Admin: 07/17/17 17:44 Dose: Not Given Docusate Sodium (Colace) 100 mg PO BID [facility] Last Admin: 07/17/17 17:44 Dose: 100 mg Ferrous Sulfate (Feosol Liq) 300 mg PO TID [facility] Last Admin: 07/17/17 17:45 Dose: 300 mg Furosemide (Lasix) 20 mg PO BID [facility] Last Admin: 07/17/17 17:47 Dose: Not Given Furosemide (Lasix) 20 mg PO ONCE PRN PRN Reason: for HR >90/min. Isosorbide Mononitrate (Imdur Er) 30 mg PO DAILY [facility] Lidocaine (Lidoderm) 1 ea TD DAILY [facility] Last Admin: 07/17/17 09:25 Dose: 1 ea Megestrol Acetate (Megace) 400 mg PO DAILY [facility] Last Admin: 07/17/17 09:25 Dose: 400 mg Metoprolol Succinate (Toprol Xl) 50 mg PO DAILY [facility] Last Admin: 07/17/17 09:28 Dose: 50 mg Sodium Phosphate (Fleet Enema) 135 ml [place] DAILY PRN PRN Reason: Constipation - Labs Labs: 07/17/17 15:00 07/17/17 15:00 PT 12.9 Seconds (9.8-13.1) 07/01/17 15:20 INR 1.2 (0.9-1.2) 07/01/17 15:20 APTT 31.5 Seconds (25.6-37.1) 07/01/17 15:20 - Eye Exam Eye Exam: Normal appearance - ENT Exam ENT Exam: Mucous Membranes Moist - Respiratory Exam Respiratory Exam: Decreased Breath Sounds, NORMAL BREATHING PATTERN - Cardiovascular Exam Cardiovascular Exam: Irregular Rhythm - GI/Abdominal Exam GI & Abdominal Exam: Normal Bowel Sounds - Neurological Exam Neurological Exam: CN II-XII Intact Assessment and Plan (1) Acute exacerbation of CHF (congestive heart failure) Status: Acute (2) Atrial fibrillation Status: Acute (3) Non-STEMI (non-ST elevated myocardial infarction) Status: Acute (4) Anemia Status: Acute - Assessment and Plan (Free Text) Plan: Cont meds Con ttx Cont diuretic discharge plans phys therapy
--- NOTE | 2017-07-17 23:55 | CP.PCM.PN ---
Subjective - Date & Time of Evaluation Date of Evaluation: 07/17/17 Time of Evaluation: 11:00 - Subjective Subjective: Noted very low Hgb 7.3 Has no chest pain or SOB Afebrile Objective - Vital Signs/Intake and Output Vital Signs (last 24 hours): Temp Pulse Resp BP Pulse Ox 97.3 F L 63 20 90/60 L 100 07/17/17 16:20 07/17/17 16:20 07/17/17 16:20 07/17/17 17:47 07/17/17 16:20 - Medications Medications: Current Medications Acetaminophen (Tylenol 325mg Tab) 650 mg PO Q6 PRN PRN Reason: Pain, Mild (1-3) Last Admin: 07/17/17 10:47 Dose: 650 mg Albuterol/Ipratropium (Duoneb 3 Mg/0.5 Mg (3 Ml) Ud) 3 ml INH RQ6 [facility] Last Admin: 07/17/17 19:19 Dose: 3 ml Alendronate Sodium (Fosamax) 70 mg PO QWK [facility] Last Admin: 07/10/17 09:09 Dose: 70 mg Amiodarone HCl (Cordarone) 200 mg PO DAILY@1300 [facility] Last Admin: 07/17/17 13:30 Dose: Not Given Aspirin (Aspirin Chewable) 81 mg PO DAILY [facility] Last Admin: 07/17/17 09:22 Dose: 81 mg Calcium/Vitamin D (Oyster Shell Calcium/Vitamin D 500 Mg-200 Iu) 1 tab PO DAILY [facility] Last Admin: 07/17/17 09:26 Dose: 1 tab Diltiazem HCl (Cardizem Cd) 180 mg PO QD5 [facility] Last Admin: 07/17/17 17:44 Dose: Not Given Docusate Sodium (Colace) 100 mg PO BID [facility] Last Admin: 07/17/17 17:44 Dose: 100 mg Ferrous Sulfate (Feosol Liq) 300 mg PO TID [facility] Last Admin: 07/17/17 17:45 Dose: 300 mg Furosemide (Lasix) 20 mg PO BID [facility] Last Admin: 07/17/17 17:47 Dose: Not Given Furosemide (Lasix) 20 mg PO ONCE PRN PRN Reason: for HR >90/min. Isosorbide Mononitrate (Imdur Er) 30 mg PO DAILY [facility] Lidocaine (Lidoderm) 1 ea TD DAILY [facility] Last Admin: 07/17/17 09:25 Dose: 1 ea Megestrol Acetate (Megace) 400 mg PO DAILY [facility] Last Admin: 07/17/17 09:25 Dose: 400 mg Metoprolol Succinate (Toprol Xl) 50 mg PO DAILY [facility] Last Admin: 07/17/17 09:28 Dose: 50 mg Sodium Phosphate (Fleet Enema) 135 ml [place] DAILY PRN PRN Reason: Constipation - Labs Labs: 07/17/17 15:00 07/17/17 15:00 PT 12.9 Seconds (9.8-13.1) 07/01/17 15:20 INR 1.2 (0.9-1.2) 07/01/17 15:20 APTT 31.5 Seconds (25.6-37.1) 07/01/17 15:20 - Head Exam Head Exam: NORMAL INSPECTION - Eye Exam Eye Exam: Normal appearance - ENT Exam ENT Exam: Mucous Membranes Moist - Respiratory Exam Respiratory Exam: Clear to Ausculation Bilateral, NORMAL BREATHING PATTERN - Cardiovascular Exam Cardiovascular Exam: REGULAR RHYTHM - GI/Abdominal Exam GI & Abdominal Exam: Soft Assessment and Plan (1) Acute exacerbation of CHF (congestive heart failure) Status: Acute (2) Atrial fibrillation Status: Acute (3) Non-STEMI (non-ST elevated myocardial infarction) Status: Acute (4) Anemia Status: Acute - Assessment and Plan (Free Text) Plan: give transfusion cont meds lasix check cbc
[2017-07-18] MEDS: Albuterol-Ipratrop 3 mg / 0.5 (3 ml) UD INH SCH (01:05)
[2017-07-18 08:30] VITALS: RESP 18
[2017-07-18] MEDS: Lidocaine 5% Patch TD SCH (09:00)
[2017-07-18] MEDS: Ferrous Sulfate 300 mg/5 mL Liq UD PO SCH ×3 (09:01→16:40)
[2017-07-18] MEDS: Megestrol Acetate 40 mg/ml Cup PO SCH (09:05)
[2017-07-18] MEDS: Metoprolol Succinate 50 mg XL Tab PO SCH (09:06)
[2017-07-18] MEDS: Calcium-Vit D 500 mg-200 Units Tab UD PO SCH (09:06)
[2017-07-18 12:20] LABS: BASO % 0.5 % (0.0-2.0); EOS # 0.1 K/uL (0.0-0.7); EOS % 2.7 % (0.0-4.0); HEMOGLOBIN 11.2 g/dL (12.0-16.0); LYMPH # 0.6 K/uL (1.0-4.3); LYMPH % 16.6 % (20.0-40.0); MEAN CELL VOLUME 90.7 fl (81.0-99.0); MEAN CORPUSCULAR HEMOGLOBIN 30.7 pg (27.0-31.0); MEAN CORPUSCULAR HGB CONC 33.9 g/dL (33.0-37.0); MEAN PLATELET VOLUME 6.5 fl (7.2-11.7); MONO # 0.3 K/uL (0.0-0.8); MONO % 9.1 % (0.0-10.0); NEUT # 2.4 K/uL (1.8-7.0); NEUT % 71.1 % (50.0-75.0); NRBC % 0.1 % (0.0-0.0); RBC 3.65 Mil/uL (3.80-5.20); WHITE BLOOD COUNT 3.4 K/uL (4.8-10.8)
--- NOTE | 2017-07-18 12:25 | RAD ---
HISTORY: Pneumo 90 is suspected, history of CHF COMPARISON: 07/09/2017 TECHNIQUE: Chest PA and lateral FINDINGS: LUNGS: Improved pulmonary vascular congestion. Residual left lower lobe retrocardiac infiltrate best seen on the lateral view. PLEURA: No significant pleural effusion identified. No pneumothorax apparent. CARDIOVASCULAR: Persisting cardiomegaly. OSSEOUS STRUCTURES: No significant abnormalities. VISUALIZED UPPER ABDOMEN: Normal. OTHER FINDINGS: None. IMPRESSION: Improving pulmonary vascular congestion, persistent left lower lobe infiltrate.
[2017-07-18 12:35] LABS: ALB/GLOB RATIO 0.6 (1.0-2.1); ALBUMIN 3.4 g/dL (3.5-5.0); ALT/SGPT 23 U/L (9-52); AST/SGOT 28 U/L (14-36); BLOOD UREA NITROGEN 21 mg/dl (7-17); CALCIUM 9.8 mg/dL (8.4-10.2); GFR AFRICAN-AMERICAN > 60; GFR NON-AFRICAN AMERICAN > 60
[2017-07-18] MEDS: Piperacillin/Tazobact 3.375 GM in Sodium Chloride 0.9% 50 ML IVPB SCH ×2 (15:07→16:46)
[2017-07-18] MEDS: diltiaZEM 180 mg/24 Hours CD Cap PO SCH (16:41)
--- NOTE | 2017-07-18 18:05 | CP.PCM.DIS ---
Provider - Provider Date of Admission: 07/01/17 20:49 Attending physician: Asim Avelar MD Consults: 86 yr old F admitted for acute on chronic CHF with preserved EF, now with rate controlled A-fib, s/p NSTEMI, anemia of chronic disease. Patients' acute CHF resolved and symptoms improved s/p treatment with lasix, optimization of medications and supplemental oxygen. Patient is medically stable for discharge to TCU for PT/OT. Time Spent in preparation of Discharge (in minutes): 30 Diagnosis - Discharge Diagnosis (1) Acute exacerbation of CHF (congestive heart failure) Status: Resolved Priority: Low (2) Atrial fibrillation Status: Acute Priority: Low (3) Non-STEMI (non-ST elevated myocardial infarction) Status: Acute Priority: Low (4) Anemia of chronic disease Status: Chronic Priority: Low Hospital Course - Lab Results Lab Results: Micro Results 07/14/17 13:30 Naris MRSA Culture (Admit) - Final MRSA NOT DETECTED 07/09/17 15:55 Naris MRSA Culture (Admit) - Final MRSA NOT DETECTED 07/07/17 08:40 Naris MRSA Culture (Admit) - Final MRSA NOT DETECTED 07/01/17 15:30 Blood Blood Culture - Final NO GROWTH AFTER 5 DAYS 07/01/17 15:30 Blood Gram Stain - Final TEST NOT PERFORMED 07/01/17 15:50 Blood Blood Culture - Final NO GROWTH AFTER 5 DAYS 07/01/17 15:50 Blood Gram Stain - Final TEST NOT PERFORMED 07/02/17 08:37 Naris MRSA Culture (Admit) - Final MRSA NOT DETECTED Most Recent Lab Values WBC 3.4 K/uL (4.8-10.8) L 07/18/17 12:00 RBC 3.65 Mil/uL (3.80-5.20) L 07/18/17 12:00 Hgb 11.2 g/dL (12.0-16.0) L D 07/18/17 12:00 Hct 33.1 % (34.0-47.0) L 07/18/17 12:00 MCV 90.7 fl (81.0-99.0) D 07/18/17 12:00 MCH 30.7 pg (27.0-31.0) 07/18/17 12:00 MCHC 33.9 g/dL (33.0-37.0) 07/18/17 12:00 RDW 22.0 % (11.5-14.5) H 07/18/17 12:00 Plt Count 245 K/uL (130-400) 07/18/17 12:00 MPV 6.5 fl (7.2-11.7) L 07/18/17 12:00 Neut % (Auto) 71.1 % (50.0-75.0) 07/18/17 12:00 Lymph % (Auto) 16.6 % (20.0-40.0) L 07/18/17 12:00 [place] % (Auto) 9.1 % (0.0-10.0) 07/18/17 12:00 Eos % (Auto) 2.7 % (0.0-4.0) 07/18/17 12:00 Baso % (Auto) 0.5 % (0.0-2.0) 07/18/17 12:00 Neut # 2.4 K/uL (1.8-7.0) 07/18/17 12:00 Lymph # 0.6 K/uL (1.0-4.3) L 07/18/17 12:00 [place] # 0.3 K/uL (0.0-0.8) 07/18/17 12:00 Eos # 0.1 K/uL (0.0-0.7) 07/18/17 12:00 Baso # 0.0 K/uL (0.0-0.2) 07/18/17 12:00 PT 12.9 Seconds (9.8-13.1) 07/01/17 15:20 INR 1.2 (0.9-1.2) 07/01/17 15:20 APTT 31.5 Seconds (25.6-37.1) 07/01/17 15:20 pCO2 67 mm/Hg (35-45) H 07/12/17 07:45 pO2 191 mm/Hg (80-100) H 07/12/17 07:45 HCO3 42.4 mmol/L (21-28) H* 07/12/17 07:45 ABG pH 7.47 (7.35-7.45) H 07/12/17 07:45 ABG Total CO2 50.9 mmol/L (22-28) H 07/12/17 07:45 ABG O2 Saturation 99.5 % (95-98) H 07/12/17 07:45 ABG O2 Content 12.0 ML/dL (15-23) L 07/12/17 07:45 ABG Base Excess 22.4 mmol/L (-2.0-3.0) H 07/12/17 07:45 ABG Hemoglobin 8.4 g/dL (11.7-17.4) L 07/12/17 07:45 ABG Carboxyhemoglobin 0.4 % (0.5-1.5) L 07/12/17 07:45 POC ABG HHb (Measured) 0.5 % (0.0-5.0) 07/12/17 07:45 ABG Methemoglobin 1.1 % (0.0-3.0) 07/12/17 07:45 ABG O2 Capacity 12.1 mL/dL (16-24) L 07/12/17 07:45 [place]am Test Yes 07/12/17 07:45 ABG Potassium 3.3 mmol/L (3.6-5.2) L 07/01/17 15:26 A-a O2 Difference -47.0 mm/Hg 07/12/17 07:45 Hgb O2 Saturation 97.9 % (95.0-98.0) 07/12/17 07:45 Sodium 140.0 mmol/L (132-148) 07/01/17 15:26 Chloride 103.0 mmol/L (98-107) 07/01/17 15:26 Glucose 105 mg/dL (65-105) 07/01/17 15:26 Lactate 0.8 mmol/L (0.7-2.1) 07/01/17 15:26 FiO2 32.0 % 07/12/17 07:45 Crit Value Called To Shaylee walker 07/12/17 07:45 Crit Value Called By 23 07/12/17 07:45 Crit Value Read Back Y 07/12/17 07:45 Blood Gas Notified Time 803 07/12/17 07:45 Sodium 143 mmol/l (132-148) 07/18/17 12:00 Potassium 4.1 MMOL/L (3.6-5.0) 01/30/18 12:00 Chloride 96 mmol/L (98-107) L 07/18/17 12:00 Carbon Dioxide 36 mmol/L (22-30) H 07/18/17 12:00 Anion Gap 15 (10-20) 07/18/17 12:00 BUN 21 mg/dl (7-17) H 07/18/17 12:00 Creatinine 0.7 mg/dl (0.7-1.2) 07/18/17 12:00 Est GFR ( Amer) > 60 07/18/17 12:00 Est GFR (Non-Af Amer) > 60 07/18/17 12:00 POC Glucose (mg/dL) 146 mg/dL (65-110) H 07/05/17 05:25 Random Glucose 95 mg/dL (65-105) 07/18/17 12:00 Calcium 9.8 mg/dL (8.4-10.2) 07/18/17 12:00 Phosphorus 3.4 mg/dl (2.5-4.5) 07/03/17 10:38 Magnesium 2.1 MG/DL (1.6-2.3) 07/03/17 10:38 Iron 30 ug/dL (37-170) L 07/17/17 17:10 TIBC 241 ug/dL (250-450) L 07/17/17 17:10 % Saturation 13 % (20-55) L 07/17/17 17:10 Ferritin 51.2 ng/Ml (11.1-264.0) 07/17/17 17:10 Total Bilirubin 0.6 mg/dl (0.2-1.3) 07/18/17 12:00 AST 28 U/L (14-36) 07/18/17 12:00 ALT 23 U/L (9-52) 07/18/17 12:00 Alkaline Phosphatase 56 U/L (38-126) 07/18/17 12:00 Troponin I 0.1800 ng/mL (0.00-0.120) H* 07/03/17 11:16 NT-Pro-B Natriuret Pep 4830 pg/ml (0-900) H 07/09/17 14:45 Total Protein 8.8 G/DL (6.3-8.2) H 07/18/17 12:00 Albumin 3.4 g/dL (3.5-5.0) L 07/18/17 12:00 Globulin 5.4 gm/dL (2.2-3.9) H 07/18/17 12:00 Albumin/Globulin Ratio 0.6 (1.0-2.1) L 07/18/17 12:00 Vitamin B12 479 pg/mL (239-931) 07/17/17 17:10 TSH 3rd Generation 1.19 mIU/ML (0.46-4.68) 07/03/17 04:35 Arterial Blood Potassium 3.3 mmol/L (3.6-5.2) L 07/01/17 15:26 Influenza Typ A,B (EIA) Negative for flu a/b (NEGATIVE) 07/01/17 15:20 Blood Type A POSITIVE 07/17/17 17:10 Blood Type Confirm A POSITIVE 07/05/17 07:27 Antibody Screen Negative 07/17/17 17:10 Crossmatch See Detail 07/17/17 17:10 BBK History Checked Patient has bt 07/17/17 17:10 - Date & Time of H&P Date of H&P: 07/02/17 Time of H&P: 14:39 Discharge Exam - Head Exam Head Exam: NORMAL INSPECTION - Eye Exam Eye Exam: EOMI, PERRL - ENT Exam ENT Exam: Mucous Membranes Moist - Neck Exam Neck exam: Full Rom - Respiratory Exam Respiratory Exam: NORMAL BREATHING PATTERN - Cardiovascular Exam Cardiovascular Exam: Irregular Rhythm, +S1, +S2 - GI/Abdominal Exam GI & Abdominal Exam: Normal Bowel Sounds, Soft - Extremities Exam Extremities exam: full ROM - Neurological Exam Neurological exam: Alert, CN II-XII Intact, Oriented x3 - Psychiatric Exam Psychiatric exam: Normal Affect, Normal Mood - Skin Skin Exam: Dry, Normal Color, Warm Discharge Plan - Discharge Medications Prescriptions: Piperacillin Sodium/Tazobactam [Zosyn 3.375 Gram Vial] 3.375 gm IV Q8 #21 vial - Follow Up Plan Condition: GUARDED Disposition: REHAB FACILITY/REHAB UNIT Instructions: Heart Failure (DC), Acute Bronchitis (GEN) Clinical Quality Measures - CQM - Heart Failure Ejection Fraction: 40 % or Greater Left Ventricular Function to be assessed after discharge: No RAUDEL Inhibitor Prescribed: No Contraindication/Reason for not providing: not required at this time Beta-Laila Prescribed: Metoprolol Succinate Angiotensin II Receptor Laila Prescribed: No Contraindication/Reason for not providing: not required at this time AnticoagulationTherapy for Atrial Fibrillation/Atrialflutter: No Contraindication/Reason for not providing: recurrent acute in chronic anemia Aldosterone Antagonist Prescribed: No Contraindication/Reason for not providing: not required at this time Hydralazine Nitrate Prescribed: No Contraindication/Reason for not providing: not required at this time Implantable Cardioverter Defibrillator Therapy: No Contraindication/Reason for not providing: not recommended at this time Cardiac Resynchronization Therapy Prescribed: No Contraindication/Reason for not providing: not recommended at this time Will be discharged to: Group Home Facility (patient discharged to TCU) Follow Up Date (must be within 7 days from discharge): 07/19/17 Follow Up Time: 09:00 - Date & Time of Discharge Summary Date of Discharge Summary: 07/18/17 Time of Discharge Summary: 18:12
[2017-07-18 20:45] VITALS: BP 118/66; PULSE 55; TEMP 97.5; O2SAT 98
== END 2017-07-18 20:35 | DRG 281 ==
LOC: H.ER 14:26 → H.ERHOLD 20:49 → H.TEL 23:02 → H.ICU/CCU 07-02 23:15 → H.MEDSURG1 07-07 17:50 → H.ICU/CCU 07-09 14:23 → H.MEDSURG1 07-14 22:00
PROVIDERS: ADMIT Family Medicine; ATTEND Family Medicine
PROC: 3E0F7GC Introduction of Other Therapeutic Substance into Respiratory Tract, Via Natural or Artificial Opening (ICD-10-PCS; principal; 2017-07-01)
PROC: 3E0234Z Introduction of Serum, Toxoid and Vaccine into Muscle, Percutaneous Approach (ICD-10-PCS; 2017-07-02)
PROC: 30233N1 Transfusion of Nonautologous Red Blood Cells into Peripheral Vein, Percutaneous Approach (ICD-10-PCS; 2017-07-18)
DX: I11.0 Hypertensive heart disease with heart failure (principal); I21.4 Non-ST elevation (NSTEMI) myocardial infarction; I48.1 Persistent atrial fibrillation; I95.9 Hypotension, unspecified; R64 Cachexia; R06.03 Acute respiratory distress; E86.0 Dehydration; I27.20 Pulmonary hypertension, unspecified; I48.92 Unspecified atrial flutter; J98.11 Atelectasis; Z68.1 Body mass index [BMI] 19.9 or less, adult; I50.33 Acute on chronic diastolic (congestive) heart failure; D63.8 Anemia in other chronic diseases classified elsewhere; I34.0 Nonrheumatic mitral (valve) insufficiency; J20.9 Acute bronchitis, unspecified; E78.00 Pure hypercholesterolemia, unspecified; M81.0 Age-related osteoporosis without current pathological fracture; Z79.899 Other long term (current) drug therapy; K59.00 Constipation, unspecified; R00.1 Bradycardia, unspecified; R29.6 Repeated falls; M54.9 Dorsalgia, unspecified; R00.0 Tachycardia, unspecified; R00.2 Palpitations; R79.89 Other specified abnormal findings of blood chemistry; Z23 Encounter for immunization

== ENCOUNTER 2017-07-18 14:45 | Inpatient (IN) | payer OTHER ==
[2017-07-18 20:49] VITALS: BMI 15.2
[2017-07-19] MEDS: Albuterol-Ipratrop 3 mg / 0.5 (3 ml) UD INH SCH ×4 (01:08→19:46)
[2017-07-19] MEDS: Piperacillin/Tazobact 3.375 GM in Sodium Chloride 0.9% 50 ML IVPB SCH ×3 (04:46→21:04)
[2017-07-19] MEDS ORDERED: ALENDRONATE 70 MG TAB PO SCH (07:30)
[2017-07-19] MEDS: Lidocaine 5% Patch TD SCH (08:30)
[2017-07-19] MEDS: Calcium-Vit D 500 mg-200 Units Tab UD PO SCH (08:33)
[2017-07-19] MEDS: Ferrous Sulfate 300 mg/5 mL Liq UD PO SCH ×3 (08:34→16:59)
[2017-07-19] MEDS: Metoprolol Succinate 50 mg XL Tab PO SCH (10:52)
[2017-07-19] MEDS: Megestrol Acetate 40 mg/ml Cup PO SCH (13:06)
[2017-07-19] MEDS ORDERED: diltiaZEM 180 mg/24 Hours CD Cap PO SCH (17:00)
--- NOTE | 2017-07-19 18:48 | CP.PCM.CON ---
History of Present Illness - History of Present Illness History of Present Illness: Patient is a 86 year odl female with PMH atrial fibrillation who presents for rehab. She required ICU admisssion for rapdi atrial fibrillation. she required eventual amiodarone theapy. she is currently asymptomatic. Review of Systems - Constitutional Constitutional: Weakness - EENT Eyes: absent: As Per HPI, Blind Spots, Blurred Vision, Change in Vision, Decreased Night Vision, Diplopia, Discharge, Dry Eye, Exophthalmos, Floaters, Irritation, Itchy Eyes, Loss of Peripheral Vision, Pain, Photophobia, Requires Corrective Lenses, Sees Flashes, Spots in Vision, Tunnel Vision, Other Visual Disturbances, Loss of Vision, Other Ears: absent: As Per HPI, Decreased Hearing, Ear Discharge, Ear Pain, Tinnitus, Abnormal Hearing, Disequilibrium, Dizziness, Other Nose/Mouth/Throat: absent: As Per HPI, Epistaxis, Nasal Congestion, Nasal Discharge, Nasal Obstruction, Nasal Trauma, Nose Pain, Post Nasal Drip, Sinus Pain, Sinus Pressure, Bleeding Gums, Change in Voice, Dental Pain, Dry Mouth, Dysphagia, Halitosis, Hoarsness, Lip Swelling, Mouth Lesions, Mouth Pain, Odynophagia, Sore Throat, Throat Swelling, Tongue Swelling, Facial Pain, Neck Pain, Neck Mass, Other - Cardiovascular Cardiovascular: absent: As Per HPI, Acrocyanosis, Chest Pain, Chest Pain at Rest , Chest Pain with Activity, Claudication, Diaphoresis, Dyspnea, Dyspnea on Exertion, Edema, Irregular Heart Rhythm, Pain Radiating to Arm/Neck/Jaw, Leg Edema, Leg Ulcers, Lightheadedness, Orthopnea, Palpitations, Paroxysmal Nocturnal Dyspnea, Pedal Edema, Radiating Pain, Rapid Heart Rate, Slow Heart Rate, Syncope, Other - Gastrointestinal Gastrointestinal: absent: As Per HPI, Abdominal Pain, Belching, Bloating, Change in Bowel Habits, Change in Stool Character, Coffee Ground Emesis, Constipation, Cramping, Diarrhea, Dyspepsia, Dysphagia, Early Satiety, Excessive Flatus, Fecal Incontinence, Heartburn, Hematemesis, Hematochezia, Loose Stools, Melena, Nausea, Odynophagia, Temesmus, Vomiting, Other - Genitourinary Genitourinary: absent: As Per HPI, Change in Urinary Stream, Difficulty Urinating, Dysuria, Flank Pain, Hematuria, Pyuria, Nocturia, Urinary Incontinence, Urinary Frequency, Urinary Hesitance, Urinary Urgency, Voiding Freq/Small Amts, Freq UTI, Hx Renal/Bladder Calculi, Hx /Renal Surgery, Bladder Distension, Other - Musculoskeletal Musculoskeletal: Muscle Weakness - Integumentary Integumentary: absent: As Per HPI, Acne, Alopecia, Bleeding Lesions, Change in Hair, Change in Nails, Change in Pigmentation, Changing Lesions, Dry Skin, Erythema, Furuncle, Hirsutism, Lesions, New Lesions, Non-Healing Lesions, Photosensitivity, Pruritus, Rash, Skin Pain, Skin Ulcer, Sores, Striae, Swelling , Unusual Bruising, Wounds, Jaundice, Other - Neurological Neurological: absent: As Per HPI, Abnormal Gait, Abnormal Hearing, Abnormal Movements, Abnormal Speech, Behavioral Changes, Burning Sensations, Confusion, Convulsions, Disequilibrium, Dizziness, Numbness, Focal Weakness, Frequent Falls , Headaches, Lack of Coordination, Loss of Vision, Memory Loss, Paresthesias, Radicular Pain, Restless Legs, Sensory Deficit, Syncope, Tingling, Tremor, Vertigo, Weakness, Other Visual Disturbances, Other - Endocrine Endocrine: absent: As Per HPI, Change in Body Appearance, Change in Libido, Cold Intolorance, Deepening of Voice, Excessive Sweating, Fatigue, Flushing, Heat Intolorance, Increase in Ring/Shoe/Hat Size, Palpitations, Polydipsia, Polyphagia, Polyuria, Other - Hematologic/Lymphatic Hematologic: absent: As Per HPI, Easy Bleeding, Easy Bruising, Lymphadenopathy, Other Past Patient History - Tetanus Immunizations Tetanus Immunization: Unknown - Past Medical History & Family History Past Medical History?: Yes - Past Social History Smoking Status: Never Smoked - CARDIAC Hx Cardiac Disorders: Yes Hx Atrial Fibrillation: Yes Hx Hypercholesterolemia: Yes Hx Hypertension: Yes - PULMONARY Hx Respiratory Disorders: Yes Hx Bronchitis: Yes Hx Pneumonia: Yes - NEUROLOGICAL Hx Neurological Disorder: No HX Cerebrovascular Accident: No - HEENT Hx HEENT Problems: No - RENAL Hx Chronic Kidney Disease: No - ENDOCRINE/METABOLIC Hx Hypothyroidism: No - HEMATOLOGICAL/ONCOLOGICAL Hx Anemia: Yes - INTEGUMENTARY Hx Dermatological Problems: No - MUSCULOSKELETAL/RHEUMATOLOGICAL Hx Musculoskeletal Disorders: Yes Hx Falls: No Hx Osteoporosis: Yes - GASTROINTESTINAL Hx Gastrointestinal Disorders: Yes Hx Constipation: Yes - GENITOURINARY/GYNECOLOGICAL Hx Genitourinary Disorders: No - PSYCHIATRIC Hx Substance Use: No - SURGICAL HISTORY Hx Surgeries: No - ANESTHESIA Hx Anesthesia: Yes Hx Anesthesia Reactions: No Hx Malignant Hyperthermia: No Meds Allergies/Adverse Reactions: Allergies Allergy/AdvReac Type Severity Reaction Status Date / Time No Known Allergies Allergy Verified 11/06/16 12:32 - Medications Medications: Current Medications Acetaminophen (Tylenol 325mg Tab) 650 mg PO Q6 PRN PRN Reason: Pain, Mild (1-3) Albuterol/Ipratropium (Duoneb 3 Mg/0.5 Mg (3 Ml) Ud) 3 ml INH RQ6 [facility] Last Admin: 07/19/17 13:19 Dose: 3 ml Alendronate Sodium (Fosamax) 70 mg PO QWK [facility] Amiodarone HCl (Cordarone) 200 mg PO DAILY@1300 [facility] Last Admin: 07/19/17 13:47 Dose: 200 mg Aspirin (Aspirin Chewable) 81 mg PO DAILY [facility] Last Admin: 07/19/17 08:31 Dose: 81 mg Calcium/Vitamin D (Oyster Shell Calcium/Vitamin D 500 Mg-200 Iu) 1 tab PO DAILY [facility] Last Admin: 07/19/17 08:33 Dose: 1 tab Diltiazem HCl (Cardizem Cd) 180 mg PO QD5 [facility] Last Admin: 07/19/17 16:59 Dose: 180 mg Docusate Sodium (Colace) 100 mg PO BID [facility] Last Admin: 07/19/17 16:59 Dose: 100 mg Ferrous Sulfate (Feosol Liq) 300 mg PO TID [facility] Last Admin: 07/19/17 16:59 Dose: 300 mg Furosemide (Lasix) 20 mg PO BID [facility] Last Admin: 07/19/17 17:08 Dose: 20 mg Piperacillin Sod/Tazobactam (Sod 3.375 gm/ Sodium Chloride) 50 mls @ 50 mls/hr IVPB 0500,1300,2100 [facility] PRN Reason: Protocol Last Admin: 07/19/17 13:05 Dose: 50 mls/hr Lidocaine (Lidoderm) 1 ea TD DAILY [facility] Last Admin: 07/19/17 08:30 Dose: 1 ea Megestrol Acetate (Megace) 400 mg PO DAILY [facility] Last Admin: 07/19/17 13:06 Dose: 400 mg Metoprolol Succinate (Toprol Xl) 50 mg PO DAILY [facility] Last Admin: 07/19/17 10:52 Dose: Not Given Physical Exam - Constitutional Appears: Cachectic - Head Exam Head Exam: NORMAL INSPECTION - Eye Exam Eye Exam: Normal appearance - ENT Exam ENT Exam: Mucous Membranes Moist - Neck Exam Neck exam: Positive for: Full Rom - Respiratory Exam Respiratory Exam: Decreased Breath Sounds - Cardiovascular Exam Cardiovascular Exam: REGULAR RHYTHM - GI/Abdominal Exam GI & Abdominal Exam: Normal Bowel Sounds - Rectal Exam Rectal Exam: Deferred - Extremities Exam Extremities exam: Negative for: pedal edema - Back Exam Back exam: NORMAL INSPECTION - Neurological Exam Neurological exam: Alert, Oriented x3 - Psychiatric Exam Psychiatric exam: Normal Affect - Skin Skin Exam: Normal Color Results - Vital Signs Recent Vital Signs: Last Vital Signs Temp 98.0 F 07/19/17 10:00 Pulse 69 07/19/17 16:59 Resp 18 07/19/17 10:00 BP 108/64 07/19/17 17:08 Pulse Ox 98 07/19/17 14:03 - Labs Result Diagrams: 07/20/17 05:55 07/20/17 05:55 - EKG Data EKG Interpreted by: Myself Assessment & Plan (1) Atrial fibrillation Assessment and Plan: rate controlled and in sinus rhythm. conitnue amiodarone. Status: Acute Priority: Low
[2017-07-19 19:47] VITALS: RESP 20
--- NOTE | 2017-07-19 23:00 | CP.PCM.HP ---
<Miranda Beatty - Last Filed: 07/19/17 22:58> History of Present Illness - History of Present Illness History of Present Illness: 86 yr old F admitted to TCU for PT/OT s/p discharge from med/surg for acute on chronic CHF with preserved EF, now with rate controlled A-fib, s/p NSTEMI, anemia of chronic disease. Patients' acute CHF resolved and symptoms improved s/ p treatment with lasix, optimization of medications and supplemental oxygen. Patient is medically stable for PT/OT. PMHx: CHF with preserved EF, rate controlled A-fib, osteoporosis, vertebral compression fractures SurgHx: none FMHx: noncontributory SocHx: denies tobacco, Etoh or drugs; lives with daughter and has home health aid Medications: see mediation reconciliation Allergies: NKDA Present on Admission - Present on Admission Any Indicators Present on Admission: No History of DVT/PE: No History of Uncontrolled Diabetes: No Urinary Catheter: No Decubitus Ulcer Present: No History Surgical Site Infection Following: None Review of Systems - Constitutional Constitutional: absent: Chills, Weakness - EENT Eyes: absent: Blurred Vision, Change in Vision Ears: absent: Ear Discharge, Ear Pain Nose/Mouth/Throat: absent: Nasal Congestion, Nasal Discharge - Cardiovascular Cardiovascular: absent: Chest Pain, Pedal Edema, Rapid Heart Rate - Respiratory Respiratory: absent: Cough, Dyspnea - Gastrointestinal Gastrointestinal: absent: Nausea, Vomiting - Genitourinary Genitourinary: absent: Difficulty Urinating, Dysuria - Musculoskeletal Musculoskeletal: absent: Neck Pain - Neurological Neurological: absent: Syncope - Psychiatric Psychiatric: absent: Anxiety - Endocrine Endocrine: absent: Polydipsia, Polyuria - Hematologic/Lymphatic Hematologic: absent: Easy Bleeding, Easy Bruising Past Patient History - Tetanus Immunizations Tetanus Immunization: Unknown - Past Medical History & Family History Past Medical History?: Yes - Past Social History Smoking Status: Never Smoked - CARDIAC Hx Cardiac Disorders: Yes Hx Atrial Fibrillation: Yes Hx Hypercholesterolemia: Yes Hx Hypertension: Yes - PULMONARY Hx Respiratory Disorders: Yes Hx Bronchitis: Yes Hx Pneumonia: Yes - NEUROLOGICAL Hx Neurological Disorder: No HX Cerebrovascular Accident: No - HEENT Hx HEENT Problems: No - RENAL Hx Chronic Kidney Disease: No - ENDOCRINE/METABOLIC Hx Hypothyroidism: No - HEMATOLOGICAL/ONCOLOGICAL Hx Anemia: Yes - INTEGUMENTARY Hx Dermatological Problems: No - MUSCULOSKELETAL/RHEUMATOLOGICAL Hx Musculoskeletal Disorders: Yes Hx Falls: No Hx Osteoporosis: Yes - GASTROINTESTINAL Hx Gastrointestinal Disorders: Yes Hx Constipation: Yes - GENITOURINARY/GYNECOLOGICAL Hx Genitourinary Disorders: No - PSYCHIATRIC Hx Substance Use: No - SURGICAL HISTORY Hx Surgeries: No - ANESTHESIA Hx Anesthesia: Yes Hx Anesthesia Reactions: No Hx Malignant Hyperthermia: No Meds Allergies/Adverse Reactions: Allergies Allergy/AdvReac Type Severity Reaction Status Date / Time No Known Allergies Allergy Verified 11/06/16 12:32 Physical Exam - Constitutional Appears: Cachectic, Chronically Ill - Head Exam Head Exam: ATRAUMATIC, NORMOCEPHALIC - Eye Exam Eye Exam: EOMI, PERRL - ENT Exam ENT Exam: Mucous Membranes Moist - Neck Exam Neck exam: Positive for: Full Rom - Respiratory Exam Respiratory Exam: NORMAL BREATHING PATTERN - Cardiovascular Exam Cardiovascular Exam: Irregular Rhythm, +S1, +S2 - GI/Abdominal Exam GI & Abdominal Exam: Normal Bowel Sounds, Soft. absent: Tenderness - Extremities Exam Extremities exam: Positive for: full ROM. Negative for: calf tenderness, pedal edema - Neurological Exam Neurological exam: Alert, CN II-XII Intact, Oriented x3 - Psychiatric Exam Psychiatric exam: Normal Affect, Normal Mood - Skin Skin Exam: Abrasion (right distal lower extremity), Dry, Normal Color, Warm Results - Vital Signs Recent Vital Signs: Last Vital Signs Temp 97.2 F L 07/19/17 19:46 Pulse 71 07/19/17 19:46 Resp 20 07/19/17 19:46 BP 108/53 L 07/19/17 19:46 Pulse Ox 96 07/19/17 19:46 Assessment & Plan - Assessment and Plan (Free Text) Assessment: 86 yr old F admitted to TCU for PT/OT. Patient is medically stable. Patient has small frame and BMI of 15.3 secondary to chronic poor appetite. -Cardiology consult appreciated: will follow recommendations -f/u CBC, CMP -wound care -heart healthy diet -Megace 400mg PO daily -lasix 20mg PO BID -Diltiazem CD 180mg PO QD5 -PT/OT -f/u CBC, CMP -DVT prophylaxis: SCD's PRN - Date & Time Date: 07/19/17 Time: 10:00 <Maximo Luque - Last Filed: 07/24/17 18:26> Results - Vital Signs Recent Vital Signs: Last Vital Signs Temp 97.7 F 07/24/17 16:17 Pulse 78 07/24/17 16:48 Resp 20 07/24/17 16:17 BP 116/63 07/24/17 16:48 Pulse Ox 97 07/24/17 16:17 - Labs Result Diagrams: 07/20/17 05:55 07/20/17 05:55
[2017-07-20] MEDS: Albuterol-Ipratrop 3 mg / 0.5 (3 ml) UD INH SCH ×4 (01:05→20:28)
[2017-07-20] MEDS: Piperacillin/Tazobact 3.375 GM in Sodium Chloride 0.9% 50 ML IVPB SCH (05:09)
[2017-07-20 07:27] LABS: BASO % 0.1 % (0.0-2.0); EOS # 0.1 K/uL (0.0-0.7); EOS % 2.7 % (0.0-4.0); HEMOGLOBIN 10.2 g/dL (12.0-16.0); LYMPH # 0.6 K/uL (1.0-4.3); LYMPH % 20.1 % (20.0-40.0); MEAN CELL VOLUME 92.5 fl (81.0-99.0); MEAN CORPUSCULAR HEMOGLOBIN 30.1 pg (27.0-31.0); MEAN CORPUSCULAR HGB CONC 32.6 g/dL (33.0-37.0); MEAN PLATELET VOLUME 6.8 fl (7.2-11.7); MONO # 0.2 K/uL (0.0-0.8); MONO % 6.8 % (0.0-10.0); NEUT # 2.2 K/uL (1.8-7.0); NEUT % 70.3 % (50.0-75.0); NRBC % 0.1 % (0.0-0.0); RBC 3.4 Mil/uL (3.80-5.20); RED CELL DISTRIBUTION WIDTH 21.7 % (11.5-14.5); WHITE BLOOD COUNT 3.1 K/uL (4.8-10.8)
[2017-07-20 07:46] LABS: ALB/GLOB RATIO 0.6 (1.0-2.1); ALBUMIN 3.2 g/dL (3.5-5.0); ALT/SGPT 20 U/L (9-52); AST/SGOT 23 U/L (14-36); BLOOD UREA NITROGEN 26 mg/dl (7-17); CALCIUM 9.1 mg/dL (8.4-10.2); GFR AFRICAN-AMERICAN > 60; GFR NON-AFRICAN AMERICAN > 60
[2017-07-20] MEDS: Calcium-Vit D 500 mg-200 Units Tab UD PO SCH (08:57)
[2017-07-20] MEDS: Ferrous Sulfate 300 mg/5 mL Liq UD PO SCH ×3 (08:58→16:15)
[2017-07-20] MEDS: Megestrol Acetate 40 mg/ml Cup PO SCH (08:59)
[2017-07-20] MEDS: Metoprolol Succinate 50 mg XL Tab PO SCH (08:59)
[2017-07-20] MEDS: Lidocaine 5% Patch TD SCH (09:00)
[2017-07-20] MEDS: Metoprolol Succinate 25 mg XL Tab PO SCH (10:50)
--- NOTE | 2017-07-20 12:27 | CP.PCM.PN ---
Subjective - Date & Time of Evaluation Date of Evaluation: 07/20/17 Time of Evaluation: 12:22 - Subjective Subjective: - Patient was seen and examined up and out of bed. She was seen sitting comfortably in the chair. Last night patient developed a diffuse rash over her abdomen, chest and groin region. Overnight nurse had noted it and she was given Benadryl by overnight resident, which did not provide relief. Rash was not pruitic or painful. Patients IV antibiotics will be D/C today for possible cause of rash Objective - Vital Signs/Intake and Output Vital Signs (last 24 hours): Temp Pulse Resp BP Pulse Ox 96.3 F L 63 20 103/56 L 99 07/20/17 09:00 07/20/17 09:09 07/20/17 09:00 07/20/17 09:09 07/20/17 09:09 - Medications Medications: Current Medications Acetaminophen (Tylenol 325mg Tab) 650 mg PO Q6 PRN PRN Reason: Pain, Mild (1-3) Albuterol/Ipratropium (Duoneb 3 Mg/0.5 Mg (3 Ml) Ud) 3 ml INH RQ6 [facility] Last Admin: 07/20/17 07:27 Dose: 3 ml Alendronate Sodium (Fosamax) 70 mg PO QWK [facility] Amiodarone HCl (Cordarone) 200 mg PO DAILY@1300 [facility] Last Admin: 07/19/17 13:47 Dose: 200 mg Aspirin (Aspirin Chewable) 81 mg PO DAILY [facility] Last Admin: 07/20/17 08:57 Dose: 81 mg Calcium/Vitamin D (Oyster Shell Calcium/Vitamin D 500 Mg-200 Iu) 1 tab PO DAILY [facility] Last Admin: 07/20/17 08:57 Dose: 1 tab Diltiazem HCl (Cardizem Cd) 120 mg PO QD5 [facility] Docusate Sodium (Colace) 100 mg PO BID [facility] Last Admin: 07/20/17 08:57 Dose: 100 mg Ferrous Sulfate (Feosol Liq) 300 mg PO TID [facility] Last Admin: 07/20/17 08:58 Dose: 300 mg Furosemide (Lasix) 20 mg PO BID [facility] Last Admin: 07/19/17 17:08 Dose: 20 mg Lidocaine (Lidoderm) 1 ea TD DAILY [facility] Last Admin: 07/19/17 08:30 Dose: 1 ea Megestrol Acetate (Megace) 400 mg PO DAILY [facility] Last Admin: 07/20/17 08:59 Dose: 400 mg Metoprolol Succinate (Toprol Xl) 25 mg PO DAILY [facility] - Labs Labs: 07/20/17 05:55 07/20/17 05:55 - Constitutional Appears: No Acute Distress - Head Exam Head Exam: NORMAL INSPECTION - ENT Exam ENT Exam: Mucous Membranes Moist - Respiratory Exam Respiratory Exam: Clear to Ausculation Bilateral, NORMAL BREATHING PATTERN. absent: Rhonchi, Wheezes - Cardiovascular Exam Cardiovascular Exam: REGULAR RHYTHM, +S1, +S2 - Extremities Exam Extremities Exam: Normal Inspection. absent: Calf Tenderness - Neurological Exam Neurological Exam: Alert, Awake, Oriented x3 - Skin Additional comments: Diffuse flat rash over chest, abdomen and groin region, non pruitic Abrasion ( right distal lower extremity) Assessment and Plan - Assessment and Plan (Free Text) Assessment: 86 yr old F admitted to TCU for PT/OT. Patient is medically stable. Patient has small frame and BMI of 15.3 secondary to chronic poor appetite. -Cardiology consult appreciated: will follow recommendations -wound care -heart healthy diet -Megace 400mg PO daily -lasix 20mg PO BID -Diltiazem CD 120mg PO QD5 - Metoprolol 25 - D/C Antibiotics since patient developed a new onset of rash. -PT/OT -DVT prophylaxis: SCD's PRN
[2017-07-20] MEDS: diltiaZEM 120 mg/24 Hours CD Cap PO SCH (16:13)
[2017-07-21] MEDS: Albuterol-Ipratrop 3 mg / 0.5 (3 ml) UD INH SCH ×4 (01:20→21:15)
[2017-07-21] MEDS: Ferrous Sulfate 300 mg/5 mL Liq UD PO SCH ×3 (08:33→17:05)
[2017-07-21] MEDS: Metoprolol Succinate 25 mg XL Tab PO SCH (08:34)
[2017-07-21] MEDS: Megestrol Acetate 40 mg/ml Cup PO SCH (08:34)
[2017-07-21] MEDS: Calcium-Vit D 500 mg-200 Units Tab UD PO SCH (08:34)
[2017-07-21] MEDS: Lidocaine 5% Patch TD SCH (08:34)
[2017-07-21] MEDS: diltiaZEM 120 mg/24 Hours CD Cap PO SCH (17:05)
[2017-07-22] MEDS: Albuterol-Ipratrop 3 mg / 0.5 (3 ml) UD INH SCH ×4 (00:59→20:25)
[2017-07-22] MEDS: Lidocaine 5% Patch TD SCH (08:36)
[2017-07-22] MEDS: Megestrol Acetate 40 mg/ml Cup PO SCH (08:36)
[2017-07-22] MEDS: Ferrous Sulfate 300 mg/5 mL Liq UD PO SCH ×3 (08:36→16:43)
[2017-07-22] MEDS: Calcium-Vit D 500 mg-200 Units Tab UD PO SCH (08:37)
[2017-07-22] MEDS: Metoprolol Succinate 25 mg XL Tab PO SCH (08:37)
--- NOTE | 2017-07-22 11:58 | CP.PCM.PN ---
Subjective - Date & Time of Evaluation Date of Evaluation: 07/22/17 Time of Evaluation: 11:57 - Subjective Subjective: Patient remians stable. Objective - Vital Signs/Intake and Output Vital Signs (last 24 hours): Temp Pulse Resp BP Pulse Ox 97.0 F L 63 20 116/62 95 07/22/17 08:04 07/22/17 08:37 07/22/17 08:04 07/22/17 08:37 07/22/17 08:04 - Medications Medications: Current Medications Acetaminophen (Tylenol 325mg Tab) 650 mg PO Q6 PRN PRN Reason: Pain, Mild (1-3) Albuterol/Ipratropium (Duoneb 3 Mg/0.5 Mg (3 Ml) Ud) 3 ml INH RQ6 [facility] Last Admin: 07/22/17 07:29 Dose: 3 ml Alendronate Sodium (Fosamax) 70 mg PO QWK [facility] Amiodarone HCl (Cordarone) 200 mg PO DAILY@1300 [facility] Last Admin: 07/21/17 12:47 Dose: 200 mg Aspirin (Aspirin Chewable) 81 mg PO DAILY [facility] Last Admin: 07/22/17 08:36 Dose: 81 mg Calcium/Vitamin D (Oyster Shell Calcium/Vitamin D 500 Mg-200 Iu) 1 tab PO DAILY [facility] Last Admin: 07/22/17 08:37 Dose: 1 tab Diltiazem HCl (Cardizem Cd) 120 mg PO QD5 [facility] Last Admin: 07/21/17 17:05 Dose: 120 mg Diphenhydramine HCl (Benadryl) 25 mg PO HS PRN PRN Reason: Rash Docusate Sodium (Colace) 100 mg PO BID [facility] Last Admin: 07/22/17 08:37 Dose: 100 mg Ferrous Sulfate (Feosol Liq) 300 mg PO TID [facility] Last Admin: 07/22/17 08:36 Dose: 300 mg Furosemide (Lasix) 20 mg PO BID [facility] Last Admin: 07/22/17 08:37 Dose: 20 mg Lactic Acid (Lac-Hydrin 12% Lotion (225 G)) 1 applic TOP Q12 [facility] Last Admin: 07/22/17 08:35 Dose: 1 unit Lidocaine (Lidoderm) 1 ea TD DAILY [facility] Last Admin: 07/22/17 08:36 Dose: 1 ea Megestrol Acetate (Megace) 400 mg PO DAILY [facility] Last Admin: 07/22/17 08:36 Dose: 400 mg Metoprolol Succinate (Toprol Xl) 25 mg PO DAILY [facility] Last Admin: 07/22/17 08:37 Dose: 25 mg - Labs Labs: 07/20/17 05:55 07/20/17 05:55
[2017-07-22] MEDS: diltiaZEM 120 mg/24 Hours CD Cap PO SCH (16:43)
[2017-07-23] MEDS: Albuterol-Ipratrop 3 mg / 0.5 (3 ml) UD INH SCH ×4 (01:04→19:32)
[2017-07-23] MEDS: Ferrous Sulfate 300 mg/5 mL Liq UD PO SCH ×3 (10:00→16:44)
[2017-07-23] MEDS: Metoprolol Succinate 25 mg XL Tab PO SCH (10:00)
[2017-07-23] MEDS: Calcium-Vit D 500 mg-200 Units Tab UD PO SCH (10:00)
[2017-07-23] MEDS: Megestrol Acetate 40 mg/ml Cup PO SCH (10:01)
[2017-07-23] MEDS: Lidocaine 5% Patch TD SCH (10:02)
[2017-07-23] MEDS: diltiaZEM 120 mg/24 Hours CD Cap PO SCH (16:45)
[2017-07-24] MEDS: Albuterol-Ipratrop 3 mg / 0.5 (3 ml) UD INH SCH ×4 (01:27→20:08)
[2017-07-24] MEDS: Ferrous Sulfate 300 mg/5 mL Liq UD PO SCH ×3 (09:08→16:48)
[2017-07-24] MEDS: Megestrol Acetate 40 mg/ml Cup PO SCH (09:09)
[2017-07-24] MEDS: Metoprolol Succinate 25 mg XL Tab PO SCH (09:09)
[2017-07-24] MEDS: Lidocaine 5% Patch TD SCH (09:09)
[2017-07-24] MEDS: Calcium-Vit D 500 mg-200 Units Tab UD PO SCH (09:09)
--- NOTE | 2017-07-24 15:36 | CP.PCM.CON ---
History of Present Illness - History of Present Illness History of Present Illness: 86 y/o F, [facility], acute on chronic CHF on A Fib, S/p NSTEMI. On 07/19/17, Pt condition improved and was transferred to [facility] to have PT, OT. PMHx: CHF with preserved EF, rate controlled A-Fib, Osteoporosis, vertebral compression Fxs. Pt denied: Fever, chills, n/v/d, abdominal pain, urinary symptoms, cough, SOB, CP. Review of Systems - Constitutional Constitutional: Weakness - EENT Eyes: Blurred Vision, Change in Vision Nose/Mouth/Throat: Other (negative) - Cardiovascular Cardiovascular: Irregular Heart Rhythm - Respiratory Respiratory: Other (negative) - Gastrointestinal Gastrointestinal: Other (negative) - Genitourinary Genitourinary: Other (negative) - Musculoskeletal Musculoskeletal: Arthralgias - Integumentary Integumentary: Other (negative) - Neurological Neurological: Weakness - Psychiatric Psychiatric: Confusion - Endocrine Endocrine: Other (negative) - Hematologic/Lymphatic Hematologic: Other (negative) Past Patient History - Tetanus Immunizations Tetanus Immunization: Unknown - Past Medical History & Family History Past Medical History?: Yes Pertinent Family History: Unknown - Past Social History Smoking Status: Never Smoked Alcohol: None Drugs: Denies Home Situation {Lives}: With Family - CARDIAC Hx Cardiac Disorders: Yes Hx Atrial Fibrillation: Yes Hx Hypercholesterolemia: Yes Hx Hypertension: Yes - PULMONARY Hx Respiratory Disorders: Yes Hx Bronchitis: Yes Hx Pneumonia: Yes - NEUROLOGICAL Hx Neurological Disorder: No HX Cerebrovascular Accident: No - HEENT Hx HEENT Problems: No - RENAL Hx Chronic Kidney Disease: No - ENDOCRINE/METABOLIC Hx Endocrine Disorders: No Hx Hypothyroidism: No - HEMATOLOGICAL/ONCOLOGICAL Hx Blood Disorders: Yes Hx Anemia: Yes - INTEGUMENTARY Hx Dermatological Problems: No - MUSCULOSKELETAL/RHEUMATOLOGICAL Hx Musculoskeletal Disorders: Yes Hx Falls: No Hx Osteoporosis: Yes - GASTROINTESTINAL Hx Gastrointestinal Disorders: Yes Hx Constipation: Yes - GENITOURINARY/GYNECOLOGICAL Hx Genitourinary Disorders: No - PSYCHIATRIC Hx Psychophysiologic Disorder: No Hx Substance Use: No - SURGICAL HISTORY Hx Surgeries: No - ANESTHESIA Hx Anesthesia: Yes Hx Anesthesia Reactions: No Hx Malignant Hyperthermia: No Meds Allergies/Adverse Reactions: Allergies Allergy/AdvReac Type Severity Reaction Status Date / Time No Known Allergies Allergy Verified 11/06/16 12:32 - Medications Medications: Current Medications Acetaminophen (Tylenol 325mg Tab) 650 mg PO Q6 PRN PRN Reason: Pain, Mild (1-3) Last Admin: 07/23/17 06:35 Dose: 650 mg Albuterol/Ipratropium (Duoneb 3 Mg/0.5 Mg (3 Ml) Ud) 3 ml INH RQ6 [facility] Last Admin: 07/24/17 13:39 Dose: 3 ml Alendronate Sodium (Fosamax) 70 mg PO QWK [facility] Amiodarone HCl (Cordarone) 200 mg PO DAILY@1300 [facility] Last Admin: 07/24/17 13:55 Dose: 200 mg Aspirin (Aspirin Chewable) 81 mg PO DAILY [facility] Last Admin: 07/24/17 09:08 Dose: 81 mg Calcium/Vitamin D (Oyster Shell Calcium/Vitamin D 500 Mg-200 Iu) 1 tab PO DAILY [facility] Last Admin: 07/24/17 09:09 Dose: 1 tab Diltiazem HCl (Cardizem Cd) 120 mg PO QD5 [facility] Last Admin: 07/23/17 16:45 Dose: 120 mg Diphenhydramine HCl (Benadryl) 25 mg PO HS PRN PRN Reason: Rash Docusate Sodium (Colace) 100 mg PO BID [facility] Last Admin: 07/24/17 09:09 Dose: 100 mg Ferrous Sulfate (Feosol Liq) 300 mg PO TID [facility] Last Admin: 07/24/17 13:55 Dose: 300 mg Furosemide (Lasix) 20 mg PO BID [facility] Last Admin: 07/24/17 09:09 Dose: 20 mg Lactic Acid (Lac-Hydrin 12% Lotion (225 G)) 1 applic TOP Q12 [facility] Last Admin: 07/24/17 09:08 Dose: 1 unit Lidocaine (Lidoderm) 1 ea TD DAILY [facility] Last Admin: 07/24/17 09:09 Dose: 1 ea Megestrol Acetate (Megace) 400 mg PO DAILY [facility] Last Admin: 07/24/17 09:09 Dose: 400 mg Metoprolol Succinate (Toprol Xl) 25 mg PO DAILY [facility] Last Admin: 07/24/17 09:09 Dose: 25 mg Physical Exam - Constitutional Appears: No Acute Distress, Chronically Ill - Head Exam Head Exam: NORMAL INSPECTION - Eye Exam Eye Exam: PERRL - ENT Exam ENT Exam: Mucous Membranes Moist - Neck Exam Neck exam: Positive for: Normal Inspection - Respiratory Exam Respiratory Exam: Decreased Breath Sounds (l base) - Cardiovascular Exam Cardiovascular Exam: Irregular Rhythm - GI/Abdominal Exam GI & Abdominal Exam: Normal Bowel Sounds, Soft - Extremities Exam Extremities exam: Positive for: normal inspection - Neurological Exam Neurological exam: Alert, CN II-XII Intact, Oriented x3 (confused at times.) - Psychiatric Exam Psychiatric exam: Normal Mood - Skin Skin Exam: Abrasion (R distal lower extremity), Warm Results - Vital Signs Recent Vital Signs: Last Vital Signs Temp 97.2 F L 07/24/17 08:13 Pulse 77 07/24/17 13:55 Resp 20 07/24/17 08:13 BP 108/62 07/24/17 13:55 Pulse Ox 98 07/24/17 08:55 reviewed J.P. - Labs Result Diagrams: 07/20/17 05:55 07/20/17 05:55 Labs: reviewed J.P. Assessment & Plan (1) Atrial fibrillation Status: Acute Priority: Medium (2) Anemia Status: Chronic Priority: Medium (3) Non-STEMI (non-ST elevated myocardial infarction) Status: Acute Priority: Medium (4) CHF (congestive heart failure) Status: Acute Priority: Medium (5) Osteoporosis Status: Chronic Priority: Medium (6) Constipation Status: Chronic Priority: Low - Assessment and Plan (Free Text) Plan: Pt stable from multiple acute medical condition, referred to TCU for OT,PT. Agree with treatments management, I will follow Pt in [facility] when discharged from hospital. - Date & Time Date: 07/24/17 Time: 14:00
[2017-07-24] MEDS: diltiaZEM 120 mg/24 Hours CD Cap PO SCH (16:48)
[2017-07-25] MEDS: Albuterol-Ipratrop 3 mg / 0.5 (3 ml) UD INH SCH ×4 (01:12→19:03)
[2017-07-25] MEDS: Megestrol Acetate 40 mg/ml Cup PO SCH (08:26)
[2017-07-25] MEDS: Ferrous Sulfate 300 mg/5 mL Liq UD PO SCH ×3 (08:26→16:59)
[2017-07-25] MEDS: Lidocaine 5% Patch TD SCH (08:26)
[2017-07-25] MEDS: Calcium-Vit D 500 mg-200 Units Tab UD PO SCH (08:27)
[2017-07-25] MEDS: Metoprolol Succinate 25 mg XL Tab PO SCH (08:27)
--- NOTE | 2017-07-25 12:42 | CP.PCM.PN ---
Subjective - Date & Time of Evaluation Date of Evaluation: 07/25/17 Objective - Vital Signs/Intake and Output Vital Signs (last 24 hours): Temp Pulse Resp BP Pulse Ox 97.5 F L 85 20 123/71 99 07/25/17 08:51 07/25/17 08:57 07/25/17 08:51 07/25/17 08:57 07/25/17 08:57 - Medications Medications: Current Medications Acetaminophen (Tylenol 325mg Tab) 650 mg PO Q6 PRN PRN Reason: Pain, Mild (1-3) Last Admin: 07/25/17 00:30 Dose: 650 mg Albuterol/Ipratropium (Duoneb 3 Mg/0.5 Mg (3 Ml) Ud) 3 ml INH RQ6 [facility] Last Admin: 07/25/17 07:17 Dose: 3 ml Alendronate Sodium (Fosamax) 70 mg PO QWK [facility] Amiodarone HCl (Cordarone) 200 mg PO DAILY@1300 [facility] Last Admin: 07/24/17 13:55 Dose: 200 mg Aspirin (Aspirin Chewable) 81 mg PO DAILY [facility] Last Admin: 07/25/17 08:26 Dose: 81 mg Calcium/Vitamin D (Oyster Shell Calcium/Vitamin D 500 Mg-200 Iu) 1 tab PO DAILY [facility] Last Admin: 07/25/17 08:27 Dose: 1 tab Diltiazem HCl (Cardizem Cd) 120 mg PO QD5 [facility] Last Admin: 07/24/17 16:48 Dose: 120 mg Diphenhydramine HCl (Benadryl) 25 mg PO HS PRN PRN Reason: Rash Docusate Sodium (Colace) 100 mg PO BID [facility] Last Admin: 07/25/17 08:26 Dose: 100 mg Ferrous Sulfate (Feosol Liq) 300 mg PO TID [facility] Last Admin: 07/25/17 08:26 Dose: 300 mg Furosemide (Lasix) 20 mg PO BID [facility] Last Admin: 07/25/17 08:26 Dose: 20 mg Lactic Acid (Lac-Hydrin 12% Lotion (225 G)) 1 applic TOP Q12 [facility] Last Admin: 07/25/17 08:26 Dose: 1 unit Lidocaine (Lidoderm) 1 ea TD DAILY [facility] Last Admin: 07/25/17 08:26 Dose: 1 ea Megestrol Acetate (Megace) 400 mg PO DAILY [facility] Last Admin: 07/25/17 08:26 Dose: 400 mg Metoprolol Succinate (Toprol Xl) 25 mg PO DAILY [facility] Last Admin: 07/25/17 08:27 Dose: 25 mg - Labs Labs: 07/20/17 05:55 07/20/17 05:55 Assessment and Plan (1) Atrial fibrillation Status: Acute (2) Anemia Status: Chronic (3) Non-STEMI (non-ST elevated myocardial infarction) Status: Acute (4) CHF (congestive heart failure) Status: Acute (5) Osteoporosis Status: Chronic (6) Constipation Status: Chronic
--- NOTE | 2017-07-25 16:10 | CP.PCM.PN ---
Subjective - Date & Time of Evaluation Date of Evaluation: 07/25/17 Time of Evaluation: 16:08 - Subjective Subjective: Patient was seen and examined at bedside resting comfortably. Denies any overnight events Objective - Vital Signs/Intake and Output Vital Signs (last 24 hours): Temp Pulse Resp BP Pulse Ox 97.5 F L 70 20 112/60 99 07/25/17 08:51 07/25/17 12:43 07/25/17 08:51 07/25/17 12:43 07/25/17 08:57 - Medications Medications: Current Medications Acetaminophen (Tylenol 325mg Tab) 650 mg PO Q6 PRN PRN Reason: Pain, Mild (1-3) Last Admin: 07/25/17 00:30 Dose: 650 mg Albuterol/Ipratropium (Duoneb 3 Mg/0.5 Mg (3 Ml) Ud) 3 ml INH RQ6 [facility] Last Admin: 07/25/17 13:38 Dose: Not Given Alendronate Sodium (Fosamax) 70 mg PO QWK [facility] Amiodarone HCl (Cordarone) 200 mg PO DAILY@1300 [facility] Last Admin: 07/25/17 12:43 Dose: 200 mg Aspirin (Aspirin Chewable) 81 mg PO DAILY [facility] Last Admin: 07/25/17 08:26 Dose: 81 mg Calcium/Vitamin D (Oyster Shell Calcium/Vitamin D 500 Mg-200 Iu) 1 tab PO DAILY [facility] Last Admin: 07/25/17 08:27 Dose: 1 tab Diltiazem HCl (Cardizem Cd) 120 mg PO QD5 [facility] Last Admin: 07/24/17 16:48 Dose: 120 mg Diphenhydramine HCl (Benadryl) 25 mg PO HS PRN PRN Reason: Rash Docusate Sodium (Colace) 100 mg PO BID [facility] Last Admin: 07/25/17 08:26 Dose: 100 mg Ferrous Sulfate (Feosol Liq) 300 mg PO TID [facility] Last Admin: 07/25/17 12:43 Dose: 300 mg Furosemide (Lasix) 20 mg PO BID [facility] Last Admin: 07/25/17 08:26 Dose: 20 mg Lactic Acid (Lac-Hydrin 12% Lotion (225 G)) 1 applic TOP Q12 [facility] Last Admin: 07/25/17 08:26 Dose: 1 unit Lidocaine (Lidoderm) 1 ea TD DAILY [facility] Last Admin: 07/25/17 08:26 Dose: 1 ea Megestrol Acetate (Megace) 400 mg PO DAILY [facility] Last Admin: 07/25/17 08:26 Dose: 400 mg Metoprolol Succinate (Toprol Xl) 25 mg PO DAILY [facility] Last Admin: 07/25/17 08:27 Dose: 25 mg - Labs Labs: 07/20/17 05:55 07/20/17 05:55 - Constitutional Appears: No Acute Distress, Chronically Ill - Head Exam Head Exam: NORMAL INSPECTION - ENT Exam ENT Exam: Mucous Membranes Moist - Respiratory Exam Respiratory Exam: Decreased Breath Sounds - Cardiovascular Exam Cardiovascular Exam: Irregular Rhythm, +S1, +S2 - GI/Abdominal Exam GI & Abdominal Exam: Soft. absent: Tenderness - Extremities Exam Extremities Exam: absent: Calf Tenderness - Neurological Exam Neurological Exam: Alert, Awake, CN II-XII Intact Assessment and Plan - Assessment and Plan (Free Text) Assessment: 86 yr old F admitted to TCU for PT/OT. Patient is medically stable. Patient has small frame and BMI of 15.3 secondary to chronic poor appetite. -Cardiology consult appreciated: will follow recommendations -wound care -heart healthy diet -Megace 400mg PO daily -lasix 20mg PO BID -Diltiazem CD 120mg PO QD5 - Amiodarone 200 mg daily - Metoprolol 25 -PT/OT -DVT prophylaxis:Heparin 5000 Q12
[2017-07-25] MEDS: diltiaZEM 120 mg/24 Hours CD Cap PO SCH (16:59)
[2017-07-26] MEDS: Albuterol-Ipratrop 3 mg / 0.5 (3 ml) UD INH SCH ×3 (02:13→13:39)
[2017-07-26] MEDS: Calcium-Vit D 500 mg-200 Units Tab UD PO SCH (09:35)
[2017-07-26] MEDS: Megestrol Acetate 40 mg/ml Cup PO SCH (09:36)
[2017-07-26] MEDS: Lidocaine 5% Patch TD SCH (09:36)
[2017-07-26] MEDS: Ferrous Sulfate 300 mg/5 mL Liq UD PO SCH ×2 (09:36→13:19)
[2017-07-26] MEDS: Metoprolol Succinate 25 mg XL Tab PO SCH (09:37)
[2017-07-26 10:58] LABS: BASO % 0.6 % (0.0-2.0); EOS # 0.1 K/uL (0.0-0.7); EOS % 1.5 % (0.0-4.0); HEMOGLOBIN 11.2 g/dL (12.0-16.0); LYMPH # 1.2 K/uL (1.0-4.3); LYMPH % 25.6 % (20.0-40.0); MEAN CELL VOLUME 95.2 fl (81.0-99.0); MEAN CORPUSCULAR HEMOGLOBIN 30.7 pg (27.0-31.0); MEAN CORPUSCULAR HGB CONC 32.3 g/dL (33.0-37.0); MEAN PLATELET VOLUME 7.7 fl (7.2-11.7); MONO # 0.4 K/uL (0.0-0.8); MONO % 8.7 % (0.0-10.0); NEUT # 2.9 K/uL (1.8-7.0); NEUT % 63.6 % (50.0-75.0); RBC 3.64 Mil/uL (3.80-5.20); RED CELL DISTRIBUTION WIDTH 21.2 % (11.5-14.5); WHITE BLOOD COUNT 4.5 K/uL (4.8-10.8)
[2017-07-26 11:14] LABS: ALB/GLOB RATIO 0.6 (1.0-2.1); ALBUMIN 3.7 g/dL (3.5-5.0); ALT/SGPT 31 U/L (9-52); AST/SGOT 59 U/L (14-36); BLOOD UREA NITROGEN 48 mg/dl (7-17); CALCIUM 9.9 mg/dL (8.4-10.2); GFR AFRICAN-AMERICAN > 60; GFR NON-AFRICAN AMERICAN 59
--- NOTE | 2017-07-26 13:18 | CP.PCM.PN ---
Subjective - Date & Time of Evaluation Date of Evaluation: 07/26/17 Time of Evaluation: 09:25 - Subjective Subjective: Pt awake, no A/D, at times confused. Objective - Vital Signs/Intake and Output Vital Signs (last 24 hours): Temp Pulse Resp BP Pulse Ox 96.8 F L 66 20 110/63 95 07/26/17 08:08 07/26/17 09:37 07/26/17 08:08 07/26/17 09:37 07/26/17 08:08 - Medications Medications: Current Medications Acetaminophen (Tylenol 325mg Tab) 650 mg PO Q6 PRN PRN Reason: Pain, Mild (1-3) Last Admin: 07/25/17 00:30 Dose: 650 mg Albuterol/Ipratropium (Duoneb 3 Mg/0.5 Mg (3 Ml) Ud) 3 ml INH RQ6 [facility] Last Admin: 07/26/17 07:36 Dose: 3 ml Alendronate Sodium (Fosamax) 70 mg PO QWK [facility] Amiodarone HCl (Cordarone) 200 mg PO DAILY@1300 [facility] Last Admin: 07/25/17 12:43 Dose: 200 mg Aspirin (Aspirin Chewable) 81 mg PO DAILY [facility] Last Admin: 07/26/17 09:37 Dose: 81 mg Calcium/Vitamin D (Oyster Shell Calcium/Vitamin D 500 Mg-200 Iu) 1 tab PO DAILY [facility] Last Admin: 07/26/17 09:35 Dose: 1 tab Diltiazem HCl (Cardizem Cd) 120 mg PO QD5 [facility] Last Admin: 07/25/17 16:59 Dose: 120 mg Diphenhydramine HCl (Benadryl) 25 mg PO HS PRN PRN Reason: Rash Docusate Sodium (Colace) 100 mg PO BID [facility] Last Admin: 07/26/17 09:35 Dose: 100 mg Ferrous Sulfate (Feosol Liq) 300 mg PO TID [facility] Last Admin: 07/26/17 09:36 Dose: 300 mg Furosemide (Lasix) 20 mg PO BID [facility] Last Admin: 07/26/17 09:35 Dose: 20 mg Heparin Sodium (Porcine) (Heparin) 5,000 units SC Q12 [facility] PRN Reason: Protocol Last Admin: 07/26/17 09:35 Dose: 5,000 units Lactic Acid (Lac-Hydrin 12% Lotion (225 G)) 1 applic TOP Q12 [facility] Last Admin: 07/26/17 09:34 Dose: 11 unit Lidocaine (Lidoderm) 1 ea TD DAILY [facility] Last Admin: 07/26/17 09:36 Dose: 1 ea Megestrol Acetate (Megace) 400 mg PO DAILY [facility] Last Admin: 07/26/17 09:36 Dose: 400 mg Metoprolol Succinate (Toprol Xl) 25 mg PO DAILY [facility] Last Admin: 07/26/17 09:37 Dose: 25 mg - Labs Labs: 07/26/17 09:57 07/26/17 09:57 - Constitutional Appears: No Acute Distress, Chronically Ill - Head Exam Head Exam: NORMAL INSPECTION - Eye Exam Eye Exam: PERRL - ENT Exam ENT Exam: Normal Exam - Neck Exam Neck Exam: Normal Inspection - Respiratory Exam Respiratory Exam: Decreased Breath Sounds (L base) - Cardiovascular Exam Cardiovascular Exam: REGULAR RHYTHM - GI/Abdominal Exam GI & Abdominal Exam: Soft, Normal Bowel Sounds - Extremities Exam Extremities Exam: Normal Inspection - Neurological Exam Neurological Exam: Alert, CN II-XII Intact, Oriented x3 (At times confused.) - Psychiatric Exam Psychiatric exam: Normal Mood - Skin Skin Exam: Abrasion (R distal LE), Warm Assessment and Plan (1) Atrial fibrillation Status: Acute (2) Anemia Status: Chronic (3) Non-STEMI (non-ST elevated myocardial infarction) Status: Acute (4) CHF (congestive heart failure) Status: Acute (5) Osteoporosis Status: Chronic (6) Constipation Status: Chronic - Assessment and Plan (Free Text) Plan: Pt improved and stable to be discharged to [facility], I will f/u Pt in this facility.
--- NOTE | 2017-07-26 14:40 | CP.PCM.DIS ---
Provider - Provider Date of Admission: 07/18/17 20:49 Attending physician: Asim Avelar MD Time Spent in preparation of Discharge (in minutes): 30 Diagnosis - Discharge Diagnosis (1) CHF (congestive heart failure) Status: Acute Priority: Medium (2) Atrial fibrillation Status: Acute Priority: Medium Hospital Course - Lab Results Lab Results: Most Recent Lab Values WBC 4.5 K/uL (4.8-10.8) L 07/26/17 09:57 RBC 3.64 Mil/uL (3.80-5.20) L 07/26/17 09:57 Hgb 11.2 g/dL (12.0-16.0) L 07/26/17 09:57 Hct 34.6 % (34.0-47.0) 07/26/17 09:57 MCV 95.2 fl (81.0-99.0) D 07/26/17 09:57 MCH 30.7 pg (27.0-31.0) 07/26/17 09:57 MCHC 32.3 g/dL (33.0-37.0) L 07/26/17 09:57 RDW 21.2 % (11.5-14.5) H 07/26/17 09:57 Plt Count 203 K/uL (130-400) 07/26/17 09:57 MPV 7.7 fl (7.2-11.7) 07/26/17 09:57 Neut % (Auto) 63.6 % (50.0-75.0) 07/26/17 09:57 Lymph % (Auto) 25.6 % (20.0-40.0) 07/26/17 09:57 [place] % (Auto) 8.7 % (0.0-10.0) 07/26/17 09:57 Eos % (Auto) 1.5 % (0.0-4.0) 07/26/17 09:57 Baso % (Auto) 0.6 % (0.0-2.0) 07/26/17 09:57 Neut # (Auto) 2.9 K/uL (1.8-7.0) 07/26/17 09:57 Lymph # (Auto) 1.2 K/uL (1.0-4.3) 07/26/17 09:57 [place] # (Auto) 0.4 K/uL (0.0-0.8) 07/26/17 09:57 Eos # (Auto) 0.1 K/uL (0.0-0.7) 07/26/17 09:57 Baso # (Auto) 0.0 K/uL (0.0-0.2) 07/26/17 09:57 Sodium 145 mmol/l (132-148) 07/26/17 09:57 Potassium 4.7 MMOL/L (3.6-5.0) 07/26/17 09:57 Chloride 101 mmol/L (98-107) 07/26/17 09:57 Carbon Dioxide 31 mmol/L (22-30) H 07/26/17 09:57 Anion Gap 18 (10-20) 07/26/17 09:57 BUN 48 mg/dl (7-17) H 07/26/17 09:57 Creatinine 0.9 mg/dl (0.7-1.2) 07/26/17 09:57 Est GFR ( Amer) > 60 07/26/17 09:57 Est GFR (Non-Af Amer) 59 07/26/17 09:57 Random Glucose 137 mg/dL (65-105) H 07/26/17 09:57 Calcium 9.9 mg/dL (8.4-10.2) 07/26/17 09:57 Total Bilirubin 0.5 mg/dl (0.2-1.3) 07/26/17 09:57 AST 59 U/L (14-36) H D 07/26/17 09:57 ALT 31 U/L (9-52) 07/26/17 09:57 Alkaline Phosphatase 73 U/L (38-126) 07/26/17 09:57 Total Protein 9.8 G/DL (6.3-8.2) H 07/26/17 09:57 Albumin 3.7 g/dL (3.5-5.0) 07/26/17 09:57 Globulin 6.1 gm/dL (2.2-3.9) H 07/26/17 09:57 Albumin/Globulin Ratio 0.6 (1.0-2.1) L 07/26/17 09:57 - Hospital Course Hospital Course: 86 yr old F admitted to TCU for PT/OT s/p discharge from med/surg for acute on chronic CHF with preserved EF, now with rate controlled A-fib, s/p NSTEMI, anemia of chronic disease. Patients' acute CHF resolved and symptoms improved s/ p treatment with lasix, optimization of medications and supplemental oxygen. -Megace 400mg PO daily -lasix 20mg PO BID -Diltiazem CD 120mg PO QD5 - Amiodarone 200 mg daily - Metoprolol 25 - Patient is doing well and is stable for transfer to [facility]. Discharge Exam - Head Exam Head Exam: NORMAL INSPECTION - Eye Exam Eye Exam: Normal appearance - Respiratory Exam Respiratory Exam: Decreased Breath Sounds, NORMAL BREATHING PATTERN. absent: Wheezes, Respiratory Distress - Cardiovascular Exam Cardiovascular Exam: +S1, +S2 - GI/Abdominal Exam GI & Abdominal Exam: Normal Bowel Sounds, Soft. absent: Tenderness - Neurological Exam Neurological exam: Alert, CN II-XII Intact Discharge Plan - Follow Up Plan Condition: GOOD Disposition: [facility] Instructions: Heart Failure (DC), Heart Failure (GEN), Pacemaker (DC), Pacemaker (GEN), Pulmonary Edema (DC), Pulmonary Edema (GEN), Ascites (DC), Ascites (GEN) Additional Instructions: Follow up with PMD in 2-3 days after discharge
[2017-07-26 16:41] VITALS: BP 113/67; PULSE 81; TEMP 97.3; O2SAT 98
== END 2017-07-26 16:15 | DRG 281 ==
LOC: H.TCU 20:49
PROVIDERS: ADMIT Family Medicine; ATTEND Family Medicine
PROC: F07Z5FZ Bed Mobility Treatment using Assistive, Adaptive, Supportive or Protective Equipment (ICD-10-PCS; principal; 2017-07-18)
PROC: F07Z8FZ Transfer Training Treatment using Assistive, Adaptive, Supportive or Protective Equipment (ICD-10-PCS; 2017-07-18)
PROC: F07Z9FZ Gait Training/Functional Ambulation Treatment using Assistive, Adaptive, Supportive or Protective Equipment (ICD-10-PCS; 2017-07-18)
PROC: F08Z2FZ Grooming/Personal Hygiene Treatment using Assistive, Adaptive, Supportive or Protective Equipment (ICD-10-PCS; 2017-07-18)
PROC: F08Z1FZ Dressing Techniques Treatment using Assistive, Adaptive, Supportive or Protective Equipment (ICD-10-PCS; 2017-07-18)
PROC: F07L6FZ Therapeutic Exercise Treatment of Musculoskeletal System - Lower Back / Lower Extremity using Assistive, Adaptive, Supportive or Protective Equipment (ICD-10-PCS; 2017-07-18)
PROC: 5A0955Z Assistance with Respiratory Ventilation, Greater than 96 Consecutive Hours (ICD-10-PCS; 2017-07-18)
DX: I11.0 Hypertensive heart disease with heart failure (principal); I21.4 Non-ST elevation (NSTEMI) myocardial infarction; Z68.1 Body mass index [BMI] 19.9 or less, adult; I48.91 Unspecified atrial fibrillation; D63.8 Anemia in other chronic diseases classified elsewhere; I50.9 Heart failure, unspecified; M81.0 Age-related osteoporosis without current pathological fracture; R63.0 Anorexia; K59.00 Constipation, unspecified

== ENCOUNTER 2017-09-05 16:48 | Inpatient (IN) | payer MEDICARE, OTHER ==
[2017-09-05 16:48] VITALS: PULSE 121; BMI 15.2
[2017-09-05 18:25] LABS: BASO % 0.2 % (0.0-2.0); EOS % 0.3 % (0.0-4.0); HEMOGLOBIN 8.5 g/dL (12.0-16.0); LYMPH # 0.7 K/uL (1.0-4.3); MEAN CORPUSCULAR HEMOGLOBIN 33.3 pg (27.0-31.0); MEAN PLATELET VOLUME 6.5 fl (7.2-11.7); MONO # 0.3 K/uL (0.0-0.8); MONO % 4.9 % (0.0-10.0); NEUT # 5.1 K/uL (1.8-7.0); NEUT % 82.6 % (50.0-75.0); NRBC % 0.2 % (0.0-0.0); RBC 2.54 Mil/uL (3.80-5.20); RED CELL DISTRIBUTION WIDTH 23.5 % (11.5-14.5); WHITE BLOOD COUNT 6.2 K/uL (4.8-10.8)
[2017-09-05 19:04] LABS: BLOOD UREA NITROGEN 19 mg/dl (7-17); CALCIUM 9.2 mg/dL (8.4-10.2); GFR AFRICAN-AMERICAN > 60; GFR NON-AFRICAN AMERICAN > 60
--- NOTE | 2017-09-05 21:18 | CT ---
EXAM: CT Chest Without Intravenous Contrast EXAM DATE/TIME: 09/05/2017 7:09 PM CLINICAL HISTORY: 87 years old, female; Injury or trauma; Fall; Initial encounter; Blunt trauma (contusions or hematomas); Additional info: Fall from bed abnormal cxr TECHNIQUE: Axial computed tomography images of the chest without intravenous contrast. All CT scans at this facility use one or more dose reduction techniques, viz.: automated exposure control; ma/kV adjustment per patient size (including targeted exams where dose is matched to indication; i.e. head); or iterative reconstruction technique. Coronal and sagittal reformatted images were created and reviewed. COMPARISON: CT - ANGIO CHEST PE PROTOCOL 2017-07-01 19:03 FINDINGS: Lungs and pleural spaces: Trachea and main bronchi are patent. There is no pneumothorax.There is dependent atelectasis at the lung bases. There is airspace disease at the lung bases right greater than left. There are small effusions bilaterally. There is pleural thickening along the right chest wall adjacent to the subacute fifth rib fracture. Heart and vasculature: The heart is enlarged.There are coronary artery calcifications.Aorta and main pulmonary artery are normal in caliber. Aorta is ectatic. There vascular calcifications Thyroid: Thyroid is not optimally demonstrated. Bones/joints: Bony structures are diffusely osteopenic. There are healing fractures of the right anterior fourth and fifth ribs. There are acute fractures of the right sixth and seventh ribs.. Additional nondisplaced acute right rib fractures may be present. There are subacute fractures of the left first and second ribs. There is a subacute fracture of the left seventh rib. No definite acute nondisplaced rib fractures are seen on the left. There is marked exaggeration of thoracic kyphosis. There is mild compression deformity T2, T3 and T4. There is severe wedge compression deformities T5-T9. There is only mild deformity T10 and 11. There is marked compression deformity T12. There are less severe compression deformity L1-L4. There is associated disc deformity. Motion limits evaluation of the sternum. Soft tissues: There is focal edema in probable hematoma in the left lower abdominal wall approximately at the level of the iliac crest. Mediastinum: The esophagus is difficult to evaluate. There is shotty mediastinal nodes. IMPRESSION: Osteopenia; marked exaggeration of thoracic kyphosis with multiple thoracic and lumbar compression fractures; multiple bilateral subacute rib fractures with possible acute fractures of the right sixth and seventh ribs; small bilateral pleural effusions with basilar airspace disease; cardiomegaly and atherosclerotic disease; limited evaluation the upper abdomen, possible left lower abdominal wall hematoma
--- NOTE | 2017-09-05 21:35 | ED PDOC ---
HPI: Trauma/Fall - HPI Time Seen by Provider: 09/05/17 17:02 Chief Complaint (Nursing): Upper Extremity Problem/Injury Chief Complaint (Provider): fall from bed History Per: Delivery Assistant (Indemand) History/Exam Limitations: clinical condition, other (elderly, history good for clinical appearance but patient repeats herself frequently) Onset/Duration Of Symptoms: Sudden Onset Injury Occurred (Timing): Just Before Arrival Anterior Full Body: 1 - skin tears Severity: Mild Additional Complaint(s): 87yo female arrives via EMS reported fall from bed after attempting to get to toilet, found immediately by family. Patient noted to have skin tears to R humerus but she denies headache, weakness, headache, hip/abdominal/pelvis pain or LOC. Per EMS social situation at home questionable- family members also disabled, unclear how attentive they are to patient. Prior charts briefly reviewed revealing TCU stay earlier this year. PMD: patient has Rx bottles w Dr Luque Past Medical History Reviewed: Historical Data, Nursing Documentation, Vital Signs Vital Signs: Last Vital Signs Temp 97.7 F 09/06/17 12:35 Pulse 88 09/06/17 12:35 Resp 18 09/06/17 12:35 BP 132/78 09/06/17 12:35 Pulse Ox 97 09/06/17 12:35 - Medical History PMH: Anemia, Atrial Fibrillation, Bronchitis, CHF, Fractures (vertebral compression; rib ), HTN, Hypercholesterolemia, Osteoporosis, Pneumonia Denies: Arthritis, COPD, HIV, Hypothyroidism, Chronic Kidney Disease, Rheumatoid Arthritis Other PMH: home O2 - Surgical History Other surgeries: unknown - Family History Family History: States: Unknown Family Hx - Living Arrangements Living Arrangements: With Family - Social History Current smoker - smoking cessation education provided: No - Immunization History Hx Tetanus Toxoid Vaccination: Yes (4 years ago while she was in [place]) - Home Medications Home Medications: Ambulatory Orders Medication Instructions Recorded Aspirin [Aspirin Chewable] 81 mg PO DAILY 07/01/17 Calcium Carbonate/Vitamin D3 1 tab PO DAILY 07/01/17 [Os-Rajeev 500-Vit D3 200 Caplet] Acetaminophen [Tylenol 325mg tab] 650 mg PO Q6 PRN tab 07/17/17 Albuterol/Ipratropium [Duoneb 3 3 ml INH RQ6 neb 07/17/17 mg/0.5 mg (3 ml) UD] Amiodarone [Cordarone] 200 mg PO DAILY@1300 tab 07/17/17 Docusate [Colace] 100 mg PO BID cap 07/17/17 Ferrous Sulfate [Feosol Liq] 300 mg PO TID udc 07/17/17 Furosemide [Lasix] 20 mg PO BID tab 07/17/17 Lidocaine 5% [Lidoderm] 1 ea TD DAILY patch 07/17/17 Megestrol Acetate [Megace] 400 mg PO DAILY cup 07/17/17 Metoprolol Succinate [Toprol XL] 25 mg PO DAILY tab 07/26/17 diltiaZEM CD [Cardizem CD] 120 mg PO QD5 cap 07/26/17 - Allergies Allergies/Adverse Reactions: Allergies Allergy/AdvReac Type Severity Reaction Status Date / Time No Known Allergies Allergy Verified 11/06/16 12:32 Review of Systems ROS Statement: Except As Marked, All Systems Reviewed And Found Negative Constitutional: Negative for: Fever, Chills Eyes: Negative for: Redness ENT: Negative for: Throat Pain Cardiovascular: Positive for: Other (chest wall pain). Negative for: Chest Pain , Palpitations Respiratory: Negative for: Cough, Shortness of Breath Gastrointestinal: Negative for: Nausea, Vomiting, Abdominal Pain Genitourinary Female: Negative for: Dysuria Musculoskeletal: Positive for: Neck Pain, Arm Pain, Back Pain Skin: Negative for: Rash, Lesions Neurological: Positive for: Other (poor gait). Negative for: Weakness, Numbness , Confusion, Seizures, Altered Mental Status, Headache, Dizziness Psych: Negative for: Depression Physical Exam - Reviewed Nursing Documentation Reviewed: Yes Vital Signs Reviewed: Yes - Physical Exam Appears: Positive for: Non-toxic (elderly, frail south su[place]ese speaking no dysarthria) Head Exam: Positive for: ATRAUMATIC, NORMAL INSPECTION, NORMOCEPHALIC Skin: Positive for: Normal Color, Warm, DRY Eye Exam: Positive for: EOMI, Normal appearance, PERRL ENT: Positive for: Normal ENT Inspection Neck: Positive for: Painless ROM, Decreased ROM, See Diagram (lordotic) Cardiovascular/Chest: Positive for: Regular Rate, Rhythm, Other (+mild L chest wall tenderness no ecchymosis). Negative for: Chest Non Tender Respiratory: Positive for: Decreased Breath Sounds Gastrointestinal/Abdominal: Positive for: Soft, Other (no ecchymosis, thin abdomen). Negative for: Tenderness, Distended, Guarding, Rebound Back: Positive for: Normal Inspection, Vertebral Tenderness (midline) Extremity: Positive for: Normal ROM, Other (R posterior humerus skin tears x2 3cm each). Negative for: Tenderness, Deformity, Swelling Neurologic/Psych: Positive for: Alert, Oriented, Gait (unable to assess). Negative for: Motor/Sensory Deficits, Aphasia, Facial Droop - Laboratory Results Result Diagrams: 09/06/17 05:50 09/06/17 05:50 - ECG O2 Sat by Pulse Oximetry: 90 Pulse Ox Interpretation: Abnormal (improves on O2 2L) - Radiology X-Ray: Interpreted by Nm X-Ray Interpretation: Other (osteopenia no fractures) - Critical Care Total Time (In Min): 45 Comments: patient required immediate and recurrent bedside attention for fall and multisystem trauma Medical Decision Making Medical Decision Making: workup for fall type injury initiated wound care provided to L skin arm skin tears, bacitracin and xeroform, sterile dressing xrays R arm, chest, pelvis ordered No deformity or loss of ROM basics labs ordered Labs reveal a new drop in hgb as compared to earlier this year 11.2 --> 8.5 now Guiac neg (minimal stool in vault). CXR shows changes R base compared to prior, thus CT chest obtained CT chest: FINDINGS: Lungs and pleural spaces: Trachea and main bronchi are patent. There is no pneumothorax.There is dependent atelectasis at the lung bases. There is airspace disease at the lung bases right greater than left. There are small effusions bilaterally. There is pleural thickening along the right chest wall adjacent to the subacute fifth rib fracture. Heart and vasculature: The heart is enlarged.There are coronary artery calcifications.Aorta and main pulmonary artery are normal in caliber. Aorta is ectatic. There vascular calcifications Thyroid: Thyroid is not optimally demonstrated. Bones/joints: Bony structures are diffusely osteopenic. There are healing fractures of the right anterior fourth and fifth ribs. There are acute fractures of the right sixth and seventh ribs.. Additional nondisplaced acute right rib fractures may be present. There are subacute fractures of the left first and second ribs. There is a subacute fracture of the left seventh rib. No definite acute nondisplaced rib fractures are seen on the left. There is marked exaggeration of thoracic kyphosis. There is mild compression deformity T2, T3 and T4. There is severe wedge compression deformities T5-T9. There is only mild deformity T10 and 11. There is marked compression deformity T12. There are less severe compression deformity L1-L4. There is associated disc deformity. Motion limits evaluation of the sternum. Soft tissues: There is focal edema in probable hematoma in the left lower abdominal wall approximately at the level of the iliac crest. Mediastinum: The esophagus is difficult to evaluate. There is shotty mediastinal nodes. IMPRESSION: Osteopenia; marked exaggeration of thoracic kyphosis with multiple thoracic and lumbar compression fractures; multiple bilateral subacute rib fractures with possible acute fractures of the right sixth and seventh ribs; small bilateral pleural effusions with basilar airspace disease; cardiomegaly and atherosclerotic disease; limited evaluation the upper abdomen, possible left lower abdominal wall hematoma Thank you for allowing us to participate in the care of your patient. Dictated and Authenticated by: Patricia Robison MD 09/05/2017 9:17 PM Eastern Time ([place] & April) Patient denies abdominal or back pain. CT abd/pelv and brain/CSpine ordered given CT chest findings and questionable mechanism injury Son arrived at bedside, no further history to add confirms Dr Luque "takes care of her lungs" vitals remain stable EXAM: CT Head Without Intravenous Contrast EXAM DATE/TIME: 09/05/2017 9:33 PM CLINICAL HISTORY: 87 years old, female; Injury or trauma; Fall; Initial encounter; Concussion / head injury; Consciousness not specified; Additional info: R/O ich TECHNIQUE: Axial computed tomography images of the head/brain without intravenous contrast. All CT scans at this facility use one or more dose reduction techniques, viz.: automated exposure control; ma/kV adjustment per patient size (including targeted exams where dose is matched to indication; i.e. head); or iterative reconstruction technique. Coronal and sagittal reformatted images were created and reviewed. COMPARISON: CT - HEAD W/O CONTRAST 2014-08-11 15:00 FINDINGS: Artifacts: There is streak artifact which degrades image quality. Brain: There is mild prominence of sulci gyri and ventricles. There is no midline shift. There is decreased attenuation in periventricular white matter. There are no focal masses. There are no focal hemorrhages. Avina-white differentiation is visualized. Ventricles: See above. Bones: Cranial vault is intact. Soft tissues: unremarkable Sinuses: There is no acute sinusitis. Ears and mastoids: Middle ears and mastoids are unremarkable. Orbits: There are no acute orbital abnormalities. IMPRESSION: Atrophy and small vessel disease, no bleed Thank you for allowing us to participate in the care of your patient. FINDINGS: Limitations: Evaluation is limited by patient body habitus. Vertebrae: There is marked exaggeration of the cervical lordosis. There is no prevertebral soft tissue swelling. Bony structures are diffusely osteopenic. There are no fractures. There is posterior disc space narrowing at all levels. There is minimal anterolisthesis C6 on C7, degenerative. Facet joints align anatomically. There is mild narrowing of facet joints. Spinous processes align in the expected fashion. Discs/spinal canal/neural foramina: See above. Soft tissues: See above. Thyroid: Thyroid is not optimally demonstrated. Lung apices: Lung apices are not optimally evaluated. IMPRESSION: Limited by patient body habitus, osteopenia and degenerative change , no fracture Thank you for allowing us to participate in the care of your patient. Dictated and Authenticated by: Patricia Robison MD 09/05/2017 11:51 PM Eastern Time ([place] & April) TECHNIQUE: Axial computed tomography images of the abdomen and pelvis with intravenous contrast. All CT scans at this facility use one or more dose reduction techniques, viz.: automated exposure control; ma/kV adjustment per patient size (including targeted exams where dose is matched to indication; i.e. head); or iterative reconstruction technique. Coronal and sagittal reformatted images were created and reviewed. CONTRAST: 70 mL of [id number] administered intravenously. COMPARISON: CT - ABD PELVIS W/O PO OR IV CONT 2016-05-01 01:49 FINDINGS: Lower thorax: The heart is enlarged. Distal thoracic aorta is ectatic. There is small bilateral pleural effusions. There is bibasilar airspace disease. ABDOMEN: Liver: unremarkable Gallbladder and bile ducts: unremarkable Pancreas: Pancreas is mildly atrophic. Spleen: unremarkable Adrenals: unremarkable Kidneys and ureters: unremarkable Stomach and bowel: Stomach is almost empty. Rotation is normal. Small bowel is mildly distended with fluid and air. Ileocecal region is unremarkable. Appendix is not visualized.Colon is incompletely distended which limits evaluation. Appendix: See stomach and bowel PELVIS: Bladder: Bladder is almost completely empty. Reproductive: Uterus and adnexal structures are unremarkable. ABDOMEN and PELVIS: Intraperitoneal space: There is a left lateral rectus hematoma.There is no significant fluid.There is no free air. Bones/joints: There are subacute rib fractures. There is mild compression deformity T11. There is wedge compression for many T12 and L1. There are less severe compression deformities L2-L4. There is only minimal inferior endplate deformity L5. Bony structures are diffusely osteopenic. There is degenerative facet disease. There may be a lytic lesion in the left ilium. Motion limits evaluation of the sternum Soft tissues: unremarkable Vasculature: There are pelvic varices left greater than right.There are vascular calcifications. Aorta is ectatic. Lymph nodes: There is shotty adenopathy. IMPRESSION: Left lateral rectus hematoma, no acute intra-abdominal injury; subacute rib fractures; multiple thoracic and lumbar compression fractures; possible lytic lesion in the left ilium Additional nonemergent findings as described above. Thank you for allowing us to participate in the care of your patient. Dictated and Authenticated by: Patricia Robison MD 09/06/2017 12:04 AM Eastern Time ([place] & April) Given imaging findings and labs, admit to Dr Luque repeat CBC ordered coags pending T/S ordered vitals remain stable, compliance technician [id number] used to explain findings to family and patient. she remains without abd pain. hematoma possibly a result from prior rehab stay w heparin injections. Disposition - Clinical Impression Clinical Impression: Fall, Rib fracture, Anemia, Abdominal wall hematoma, Spinal compression fracture, Skin tear of right upper arm without complication - Patient ED Disposition Is Patient to be Admitted: Transfer of Care Counseled Patient/Family Regarding: Studies Performed - Disposition Disposition: Transfer of Care Disposition Time: 21:00 Condition: FAIR Patient Signed Over To: Pio Hernandez Handoff Comments: pending CT abd pelv/ CSpine - Pt Status Changed To: Hospital Disposition Of: Inpatient - Admit Certification Admit to Inpatient:: After my assessment, the patient will require hospitalization for at least two midnights. This is because of the severity of symptoms shown, intensity of services needed, and/or the medical risk in this patient being treated as an outpatient. - POA Present On Arrival: Falls Or Trauma
[2017-09-05] MEDS ORDERED: Iodixanol 320 MG/ML 100 ML BOTTLE IV ONE (22:06)
--- NOTE | 2017-09-05 23:28 | CT ---
EXAM: CT Head Without Intravenous Contrast EXAM DATE/TIME: 09/05/2017 9:33 PM CLINICAL HISTORY: 87 years old, female; Injury or trauma; Fall; Initial encounter; Concussion / head injury; Consciousness not specified; Additional info: R/O ich TECHNIQUE: Axial computed tomography images of the head/brain without intravenous contrast. All CT scans at this facility use one or more dose reduction techniques, viz.: automated exposure control; ma/kV adjustment per patient size (including targeted exams where dose is matched to indication; i.e. head); or iterative reconstruction technique. Coronal and sagittal reformatted images were created and reviewed. COMPARISON: CT - HEAD W/O CONTRAST 2014-08-11 15:00 FINDINGS: Artifacts: There is streak artifact which degrades image quality. Brain: There is mild prominence of sulci gyri and ventricles. There is no midline shift. There is decreased attenuation in periventricular white matter. There are no focal masses. There are no focal hemorrhages. Avina-white differentiation is visualized. Ventricles: See above. Bones: Cranial vault is intact. Soft tissues: unremarkable Sinuses: There is no acute sinusitis. Ears and mastoids: Middle ears and mastoids are unremarkable. Orbits: There are no acute orbital abnormalities. IMPRESSION: Atrophy and small vessel disease, no bleed
--- NOTE | 2017-09-05 23:51 | CT ---
EXAM: CT Cervical Spine Without Intravenous Contrast EXAM DATE/TIME: 09/05/2017 9:33 PM CLINICAL HISTORY: 87 years old, female; Injury or trauma; Fall; Initial encounter; Concussion /head injury; Additional info: Trauma R/O FX TECHNIQUE: Axial computed tomography images of the cervical spine without intravenous contrast. All CT scans at this facility use one or more dose reduction techniques, viz.: automated exposure control; ma/kV adjustment per patient size (including targeted exams where dose is matched to indication; i.e. head); or iterative reconstruction technique. Coronal and sagittal reformatted images were created and reviewed. COMPARISON: There are no prior studies for comparison. FINDINGS: Limitations: Evaluation is limited by patient body habitus. Vertebrae: There is marked exaggeration of the cervical lordosis. There is no prevertebral soft tissue swelling. Bony structures are diffusely osteopenic. There are no fractures. There is posterior disc space narrowing at all levels. There is minimal anterolisthesis C6 on C7, degenerative. Facet joints align anatomically. There is mild narrowing of facet joints. Spinous processes align in the expected fashion. Discs/spinal canal/neural foramina: See above. Soft tissues: See above. Thyroid: Thyroid is not optimally demonstrated. Lung apices: Lung apices are not optimally evaluated. IMPRESSION: Limited by patient body habitus, osteopenia and degenerative change, no fracture
--- NOTE | 2017-09-06 00:04 | CT ---
EXAM: CT Abdomen and Pelvis With Intravenous Contrast EXAM DATE/TIME: 09/05/2017 9:28 PM CLINICAL HISTORY: 87 years old, female; Injury or trauma; Fall; Initial encounter; Blunt; Abdominal wall; Additional info: Possible abd wall hematoma on CT chest TECHNIQUE: Axial computed tomography images of the abdomen and pelvis with intravenous contrast. All CT scans at this facility use one or more dose reduction techniques, viz.: automated exposure control; ma/kV adjustment per patient size (including targeted exams where dose is matched to indication; i.e. head); or iterative reconstruction technique. Coronal and sagittal reformatted images were created and reviewed. CONTRAST: 70 mL of [id number] administered intravenously. COMPARISON: CT - ABD PELVIS W/O PO OR IV CONT 2016-05-01 01:49 FINDINGS: Lower thorax: The heart is enlarged. Distal thoracic aorta is ectatic. There is small bilateral pleural effusions. There is bibasilar airspace disease. ABDOMEN: Liver: unremarkable Gallbladder and bile ducts: unremarkable Pancreas: Pancreas is mildly atrophic. Spleen: unremarkable Adrenals: unremarkable Kidneys and ureters: unremarkable Stomach and bowel: Stomach is almost empty. Rotation is normal. Small bowel is mildly distended with fluid and air. Ileocecal region is unremarkable. Appendix is not visualized.Colon is incompletely distended which limits evaluation. Appendix: See stomach and bowel PELVIS: Bladder: Bladder is almost completely empty. Reproductive: Uterus and adnexal structures are unremarkable. ABDOMEN and PELVIS: Intraperitoneal space: There is a left lateral rectus hematoma.There is no significant fluid.There is no free air. Bones/joints: There are subacute rib fractures. There is mild compression deformity T11. There is wedge compression for many T12 and L1. There are less severe compression deformities L2-L4. There is only minimal inferior endplate deformity L5. Bony structures are diffusely osteopenic. There is degenerative facet disease. There may be a lytic lesion in the left ilium. Motion limits evaluation of the sternum Soft tissues: unremarkable Vasculature: There are pelvic varices left greater than right.There are vascular calcifications. Aorta is ectatic. Lymph nodes: There is shotty adenopathy. IMPRESSION: Left lateral rectus hematoma, no acute intra-abdominal injury; subacute rib fractures; multiple thoracic and lumbar compression fractures; possible lytic lesion in the left ilium Additional nonemergent findings as described above.
[2017-09-06 01:30] LABS: INR 1.2 (0.9-1.2); PROTHROMBIN TIME 13.5 Seconds (9.8-13.1)
[2017-09-06 01:31] LABS: PARTIAL THROMBOPLASTIN TIME 29.9 Seconds (25.6-37.1)
[2017-09-06 01:41] LABS: BASO % 0.2 % (0.0-2.0); EOS % 0.1 % (0.0-4.0); HEMOGLOBIN 8.1 g/dL (12.0-16.0); LYMPH # 0.8 K/uL (1.0-4.3); LYMPH % 11.8 % (20.0-40.0); MEAN CELL VOLUME 100.5 fl (81.0-99.0); MEAN CORPUSCULAR HEMOGLOBIN 32.6 pg (27.0-31.0); MEAN CORPUSCULAR HGB CONC 32.5 g/dL (33.0-37.0); MEAN PLATELET VOLUME 6.3 fl (7.2-11.7); MONO # 0.2 K/uL (0.0-0.8); MONO % 3.5 % (0.0-10.0); NEUT # 5.5 K/uL (1.8-7.0); NEUT % 84.4 % (50.0-75.0); NRBC % 0.1 % (0.0-0.0); RBC 2.47 Mil/uL (3.80-5.20); RED CELL DISTRIBUTION WIDTH 22.7 % (11.5-14.5); WHITE BLOOD COUNT 6.5 K/uL (4.8-10.8)
[2017-09-06 01:55] LABS: ALB/GLOB RATIO 0.5 (1.0-2.1); ALBUMIN 3.3 g/dL (3.5-5.0); ALT/SGPT 12 U/L (9-52); AST/SGOT 35 U/L (14-36); BLOOD UREA NITROGEN 16 mg/dl (7-17); GFR AFRICAN-AMERICAN > 60; GFR NON-AFRICAN AMERICAN > 60
[2017-09-06 06:04] LABS: BASO % 0.3 % (0.0-2.0); EOS % 0.4 % (0.0-4.0); HEMOGLOBIN 7.7 g/dL (12.0-16.0); LYMPH # 0.8 K/uL (1.0-4.3); LYMPH % 13.8 % (20.0-40.0); MEAN CELL VOLUME 101.2 fl (81.0-99.0); MEAN CORPUSCULAR HEMOGLOBIN 33.4 pg (27.0-31.0); MEAN PLATELET VOLUME 6.2 fl (7.2-11.7); MONO # 0.2 K/uL (0.0-0.8); MONO % 4.1 % (0.0-10.0); NEUT # 4.6 K/uL (1.8-7.0); NEUT % 81.4 % (50.0-75.0); NRBC % 0.1 % (0.0-0.0); RBC 2.31 Mil/uL (3.80-5.20); RED CELL DISTRIBUTION WIDTH 23.2 % (11.5-14.5); WHITE BLOOD COUNT 5.6 K/uL (4.8-10.8)
[2017-09-06 06:14] LABS: INR 1.2 (0.9-1.2); PARTIAL THROMBOPLASTIN TIME 27.9 Seconds (25.6-37.1); PROTHROMBIN TIME 13.4 Seconds (9.8-13.1)
[2017-09-06 06:46] LABS: ALB/GLOB RATIO 0.5 (1.0-2.1); ALBUMIN 3.2 g/dL (3.5-5.0); ALT/SGPT 15 U/L (9-52); AST/SGOT 48 U/L (14-36); BLOOD UREA NITROGEN 15 mg/dl (7-17); CALCIUM 8.9 mg/dL (8.4-10.2); GFR AFRICAN-AMERICAN > 60; GFR NON-AFRICAN AMERICAN > 60; HDL CHOLESTEROL 29 MG/DL (30-70); LDL CHOLESTEROL < 30 mg/dL (0-129)
[2017-09-06] MEDS: Albuterol-Ipratrop 3 mg / 0.5 (3 ml) UD INH SCH ×2 (08:03→15:33)
[2017-09-06] MEDS ORDERED: Albuterol-Ipratrop 3 mg / 0.5 (3 ml) UD ONE (08:08)
--- NOTE | 2017-09-06 10:17 | RAD ---
PROCEDURE: Radiographs of the right elbow. HISTORY: fall COMPARISON: No prior. FINDINGS: BONES: There is marked osteopenia suggesting osteoporosis which could limit the identification nondisplaced fractures. None is clearly identified. No destructive bony lesion is evident. JOINTS: Degenerative cortical sclerosis appreciate throughout the elbow joint compatible with moderate osteoarthritis. SOFT TISSUES: Normal. JOINT EFFUSION: None. OTHER FINDINGS: None. IMPRESSION: No definite fracture or destructive bony lesion right elbow. Marked osteopenia may limit the identification nondisplaced fracture fractures, though none are clearly identified, and suggests advanced osteoporosis.
--- NOTE | 2017-09-06 10:22 | RAD ---
PROCEDURE: Radiographs of the Right Forearm HISTORY: fall COMPARISON: None available. TECHNIQUE: Frontal and lateral views obtained. FINDINGS: BONES: No fracture or destructive bony lesion is appreciable. Gross ostepenia suggests advance osteoporosis which can limit the identification of non-displaced fractures, though none are clearly evident at this time. JOINT SPACES: Moderate degenerative changes seen both at the wrist and elbow joints. OTHER FINDINGS: None. IMPRESSION: No dislocation or displaced fracture appreciated grossly. Gross ostepenia suggests advance osteoporosis which can limit the identification of non-displaced fractures, though none are clearly evident at this time.
--- NOTE | 2017-09-06 10:23 | RAD ---
PROCEDURE: Radiographs of the right humerus. HISTORY: fall COMPARISON: None. FINDINGS: BONES: No acute fracture or destructive bony lesion identified. Gross ostepenia suggests advance osteoporosis which can limit the identification of non-displaced fractures, though none are clearly evident at this time. SOFT TISSUES: Normal. OTHER FINDINGS: None. IMPRESSION: No definite fracture appreciated. Gross ostepenia suggests advance osteoporosis which can limit the identification of non-displaced fractures, though none are clearly evident at this time.
--- NOTE | 2017-09-06 10:26 | RAD ---
PROCEDURE: Radiographs of the pelvis. HISTORY: fall COMPARISON: Pelvis radiograph 08/11/2014. FINDINGS: BONES: Pelvic Bones: Gross ostepenia suggests advance osteoporosis which can limit the identification of non-displaced fractures, though none are clearly evident at this time. No definite destructive bony lesion appreciable overall, the pelvic ring appears stable. There is obscuring of the iliac bones and sacrum by bowel. Hips: Degenerative changes are moderate but stable bilaterally, prior primarily represented by cortical sclerosis at the articular surfaces. JOINTS: Sacroiliac Joints: Grossly appearing intact though degenerative once again. They are obscured by overlying bowel. Pubic Symphysis: Unremarkable. OTHER FINDINGS: None. IMPRESSION: Limited study due to marked osteopenia as well as overlying bowel as discussed above. A definitive fracture or destructive bony lesion is not apparent at this time though degenerative sacroiliac and hip joint changes are seen symmetrically bilaterally.
--- NOTE | 2017-09-06 10:31 | RAD ---
PROCEDURE: CHEST RADIOGRAPH, 1 VIEW HISTORY: fall COMPARISON: Chest radiographs 07/18/2017. FINDINGS: LUNGS: Trace alveolitis is not excluded lateral to the right hilum versus atelectasis. No similar finding seen in the left chest. PLEURA: Artifact is favored over pleural thickening at the mid to inferior right lung zone. No left pleural effusion or pneumothorax bilaterally. CARDIOVASCULAR: Cardiomegaly is apparent as well as aortic ectasis. OSSEOUS STRUCTURES: No significant abnormalities. VISUALIZED UPPER ABDOMEN: Normal. OTHER FINDINGS: None. IMPRESSION: Artifact is favored over pleural thickening at the mid to inferior right lung zone. Limited patchy atelectasis or infiltrate lateral right hilum. Stable cardiomegaly noted.
--- NOTE | 2017-09-06 10:56 | CARD ---
APPROVED REPORT EKG Measurement Heart [id number] <Conclusion> Normal sinus rhythm Abnormal ECG
--- NOTE | 2017-09-06 15:17 | CP.PCM.HP ---
History of Present Illness - History of Present Illness History of Present Illness: CC: Fall/Trauma. 87 y/o F, with generalized Osteopenia, R/A, Hx of falls, brought to ER [facility] via EMS, after a sudden onset of fall just before to arrival to hospital. Pt c/o of generalized pain after she felt on ground while at home, she states, was attempting to go to from bed to the toilet when episode of fall occurred. She was found immediate by family who called the EMS. No LOC. Pt with generalized body pain after fall, c/o of L chest wall pain, ribs pain, L-S pain, aching pain, moderate intensity 5:10, non radiated, 2 skin tear to posterior NADEGE with no bleeding, all associated to fall. Worsening symptoms: CT Chest showing: Osteopenia, marked exaggeration of thoracic Kyphosis with multiple thoracic and lumbar compression Fxs, multiple bilateral subacute rib Fx with possible acute Fx of the R sixth and seven ribs, small pleural effusions with basilar airspace disease. Cardiomegaly and atherosclerotic disease, limited evaluation of the upper abdomen, possible left lower abdominal wall hematoma. Also Hgb 8.5 yesterday, today Hgb 7.7 Aggravated factor: Movements/exercise. Pt denied: Fever, chills, n/v/d, abdominal pain, CP, syncope, palpitations, LOC , SOB, cough, sick contact, Hx of DVT /PE, recent travel out of [facility]. EKG: Normal sinus rhythm. R Elbow, R Forearm, R Humerus and Pelvis X-Ray: Negative for Fx. but Osteopenia. Head CT: Atrophy and small vessels disease, no bleed. Abd/Pelv CT: L lateral rectus hematoma. Present on Admission - Present on Admission Any Indicators Present on Admission: No Review of Systems - Constitutional Constitutional: Frequent Falls - EENT Eyes: Other (negative) Ears: Other (negative) Nose/Mouth/Throat: Other (negative) - Cardiovascular Cardiovascular: Other (Chest wall pain) - Respiratory Respiratory: Other (negative) - Gastrointestinal Gastrointestinal: Other (L lateral rectus hematoma) - Genitourinary Genitourinary: Other (negative) - Musculoskeletal Musculoskeletal: Back Pain, Neck Pain, Other (R Arm pain. ) - Integumentary Integumentary: Other (negative) - Neurological Neurological: Other (poor gait) - Psychiatric Psychiatric: Other (negative) - Endocrine Endocrine: Other (negative) - Hematologic/Lymphatic Hematologic: Other (anemia chronic) Past Patient History - Infectious Disease Hx of Infectious Diseases: None - Tetanus Immunizations Tetanus Immunization: Unknown - Past Medical History & Family History Past Medical History?: Yes Pertinent Family History: Unknown - Past Social History Smoking Status: Never Smoked Alcohol: None Drugs: Denies Home Situation {Lives}: With Family - CARDIAC Hx Cardiac Disorders: Yes Hx Atrial Fibrillation: Yes Hx Congestive Heart Failure: Yes Hx Hypercholesterolemia: Yes Hx Hypertension: Yes - PULMONARY Hx Respiratory Disorders: Yes Hx Bronchitis: Yes Hx Chronic Obstructive Pulmonary Disease (COPD): No Hx Pneumonia: Yes - NEUROLOGICAL Hx Neurological Disorder: No HX Cerebrovascular Accident: No - HEENT Hx HEENT Problems: No - RENAL Hx Chronic Kidney Disease: No - ENDOCRINE/METABOLIC Hx Hypothyroidism: No - HEMATOLOGICAL/ONCOLOGICAL Hx Blood Disorders: Yes Hx Anemia: Yes Hx Human Immunodeficiency Virus (HIV): No - INTEGUMENTARY Hx Dermatological Problems: No - MUSCULOSKELETAL/RHEUMATOLOGICAL Hx Musculoskeletal Disorders: Yes Hx Arthritis: No Hx Fractures: Yes (vertebral compression; rib ) Hx Osteoporosis: Yes Hx Rheumatoid Arthritis: No - GASTROINTESTINAL Hx Gastrointestinal Disorders: Yes Hx Constipation: Yes - GENITOURINARY/GYNECOLOGICAL Hx Genitourinary Disorders: No - PSYCHIATRIC Hx Psychophysiologic Disorder: No Hx Substance Use: No - SURGICAL HISTORY Hx Surgeries: No - ANESTHESIA Hx Anesthesia: No Hx Anesthesia Reactions: No Hx Malignant Hyperthermia: No Meds Allergies/Adverse Reactions: Allergies Allergy/AdvReac Type Severity Reaction Status Date / Time No Known Allergies Allergy Verified 11/06/16 12:32 Physical Exam - Constitutional Appears: No Acute Distress - Head Exam Head Exam: NORMAL INSPECTION - Eye Exam Eye Exam: PERRL - ENT Exam ENT Exam: Normal Exam - Neck Exam Neck exam: Positive for: Normal Inspection - Respiratory Exam Respiratory Exam: Decreased Breath Sounds - Cardiovascular Exam Cardiovascular Exam: REGULAR RHYTHM Additional comments: Mild tenderness L chest wall - GI/Abdominal Exam GI & Abdominal Exam: Normal Bowel Sounds, Soft - Extremities Exam Extremities exam: Positive for: tenderness (L shoulder.) Additional comments: R posterior humerus 2 skin tear, dressing in place. - Back Exam Back exam: vertebral tenderness Additional comments: Kyphosis - Neurological Exam Neurological exam: Alert, Oriented x3 Additional comments: follows commands. - Skin Skin Exam: Warm Results - Vital Signs Recent Vital Signs: Last Vital Signs Temp 97.7 F 09/06/17 12:35 Pulse 88 09/06/17 12:35 Resp 18 09/06/17 12:35 BP 132/78 09/06/17 12:35 Pulse Ox 90 L 09/06/17 12:47 reviewed Dave - Labs Result Diagrams: 09/07/17 04:37 09/07/17 04:37 Labs: Laboratory Results - last 24 hr 09/05/17 09/05/17 09/05/17 18:18 18:18 22:00 WBC 6.2 RBC 2.54 L Hgb 8.5 L D Hct 26.4 L MCV 104.0 H D MCH 33.3 H MCHC 32.0 L RDW 23.5 H Plt Count 220 MPV 6.5 L Neut % (Auto) 82.6 H Lymph % (Auto) 12.0 L [place] % (Auto) 4.9 Eos % (Auto) 0.3 Baso % (Auto) 0.2 Neut # (Auto) 5.1 Lymph # (Auto) 0.7 L [place] # (Auto) 0.3 Eos # (Auto) 0.0 Baso # (Auto) 0.0 PT INR APTT Sodium 147 Potassium 4.2 Chloride 105 Carbon Dioxide 27 Anion Gap 19 BUN 19 H Creatinine 0.7 Est GFR ( Amer) > 60 Est GFR (Non-Af Amer) > 60 Random Glucose 159 H Calcium 9.2 Iron Ferritin Total Bilirubin AST ALT Alkaline Phosphatase Total Creatine Kinase 36 Total Protein Albumin Globulin Albumin/Globulin Ratio Triglycerides Cholesterol LDL Cholesterol Direct HDL Cholesterol Vitamin B12 TSH 3rd Generation Stool Occult Blood Negative Blood Type Antibody Screen BBK History Checked 09/06/17 09/06/17 09/06/17 01:00 01:00 01:00 WBC 6.5 RBC 2.47 L Hgb 8.1 L Hct 24.8 L MCV 100.5 H D MCH 32.6 H MCHC 32.5 L RDW 22.7 H Plt Count 205 MPV 6.3 L Neut % (Auto) 84.4 H Lymph % (Auto) 11.8 L [place] % (Auto) 3.5 Eos % (Auto) 0.1 Baso % (Auto) 0.2 Neut # (Auto) 5.5 Lymph # (Auto) 0.8 L [place] # (Auto) 0.2 Eos # (Auto) 0.0 Baso # (Auto) 0.0 PT 13.5 H INR 1.2 APTT 29.9 Sodium 147 Potassium 4.3 Chloride 104 Carbon Dioxide 29 Anion Gap 18 BUN 16 Creatinine 0.7 Est GFR ( Amer) > 60 Est GFR (Non-Af Amer) > 60 Random Glucose 104 Calcium 9.0 Iron Ferritin Total Bilirubin 0.5 AST 35 ALT 12 Alkaline Phosphatase 77 Total Creatine Kinase Total Protein 9.4 H Albumin 3.3 L Globulin 6.1 H Albumin/Globulin Ratio 0.5 L Triglycerides Cholesterol LDL Cholesterol Direct HDL Cholesterol Vitamin B12 TSH 3rd Generation Stool Occult Blood Blood Type Antibody Screen BBK History Checked 09/06/17 09/06/17 09/06/17 03:00 05:50 05:50 WBC 5.6 RBC 2.31 L Hgb 7.7 L Hct 23.4 L MCV 101.2 H MCH 33.4 H MCHC 33.0 RDW 23.2 H Plt Count 192 MPV 6.2 L Neut % (Auto) 81.4 H Lymph % (Auto) 13.8 L [place] % (Auto) 4.1 Eos % (Auto) 0.4 Baso % (Auto) 0.3 Neut # (Auto) 4.6 Lymph # (Auto) 0.8 L [place] # (Auto) 0.2 Eos # (Auto) 0.0 Baso # (Auto) 0.0 PT 13.4 H INR 1.2 APTT 27.9 Sodium Potassium Chloride Carbon Dioxide Anion Gap BUN Creatinine Est GFR ( Amer) Est GFR (Non-Af Amer) Random Glucose Calcium Iron Ferritin Total Bilirubin AST ALT Alkaline Phosphatase Total Creatine Kinase Total Protein Albumin Globulin Albumin/Globulin Ratio Triglycerides Cholesterol LDL Cholesterol Direct HDL Cholesterol Vitamin B12 TSH 3rd Generation Stool Occult Blood Blood Type A POSITIVE Antibody Screen Negative BBK History Checked Patient has bt 09/06/17 09/06/17 09/06/17 05:50 05:50 05:50 WBC RBC Hgb Hct MCV MCH MCHC RDW Plt Count MPV Neut % (Auto) Lymph % (Auto) [place] % (Auto) Eos % (Auto) Baso % (Auto) Neut # (Auto) Lymph # (Auto) [place] # (Auto) Eos # (Auto) Baso # (Auto) PT INR APTT Sodium 148 Potassium 4.4 Chloride 106 Carbon Dioxide 30 Anion Gap 16 BUN 15 Creatinine 0.7 Est GFR ( Amer) > 60 Est GFR (Non-Af Amer) > 60 Random Glucose 95 Calcium 8.9 Iron 74 Ferritin 156.0 Total Bilirubin 0.6 AST 48 H D ALT 15 Alkaline Phosphatase 76 Total Creatine Kinase Total Protein 9.0 H Albumin 3.2 L Globulin 5.8 H Albumin/Globulin Ratio 0.5 L Triglycerides 43 D Cholesterol 68 LDL Cholesterol Direct < 30 HDL Cholesterol 29 L Vitamin B12 466 TSH 3rd Generation 1.68 Stool Occult Blood Blood Type Antibody Screen BBK History Checked reviewed J.P. - EKG Data EKG comments: reviewed J.P. - Imaging and Cardiology Chest x-ray Status: Report reviewed by me (ManoloP.) CT scan - chest Status: Report reviewed by me (ManoloP.) CT scan - head Status: Report reviewed by me (J.P.) Additional comment: X-Ray of: R Elbow, R Forearm, R Humerus, Pelvis, all reviewed J.P. Assessment & Plan (1) Fall Status: Acute Priority: High (2) Nontraumatic rectus hematoma Status: Acute Comment: Left lateral (3) Skin tear of right upper arm without complication Status: Acute Priority: High (4) Rib fracture Status: Acute Priority: High (5) Spinal compression fracture Status: Acute Priority: High (6) Anemia Status: Chronic Priority: High (7) Back pain Status: Chronic Priority: High - Date & Time Date: 09/06/17 Time: 14:30
[2017-09-06] MEDS: Ferrous Sulfate 300 mg/5 mL Liq UD PO SCH (21:51)
[2017-09-06] MEDS: Lidocaine 5% Patch TD SCH (21:55)
[2017-09-07] MEDS: Albuterol-Ipratrop 3 mg / 0.5 (3 ml) UD INH SCH ×3 (00:33→16:15)
[2017-09-07 05:56] LABS: HEMOGLOBIN 7.5 g/dL (12.0-16.0); MEAN CELL VOLUME 100.8 fl (81.0-99.0); MEAN CORPUSCULAR HEMOGLOBIN 33.1 pg (27.0-31.0); MEAN CORPUSCULAR HGB CONC 32.8 g/dL (33.0-37.0); RBC 2.28 Mil/uL (3.80-5.20); RED CELL DISTRIBUTION WIDTH 22.5 % (11.5-14.5); WHITE BLOOD COUNT 3.9 K/uL (4.8-10.8)
[2017-09-07 06:25] LABS: ALB/GLOB RATIO 0.5 (1.0-2.1); ALBUMIN 3.1 g/dL (3.5-5.0); ALT/SGPT 15 U/L (9-52); AST/SGOT 38 U/L (14-36); BLOOD UREA NITROGEN 14 mg/dl (7-17); CALCIUM 8.8 mg/dL (8.4-10.2); GFR AFRICAN-AMERICAN > 60; GFR NON-AFRICAN AMERICAN > 60
[2017-09-07] MEDS: Lidocaine 5% Patch TD SCH (08:25)
[2017-09-07] MEDS: Calcium-Vit D 500 mg-200 Units Tab UD PO SCH (08:33)
[2017-09-07] MEDS: Metoprolol Succinate 25 mg XL Tab PO SCH (08:33)
[2017-09-07] MEDS: Megestrol Acetate 40 mg/ml Cup PO SCH (08:35)
[2017-09-07] MEDS: Ferrous Sulfate 300 mg/5 mL Liq UD PO SCH ×3 (08:35→16:41)
[2017-09-07] MEDS ORDERED: diltiaZEM 120 mg/24 Hours CD Cap PO SCH (17:00)
--- NOTE | 2017-09-07 17:57 | CP.PCM.PN ---
Subjective - Date & Time of Evaluation Date of Evaluation: 09/07/17 Time of Evaluation: 11:40 - Subjective Subjective: F/U Fall/trauma. Objective - Vital Signs/Intake and Output Vital Signs (last 24 hours): Temp Pulse Resp BP Pulse Ox 98 F 81 20 115/72 99 09/07/17 16:21 09/07/17 16:40 09/07/17 16:21 09/07/17 16:42 09/07/17 16:21 - Medications Medications: Current Medications Acetaminophen (Tylenol 325mg Tab) 650 mg PO Q6 PRN PRN Reason: Pain, Mild (1-3) Last Admin: 09/06/17 21:50 Dose: 650 mg Albuterol/Ipratropium (Duoneb 3 Mg/0.5 Mg (3 Ml) Ud) 3 ml INH RQ8 [facility] Last Admin: 09/07/17 16:15 Dose: 3 ml Amiodarone HCl (Cordarone) 200 mg PO DAILY@1300 [facility] Last Admin: 09/07/17 13:40 Dose: 200 mg Aspirin (Aspirin Chewable) 81 mg PO DAILY [facility] Last Admin: 09/07/17 08:35 Dose: 81 mg Calcium/Vitamin D (Oyster Shell Calcium/Vitamin D 500 Mg-200 Iu) 1 tab PO DAILY [facility] Last Admin: 09/07/17 08:33 Dose: 1 tab Diltiazem HCl (Cardizem Cd) 120 mg PO QD5 [facility] Last Admin: 09/07/17 16:40 Dose: 120 mg Docusate Sodium (Colace) 100 mg PO BID [facility] Last Admin: 09/07/17 16:40 Dose: 100 mg Ferrous Sulfate (Feosol Liq) 300 mg PO TID [facility] Last Admin: 09/07/17 16:41 Dose: 300 mg Furosemide (Lasix) 20 mg PO BID [facility] Last Admin: 09/07/17 16:42 Dose: 20 mg Lidocaine (Lidoderm) 1 ea TD DAILY [facility] Last Admin: 09/07/17 08:25 Dose: 1 ea Megestrol Acetate (Megace) 400 mg PO DAILY [facility] Last Admin: 09/07/17 08:35 Dose: 400 mg Metoprolol Succinate (Toprol Xl) 25 mg PO DAILY [facility] Last Admin: 09/07/17 08:33 Dose: 25 mg Pantoprazole Sodium (Protonix Inj) 40 mg IVP DAILY [facility] Last Admin: 03/22/18 08:37 Dose: 40 mg - Labs Labs: 09/07/17 04:37 09/07/17 04:37 PT 13.4 Seconds (9.8-13.1) H 09/06/17 05:50 INR 1.2 (0.9-1.2) 09/06/17 05:50 APTT 27.9 Seconds (25.6-37.1) 09/06/17 05:50 - Constitutional Appears: No Acute Distress - Head Exam Head Exam: NORMAL INSPECTION - Eye Exam Eye Exam: PERRL - ENT Exam ENT Exam: Normal Exam - Neck Exam Neck Exam: Normal Inspection - Respiratory Exam Respiratory Exam: Decreased Breath Sounds - Cardiovascular Exam Cardiovascular Exam: REGULAR RHYTHM Additional comments: Mild tenderness L chest wall. - GI/Abdominal Exam GI & Abdominal Exam: Soft, Normal Bowel Sounds - Extremities Exam Extremities Exam: Tenderness (L shoulder) Additional comments: 2 Skin tears NADEGE - Back Exam Additional comments: Kyphosis - Neurological Exam Neurological Exam: Alert, Oriented x3 Additional comments: Follows commands. - Skin Skin Exam: Warm Assessment and Plan (1) Fall Status: Acute (2) Nontraumatic rectus hematoma Status: Acute (3) Skin tear of right upper arm without complication Status: Acute (4) Rib fracture Status: Acute (5) Spinal compression fracture Status: Acute (6) Anemia Status: Chronic (7) Back pain Status: Chronic
[2017-09-07 20:05] LABS: IRON 62 ug/dL (37-170)
[2017-09-07 20:14] LABS: % IRON SATURATION 29 % (20-55); TOTAL IRON BINDING CAPACITY 213 ug/dL (250-450)
[2017-09-07 22:48] LABS: FOLATE 13.1 ng/mL
[2017-09-08 05:08] VITALS: RESP 20
[2017-09-08 06:14] LABS: MEAN CELL VOLUME 94.7 fl (81.0-99.0); MEAN CORPUSCULAR HEMOGLOBIN 31.8 pg (27.0-31.0); MEAN CORPUSCULAR HGB CONC 33.6 g/dL (33.0-37.0); RBC 3.47 Mil/uL (3.80-5.20); RED CELL DISTRIBUTION WIDTH 21.9 % (11.5-14.5); WHITE BLOOD COUNT 4.2 K/uL (4.8-10.8)
[2017-09-08 07:16] LABS: BLOOD UREA NITROGEN 17 mg/dl (7-17); CALCIUM 8.8 mg/dL (8.4-10.2); GFR AFRICAN-AMERICAN > 60; GFR NON-AFRICAN AMERICAN > 60
[2017-09-08] MEDS: Albuterol-Ipratrop 3 mg / 0.5 (3 ml) UD INH SCH (08:32)
[2017-09-08] MEDS: Lidocaine 5% Patch TD SCH (09:12)
[2017-09-08] MEDS: Megestrol Acetate 40 mg/ml Cup PO SCH (09:18)
[2017-09-08] MEDS: Ferrous Sulfate 300 mg/5 mL Liq UD PO SCH ×2 (09:18→12:59)
[2017-09-08] MEDS: Calcium-Vit D 500 mg-200 Units Tab UD PO SCH (09:19)
[2017-09-08] MEDS: Metoprolol Succinate 25 mg XL Tab PO SCH (09:19)
--- NOTE | 2017-09-08 12:08 | CP.PCM.DIS ---
Provider - Provider Date of Admission: 09/06/17 00:11 Attending physician: Maximo Luque MD Diagnosis - Discharge Diagnosis (1) Fall Status: Acute Priority: High (2) Nontraumatic rectus hematoma Status: Acute (3) Skin tear of right upper arm without complication Status: Acute Priority: High (4) Rib fracture Status: Acute Priority: High (5) Spinal compression fracture Status: Acute Priority: High (6) Anemia Status: Chronic Priority: High (7) Back pain Status: Chronic Priority: High Hospital Course - Lab Results Lab Results: Most Recent Lab Values WBC 4.2 K/uL (4.8-10.8) L 09/08/17 05:30 RBC 3.47 Mil/uL (3.80-5.20) L 09/08/17 05:30 Hgb 11.0 g/dL (12.0-16.0) L D 09/08/17 05:30 Hct 32.9 % (34.0-47.0) L 09/08/17 05:30 MCV 94.7 fl (81.0-99.0) D 09/08/17 05:30 MCH 31.8 pg (27.0-31.0) H 09/08/17 05:30 MCHC 33.6 g/dL (33.0-37.0) 09/08/17 05:30 RDW 21.9 % (11.5-14.5) H 09/08/17 05:30 Plt Count 181 K/uL (130-400) 09/08/17 05:30 MPV 6.2 fl (7.2-11.7) L 09/06/17 05:50 Neut % (Auto) 81.4 % (50.0-75.0) H 09/06/17 05:50 Lymph % (Auto) 13.8 % (20.0-40.0) L 09/06/17 05:50 [place] % (Auto) 4.1 % (0.0-10.0) 09/06/17 05:50 Eos % (Auto) 0.4 % (0.0-4.0) 09/06/17 05:50 Baso % (Auto) 0.3 % (0.0-2.0) 09/06/17 05:50 Neut # (Auto) 4.6 K/uL (1.8-7.0) 09/06/17 05:50 Lymph # (Auto) 0.8 K/uL (1.0-4.3) L 09/06/17 05:50 [place] # (Auto) 0.2 K/uL (0.0-0.8) 09/06/17 05:50 Eos # (Auto) 0.0 K/uL (0.0-0.7) 09/06/17 05:50 Baso # (Auto) 0.0 K/uL (0.0-0.2) 09/06/17 05:50 PT 13.4 Seconds (9.8-13.1) H 09/06/17 05:50 INR 1.2 (0.9-1.2) 09/06/17 05:50 APTT 27.9 Seconds (25.6-37.1) 09/06/17 05:50 Sodium 143 mmol/l (132-148) 09/08/17 05:30 Potassium 4.1 MMOL/L (3.6-5.0) 09/08/17 05:30 Chloride 98 mmol/L (98-107) 09/08/17 05:30 Carbon Dioxide 29 mmol/L (22-30) 09/08/17 05:30 Anion Gap 20 (10-20) 09/08/17 05:30 BUN 17 mg/dl (7-17) 09/08/17 05:30 Creatinine 0.6 mg/dl (0.7-1.2) L 09/08/17 05:30 Est GFR ( Amer) > 60 09/08/17 05:30 Est GFR (Non-Af Amer) > 60 09/08/17 05:30 Random Glucose 89 mg/dL (65-105) 09/08/17 05:30 Calcium 8.8 mg/dL (8.4-10.2) 09/08/17 05:30 Iron 62 ug/dL (37-170) 09/07/17 13:23 TIBC 213 ug/dL (250-450) L 09/07/17 13:23 % Saturation 29 % (20-55) 09/07/17 13:23 Ferritin 154.0 ng/Ml (11.1-264.0) 09/07/17 13:23 Total Bilirubin 0.6 mg/dl (0.2-1.3) 09/07/17 04:37 AST 38 U/L (14-36) H D 09/07/17 04:37 ALT 15 U/L (9-52) 09/07/17 04:37 Alkaline Phosphatase 78 U/L (38-126) 09/07/17 04:37 Total Creatine Kinase 36 U/L (30-135) 09/05/17 18:18 Total Protein 8.8 G/DL (6.3-8.2) H 09/07/17 04:37 Albumin 3.1 g/dL (3.5-5.0) L 09/07/17 04:37 Globulin 5.7 gm/dL (2.2-3.9) H 09/07/17 04:37 Albumin/Globulin Ratio 0.5 (1.0-2.1) L 09/07/17 04:37 Triglycerides 43 mg/DL (0-149) D 09/06/17 05:50 Cholesterol 68 mg/dL (0-199) 09/06/17 05:50 LDL Cholesterol Direct < 30 mg/dL (0-129) 09/06/17 05:50 HDL Cholesterol 29 MG/DL (30-70) L 09/06/17 05:50 Vitamin B12 316 pg/mL (239-931) 09/07/17 13:23 Folate 13.1 ng/mL 09/07/17 13:23 TSH 3rd Generation 1.68 mIU/ML (0.46-4.68) 09/06/17 05:50 Stool Occult Blood Negative (NEGATIVE) 09/05/17 22:00 Blood Type A POSITIVE 09/06/17 03:00 Antibody Screen Negative 09/06/17 03:00 Crossmatch See Detail 09/06/17 03:00 BBK History Checked Patient has bt 09/06/17 03:00 Discharge Exam - Head Exam Head Exam: NORMAL INSPECTION Discharge Plan - Follow Up Plan Condition: FAIR Disposition: HOME/ ROUTINE
[2017-09-08 12:37] VITALS: BP 136/81; PULSE 79; TEMP 97.3; O2SAT 99
--- NOTE | 2017-09-08 12:48 | PQF GENQUE ---
Dr. Luque, Please specify the type and acuity of heart failure in your progress notes: VERSUS hx. of CHF and not currently treated etc. 1. 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 ACUITY: Acute Chronic Acute on chronic Other (please specify) Clinically unable to determine Unknown 09/06 CXR; Artifact is favored over pleural thickening at the mid to inferior right lung zone. Limited patchy atelectasis or infiltrate lateral right hilum. Stable cardiomegaly noted. H and P: Cardiac: Hx Congestive Heart Failure: Yes -Lasix 20 mg BID This form is a permanent part of the medical record Clarification of your documentation is requested to better reflect the severity of illness and intensity of treatment of your patient. Indicators present [] Specify: [] [] Specify: [] [] Specify: [] [] Specify: [] Location in the medical record that reflects the above clinical findings: [] Treatment Provided: [] PHYSICIAN'S RESPONSE Based on your medical judgment of the clinical indicators outlined above please clarify the following: [] Practitioner response [] If unable to determine, please check the box, sign and date. Present On Admission (POA) Indicator: [] Present at the time of admission [] Not present at the time of admission [] Clinically Undetermined In responding to this query, please exercise your independent professional judgment. The fact that a question is asked does not imply that any particular answer is desired or expected. Thank you for your clarification on this documentation. If you have any questions please call. * Thank you, Dimple Rodrigues RN ext. #[phone] MTDD
--- NOTE | 2017-09-08 13:07 | PQF GENQUE ---
Dr. Luque, Please clarify the type of anemia? : if known Blood loss anemia, acute Blood loss anemia, chronic Chronic anemia Deficiency anemia (please specify type) Due to/in/with antineoplastic chemotherapy Due to/in/with chronic kidney disease Due to/in/with kidney failure Due to/in/with neoplastic disease Iron deficiency anemia Macrocytic anemia Microcytic anemia Normocytic anemia Postoperative blood loss anemia Pernicious anemia Other anemia (please specify) Clinically unable to determine RBC:2.54 H/H: 8.5/26.4->11.0/32.9 Iron:74->.62 Ferritin:156.0 TIBC: 213 H and P; Assess:(1) Fall Status: Acute Priority: High (2) Nontraumatic rectus hematoma Status: Acute Comment: Left lateral (3) Skin tear of right upper arm without complication Status: Acute (4) Rib fracture Status: Acute (5) Spinal compression fracture Status: Acute (6) Anemia Status: Chronic (7) Back pain Status: Chronic -ferrous sulfate, 09/07: transfuse 2 units PRBC This form is a permanent part of the medical record Clarification of your documentation is requested to better reflect the severity of illness and intensity of treatment of your patient. Indicators present [] Specify: [] [] Specify: [] [] Specify: [] [] Specify: [] Location in the medical record that reflects the above clinical findings: [] Treatment Provided: [] PHYSICIAN'S RESPONSE Based on your medical judgment of the clinical indicators outlined above please clarify the following: [] Practitioner response [] If unable to determine, please check the box, sign and date. Present On Admission (POA) Indicator: [] Present at the time of admission [] Not present at the time of admission [] Clinically Undetermined In responding to this query, please exercise your independent professional judgment. The fact that a question is asked does not imply that any particular answer is desired or expected. Thank you for your clarification on this documentation. If you have any questions please call. * Thank you, Dimple Rodrigues RN ext. #[phone] MTDD
== END 2017-09-08 15:00 | DRG 552 ==
LOC: H.ER 16:48 → H.ERHOLD 09-06 00:11 → H.TEL 09-06 08:49
PROVIDERS: ADMIT Internal Medicine Pulmonary Disease; ATTEND Internal Medicine Pulmonary Disease
DX: S32.010A Wedge compression fracture of first lumbar vertebra, initial encounter for closed fracture (principal); I48.91 Unspecified atrial fibrillation; I13.0 Hypertensive heart and chronic kidney disease with heart failure and stage 1 through stage 4 chronic kidney disease, or unspecified chronic kidney disease; S22.41XA Multiple fractures of ribs, right side, initial encounter for closed fracture; S06.0X9A Concussion with loss of consciousness of unspecified duration, initial encounter; W06.XXXA Fall from bed, initial encounter; M40.204 Unspecified kyphosis, thoracic region; M81.0 Age-related osteoporosis without current pathological fracture; Y93.9 Activity, unspecified; Y92.9 Unspecified place or not applicable; S30.1XXA Contusion of abdominal wall, initial encounter; S41.111A Laceration without foreign body of right upper arm, initial encounter; Z87.01 Personal history of pneumonia (recurrent); Z91.81 History of falling; J40 Bronchitis, not specified as acute or chronic; K59.00 Constipation, unspecified; M54.9 Dorsalgia, unspecified; E78.00 Pure hypercholesterolemia, unspecified; I73.9 Peripheral vascular disease, unspecified; D64.89 Other specified anemias